=== PATIENT | male | born 1955 | race Caucasian/White ===

== ENCOUNTER 2024-08-12 09:55 | Emergency (ER) | payer MEDICARE, SELFPAY ==
--- OUTSIDE RECORDS SUMMARY | 2024-08-12 09:58 | XMS_ITS | Clinical Summary ---
Author Organization [place] Address [facility] [place] [address] Care Team Providers Care Crystal Attacher Name Role Phone [facility], [facility] Primary Care Provider Allergies No known active allergies Medications albuterol (PROAIR HFA/PROVENTIL HFA/VENTOLIN HFA) 108 (90 Base) MCG/ACT inhalerIndicatio ns:Moderate persistent asthma with acute exacerbation,Chr onic obstructive pulmonary disease, unspecified COPD type (H) Inhale 2 puffs into the lungs every 4 hours as needed for shortness of breath, wheezing or cough. 18 g 3 5 Active ipratropium - albuterol 0.5 mg/2.5 mg/3 mL (DUONEB) 0.5-2.5 (3) MG/3ML neb solutionIndicati ons:Moderate persistent asthma with acute exacerbation,Chr onic obstructive pulmonary disease, unspecified COPD type (H) Take 1 vial (3 mLs) by nebulization every 6 hours as needed for shortness of breath, wheezing or cough. 90 mL 3 5 Active guaiFENesin (MUCINEX) 600 MG 12 hr tabletIndication s:Chronic obstructive pulmonary disease, unspecified COPD type (H) Take 2 tablets (1,200 mg) by mouth 2 times daily. 60 tablet 5 Active predniSONE (DELTASONE) 20 MG tabletIndication s:Chronic obstructive pulmonary disease, unspecified COPD type (H) 60 mg po every day x 3 days then 40 mg every day x 7 days, then 30 mg po every day x 7 days, then 20 mg po every day x 7 days, then 10 mg po every day x 10 days then stop 50 tablet Active tiotropium (SPIRIVA RESPIMAT) 2.5 MCG/ACT inhalerIndicatio ns:Chronic obstructive pulmonary disease, unspecified COPD type (H) Inhale 2 puffs into the lungs daily. 4 g 3 5 Active Olodaterol HCl (STRIVERDI RESPIMAT) 2.5 MCG/ACT AERSIndications: COPD exacerbation (H) Inhale 2 puffs into the lungs daily. 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 Moderate persistent asthma with acute exacerbati on 07/17/2023 Encounters Date Type Department Care Team Description 06/21/2024 1:15 PM PATIENT SAFETY COORDINATOR - 06/22/2024 5:18 PM PATIENT SAFETY COORDINATOR [facility] Observation Dept [address] [place] [address] Kartik Valencia MD Young, Juan C Franks MD Hepatic cirrhosis, unspecified hepatic cirrhosis type, unspecified whether ascites present (H) (Primary Dx); Acute respiratory failure with hypoxia (H); COPD exacerbation (H); Moderate persistent asthma with acute exacerbation; Chronic obstructive pulmonary disease, unspecified COPD type (H) Discharge Disposition: Home or Self Care 06/21/2024 Travel from Last 3 Months Social History Tobacco Use Types Packs/Day Years Used Date Smoking Tobacco: Never Assessed Adolescent Education Answer Date Record ed Getting School Help Needed Not on file 07/17 Sex and Gender Information Value Date Recorded Sex Assigned at Not on file Legal Sex Male 3:43 AM PATIENT SAFETY COORDINATOR Gender Identity Not on file Sexual Orientation Not on file Last Filed Vital Signs Vital Sign Reading Time Taken Comments Blood Pressure 153/73 06/22/2024 3:32 PM PATIENT SAFETY COORDINATOR Pulse 102 06/22/2024 3:32 PM PATIENT SAFETY COORDINATOR Temperature 36.7 C (98 F) 06/22/2024 3:32 PM PATIENT SAFETY COORDINATOR Respiratory Rate 20 06/22/2024 3:32 PM PATIENT SAFETY COORDINATOR Oxygen Saturation 92% 06/22/2024 3:32 PM PATIENT SAFETY COORDINATOR Inhaled Oxygen Concentration - - Weight 65.4 kg (144 lb 2.9 oz) 06/22/2024 12:26 PM PATIENT SAFETY COORDINATOR Height 177.8 cm (5' 10) 06/22/2024 12:26 PM PATIENT SAFETY COORDINATOR Body Mass Index 20.69 06/22/2024 12:26 PM PATIENT SAFETY COORDINATOR Plan of Treatment Health Maintenance Due Date Last Done Comments ADVANCE CARE PLANNING 1955 ANNUAL REVIEW OF HM ORDERS [address] COPD ACTION PLAN [address] CT COLONOGRAPHY 1957 FIT 1957 FLEX SIG 1957 SPIROMETRY 1957 sDNA (Cologuard) 1957 COLONOSCOPY 11/04/1967 COLORECTAL CANCER SCREENING 11/04/1967 Pneumococcal Vaccine: 50+ Years (1 of 2 - PCV) 1976 ZOSTER IMMUNIZATION (1 of 2) 11/04/2007 DTAP/TDAP/TD IMMUNIZATION (1 - Tdap) 06/01/2009 05/31/2009 RSV VACCINE (1 - Risk 60-74 years 1-dose series) 2017 FALL RISK ASSESSMENT 2022 MEDICARE ANNUAL WELLNESS VISIT 2022 COVID-19 Vaccine ( - 2023- season) 2024 INFLUENZA VACCINE (#1) 2024 04/07/2010 PHQ-2 (once per calendar year) 2024 GLUCOSE 06/22/2027 06/22/2024, 05/31, 07/19/2023, Additional history exists LIPID 07/18/2028 07/18/2023 HEPATITIS A IMMUNIZATION Completed 008, 03/13/2007, 02/10/2007 HEPATITIS B IMMUNIZATION Completed 008, 03/13/2007, 02/10/2007 HEPATITIS C SCREENING Completed 2009 HPV IMMUNIZATION Aged Out No longer e ligible based on patient's age to complete this topic MENINGITIS IMMUNIZATION Aged Out No l onger eligible based on patient's age to complete this topic Procedures Procedure Name Priority Date/Time Associated Diagnosis Comments LACTIC ACID WHOLE BLOOD STAT 06/22/2024 8:27 AM PATIENT SAFETY COORDINATOR BASIC METABOLIC PANEL STAT 06/22/2024 8:27 AM PATIENT SAFETY COORDINATOR LACTIC ACID WHOLE BLOOD STAT 06/21/2024 6:01 PM PATIENT SAFETY COORDINATOR TROPONIN T, HIGH SENSITIVITY STAT 06/21/2024 3:58 PM PATIENT SAFETY COORDINATOR LACTIC ACID WHOLE BLOOD STAT 06/21/2024 3:58 PM PATIENT SAFETY COORDINATOR CT CHEST PULMONARY EMBOLISM W CONTRAST STAT 06/21/2024 3:17 PM PATIENT SAFETY COORDINATOR XR CHEST PORT 1 VIEW STAT 06/21/2024 2:18 PM PATIENT SAFETY COORDINATOR INFLUENZA A/B, RSV AND SARS-COV2 PCR STAT 06/21/2024 1:36 PM PATIENT SAFETY COORDINATOR CBC WITH PLATELETS & DIFFERENTIAL STAT 06/21/2024 1:31 PM PATIENT SAFETY COORDINATOR D DIMER QUANTITATIVE STAT 06/21/2024 1:31 PM PATIENT SAFETY COORDINATOR CBC WITH PLATELETS AND DIFFERENTIAL STAT 06/21/2024 1:31 PM PATIENT SAFETY COORDINATOR EXTRA RED TOP TUBE STAT 06/21/2024 1: 31 PM PATIENT SAFETY COORDINATOR EXTRA BLUE TOP TUBE STAT 06/21/2024 1 :31 PM PATIENT SAFETY COORDINATOR NT PROBNP INPATIENT STAT 06/21/2024 1 :31 PM PATIENT SAFETY COORDINATOR BLOOD GAS VENOUS STAT 06/21/2024 1:31 PM PATIENT SAFETY COORDINATOR TROPONIN T, HIGH SENSITIVITY STAT 06/21/2024 1:31 PM PATIENT SAFETY COORDINATOR LACTIC ACID WHOLE BLOOD WITH 1X REPEAT IN 2 HR WHEN >2 STAT 06/21/2024 1:31 PM PATIENT SAFETY COORDINATOR COMPREHENSIVE METABOLIC PANEL STAT 06/21/2024 1:31 PM PATIENT SAFETY COORDINATOR EXTRA TUBE STAT 06/21/2024 1:31 PM PATIENT SAFETY COORDINATOR EKG 12-LEAD, TRACING ONLY STAT 06/21/2024 1:24 PM PATIENT SAFETY COORDINATOR EKG CARDIAC - HIM SCAN 12:00 AM PATIENT SAFETY COORDINATOR LIPID REFLEX TO DIRECT LDL PANEL Routine 07/18/2023 7:26 AM PATIENT SAFETY COORDINATOR from Last 3 Months or Most Recently Relevant to Health Maintenance Results * Lactic acid whole blood (06/22/2024 8:27 AM PATIENT SAFETY COORDINATOR) Only the most recent of3 resultswithin the time period is included. Lactic Acid 1.9 0.7 - 2.0 mmol/L 06/22/2024 8:35 AM PATIENT SAFETY COORDINATOR LABORATORY Blood STRUCTURE OF LEFT HAND / Unknown Venipuncture / Unknown 06/22/2024 8:27 AM PATIENT SAFETY COORDINATOR 06/22/2024 8:33 AM PATIENT SAFETY COORDINATOR us Monica Guy MD LAB - BLOOD ORDERABLES Final Res ult LABORATORY [facility] [address] [facility] Lab (1st floor, no room number) [place] [address] * (ABNORMAL) Basic metabolic panel (06/22/2024 8:27 AM PATIENT SAFETY COORDINATOR) Sodium 133(L) 135 - 145 mmol/L 06/22/2024 9:14 AM PATIENT SAFETY COORDINATOR LABORATORY Potassium 4.1 3.4 - 5.3 mmol/L 06/22/2024 9:14 AM PATIENT SAFETY COORDINATOR LABORATORY Chloride 103 98 - 107 mmol/L 06/22/2024 9:14 AM PATIENT SAFETY COORDINATOR LABORATORY Carbon Dioxide (CO2) 19(L) 22 - 29 mmol/L 06/22/2024 9:14 AM PATIENT SAFETY COORDINATOR LABORATORY Anion Gap 11 7 - 15 mmol/L 06/22/2024 9:14 AM PATIENT SAFETY COORDINATOR LABORATORY Urea Nitrogen 11.0 8.0 - 23.0 mg/dL 06/22/2024 9:14 AM PATIENT SAFETY COORDINATOR LABORATORY Creatinine 0.68 0.67 - 1.17 mg/dL 06/22/2024 9:14 AM PATIENT SAFETY COORDINATOR LABORATORY GFR Estimate >90 >60 mL/min/1.7 3m2 06/22/2024 9:14 AM PATIENT SAFETY COORDINATOR LABORATORY Comment:eGFR calculated usin 2020 CKD-EPI equation. Calcium 8.6(L) 8.8 - 10.4 mg/dL 06/22/2024 9:14 AM PATIENT SAFETY COORDINATOR LABORATORY Comment:Reference intervals for this test were updated on 12/13/2023 to reflect our healthy population more accurately. There may be differences in the flagging of prior results with similar values performed with this method. Those prior results can be interpreted in the context of the updated reference intervals. Glucose 112(H) 70 - 99 mg/dL 06/22/2024 9:14 AM PATIENT SAFETY COORDINATOR LABORATORY Blood STRUCTURE OF LEFT HAND / Unknown Venipuncture / Unknown 06/22/2024 8:27 AM PATIENT SAFETY COORDINATOR 06/22/2024 8:33 AM PATIENT SAFETY COORDINATOR Мария Woods PA-C LAB - BLOOD ORDERABLES F inal Result LABORATORY [facility] [address] [facility] Lab (1st floor, no room number) [place] [address], [facility] * Troponin T, High Sensitivity (06/21/2024 3:58 PM PATIENT SAFETY COORDINATOR) Only the most recent of2 resultswithin the time period is included. Pathologist [facility] Troponin T, High Sensitivity 8 <=22 ng/L 06/21/2024 4:34 PM PATIENT SAFETY COORDINATOR LABORATORY Comment: Either a High Sensitivity Troponin T baseline (0 hours) value = 100 ng/L, or an increase in High Sensitivity Troponin T = 7 ng/L at 2 hours compared to 0 hours (2-0 hours), suggests myocardial injury, and urgent clinical attention is required. If the 2-0 hours increase is <7 ng/L, a High Sensitivity Troponin T result above gender-specific reference ranges warrants further evaluation. Recommendations for further evaluation include correlation with clinical decision-making tool (e.g., HEART), a 3rd High Sensitivity Troponin T test 2 hours after the 2nd (a 20% change from baseline would represent concern), admission for observation, close PCC/cardiology follow-up, or urgent outpatient provocative testing. Blood BLOOD SPECIMEN / Unknown Venipuncture / Unknown 06/21/2024 3:58 PM PATIENT SAFETY COORDINATOR 06/21/2024 4:10 PM PATIENT SAFETY COORDINATOR us Kartik Valencia MD LAB - BLOOD ORDERABLES Final Result [facility] [address] Lab (1st floor, no room number) [place] [address], [facility] * CT Chest Pulmonary Embolism w Contrast (06/21/2024 3:17 PM PATIENT SAFETY COORDINATOR) Anatomical Region Laterality Modality Chest, SUBRAD CT BODY, UMP CT CHEST Computed Tomography 06/21/2024 3:17 PM PATIENT SAFETY COORDINATOR Impressions 06/21/2024 3:41 PM PATIENT SAFETY COORDINATOR IMPRESSION: 1. No pulmonary artery embolism. 2. Mild emphysema and mild bronchiolitis. No pneumonic infiltrate or pleural effusion. 3. Cirrhosis and upper abdominal varices likely reflecting sequelae of portal venous hypertension. 4. Cholelithiasis. Narrative 06/21/2024 3:41 PM PATIENT SAFETY COORDINATOR EXAM: CT CHEST PULMONARY EMBOLISM W CONTRAST LOCATION: [facility] DATE: 06/21/2024 INDICATION: SOB, elevated dimer, eval PE COMPARISON: CT 07/17/2023 TECHNIQUE: CT chest pulmonary angiogram during arterial phase injection of IV contrast. Multiplanar reformats and MIP reconstructions were performed. Dose reduction techniques were used. CONTRAST: 54mL Isovue 370 FINDINGS: ANGIOGRAM CHEST: Pulmonary arteries are normal caliber and negative for pulmonary emboli. Thoracic aorta is negative for dissection. No CT evidence of right heart strain. LUNGS AND PLEURA: Minimal tracheal secretions. Mild bronchial wall thickening and endobronchial mucus impaction. Minimal tree-in-bud opacities. Mild upper lobar predominant emphysema. No pneumonic consolidation or pleural effusion. MEDIASTINUM/AXILLAE: Bilateral gynecomastia. Prominent likely reactive right hilar lymph nodes are decreased in size since the prior exam. Normal heart size and no pericardial effusion. CORONARY ARTERY CALCIFICATION: Mild. UPPER ABDOMEN: Cholelithiasis. Cirrhotic liver morphology with a nodular surface contour. Partially visualized upper abdominal varices. MUSCULOSKELETAL: Spinal degenerative changes. Stable L2 vertebral body compression deformity with endplate lucencies likely reflecting intraosseous disc herniations. Procedure Note Jonathon Page MD - 06/21/2024 EXAM: CT CHEST PULMONARY EMBOLISM W CONTRAST LOCATION: [facility] DATE: 06/21/2024 INDICATION: SOB, elevated dimer, eval PE COMPARISON: CT 07/17/2023 TECHNIQUE: CT chest pulmonary angiogram during arterial phase injection ofIV contrast. Multiplanar reformats and MIP reconstructions were performed.Dose reduction techniques were used. CONTRAST: 54mL Isovue 370 FINDINGS: ANGIOGRAM CHEST: Pulmonary arteries are normal caliber and negative forpulmonary emboli. Thoracic aorta is negative for dissection. No CTevidence of right heart strain. LUNGS AND PLEURA: Minimal tracheal secretions. Mild bronchial wallthickening and endobronchial mucus impaction. Minimal iapb-sh-jebeqojplret. Mild upper lobar predominant emphysema. No pneumonicconsolidation or pleural effusion. MEDIASTINUM/AXILLAE: Bilateral gynecomastia. Prominent likely reactiveright hilar lymph nodes are decreased in size since the prior exam. Normalheart size and no pericardial effusion. CORONARY ARTERY CALCIFICATION: Mild. UPPER ABDOMEN: Cholelithiasis. Cirrhotic liver morphology with a nodularsurface contour. Partially visualized upper abdominal varices. MUSCULOSKELETAL: Spinal degenerative changes. Stable L2 vertebral bodycompression deformity with endplate lucencies likely reflectingintraosseous disc herniations. IMPRESSION: 1. No pulmonary artery embolism. 2. Mild emphysema and mild bronchiolitis. No pneumonic infiltrate orpleural effusion. 3. Cirrhosis and upper abdominal varices likely reflecting sequelae ofportal venous hypertension. 4. Cholelithiasis. us Kartik Valencia MD IMG CT ORDERABLES Final Resu lt * XR Chest Port 1 View (06/21/2024 2:18 PM PATIENT SAFETY COORDINATOR) Anatomical Region Laterality Modality Chest Digital Radiogra phy 06/21/2024 2:18 PM PATIENT SAFETY COORDINATOR Impressions 06/21/2024 2:25 PM PATIENT SAFETY COORDINATOR IMPRESSION: No focal airspace opacities, pleural effusion or pneumothorax. Normal heart size. Hyperinflated lungs. Stable small metallic fragment in the right chest wall. Narrative 06/21/2024 2:25 PM PATIENT SAFETY COORDINATOR EXAM: XR CHEST PORT 1 VIEW LOCATION: [facility] DATE: 06/21/2024 INDICATION: SOB COMPARISON: 07/17/2023 Procedure Note Rekha Moseley MD - 06/21/2024 EXAM: XR CHEST PORT 1 VIEW LOCATION: [facility] DATE: 06/21/2024 INDICATION: SOB COMPARISON: 07/17/2023 IMPRESSION: No focal airspace opacities, pleural effusion or pneumothorax.Normal heart size. Hyperinflated lungs. Stable small metallic fragment inthe right chest wall. us Kartik Valencia MD IM DIAGNOSTIC IMAGING ORDER TELLY Final Result * Influenza A/B, RSV and SARS-CoV2 PCR (COVID-19) Nasopharyngeal (06/21/2024 1:36 PM PATIENT SAFETY COORDINATOR) Influenza A PCR Negative Negative 06/21/2024 2:29 PM PATIENT SAFETY COORDINATOR LABORATORY Influenza B PCR Negative Negative 06/21/2024 2:29 PM PATIENT SAFETY COORDINATOR LABORATORY RSV PCR Negative Negative 06/21/2024 2:29 PM PATIENT SAFETY COORDINATOR LABORATORY SARS CoV2 PCR Negative Negative 06/21/2024 2:29 PM PATIENT SAFETY COORDINATOR LABORATORY Comment:NEGATIVE: SARS-CoV-2 (COVID-19) RNA not detected, presumed negative. Swab NASOPHARYNGEAL STRUCTURE / Unknown Non-blood Collection / Unknown 06/21/2024 1:36 PM PATIENT SAFETY COORDINATOR 06/21/2024 1:41 PM PATIENT SAFETY COORDINATOR [facility] LABORATORY - 06/21/2024 2:29 PM PATIENT SAFETY COORDINATOR Testing was performed using the Xpert Xpress CoV2/Flu/RSV Assay on the [employer] GeneXpert Instrument. This test should be ordered for the detection of SARS- CoV2, influenza, and RSV viruses in individuals with signs and symptoms of respiratory tract infection. This test is for in vitro diagnostic use under the [place] FDA for laboratories certified under CLIA to perform high or moderate complexity testing. This test has been [place] FDA cleared. A negative result does not rule out the presence of PCR inhibitors in the specimen or target RNA in concentration below the limit of detection for the assay. If only one viral target is positive but coinfection with multiple targets is suspected, the sample should be re-tested with another FDA cleared, approved, or authorized test, if coninfection would change clinical management. This test was validated by the [facility]. These laboratories are certified under the Clinical Laboratory Improvement Amendments of 1988 (CLIA-88) as qualified to perfom high complexity laboratory testing. Kartik Valencia MD LAB - MICRO GENERAL ORDERABL ES Final Result [facility] [address] Lab (1st floor, no room number) [place] [address], [facility] * Extra Red Top Tube (06/21/2024 1:31 PM PATIENT SAFETY COORDINATOR) Hold Specimen [facility] 06/21/2024 2:46 PM PATIENT SAFETY COORDINATOR [facility] LABORATORY Blood BLOOD SPECIMEN / Unknown Venipuncture / Unknown 06/21/2024 1:31 PM PATIENT SAFETY COORDINATOR 06/21/2024 1:42 PM PATIENT SAFETY COORDINATOR Buck Gutiérrez MD LAB - BLOOD ORDERABLES Final Result Performing Organization Address City/[facility]/ZIP Co de Phone Number [facility] [address] Lab (1st floor, no room number) [place] [address], [facility] * Extra Blue Top Tube (06/21/2024 1:31 PM PATIENT SAFETY COORDINATOR) Hold Specimen [facility] 06/21/2024 2:46 PM PATIENT SAFETY COORDINATOR LABORATORY Blood BLOOD SPECIMEN / Unknown Venipuncture / Unknown 06/21/2024 1:31 PM PATIENT SAFETY COORDINATOR 06/21/2024 1:42 PM PATIENT SAFETY COORDINATOR Buck Gutiérrez MD LAB - BLOOD ORDERABLES Final Result [facility] [address] Lab (1st floor, no room number) [place] [address], [facility] * (ABNORMAL) Lactic acid whole blood with 1x repeat in 2 hr when >2 (06/21/2024 1:31 PM PATIENT SAFETY COORDINATOR) Pathologist [facility] Lactic Acid, Initial 3.6(H) 0.7 - 2.0 mmol/L 06/21/2024 1:49 PM PATIENT SAFETY COORDINATOR [facility] LABORATORY Blood BLOOD SPECIMEN / Unknown Venipuncture / Unknown 06/21/2024 1:31 PM PATIENT SAFETY COORDINATOR 06/21/2024 1:41 PM PATIENT SAFETY COORDINATOR us Kartik Valencia MD LAB - BLOOD ORDERABLES Final Result [facility] LABORATORY [facility] [address] [facility] Lab (1st floor, no room number) [place] [address] * (ABNORMAL) CBC with platelets and differential (06/21/2024 1:31 PM PATIENT SAFETY COORDINATOR) [facility] WBC Count 5.2 4.0 - 11.0 10e3/uL 06/21/2024 2:04 PM PATIENT SAFETY COORDINATOR [facility] LABORATORY RBC Count 4.91 4.40 - 5.90 10e6/uL 06/21/2024 2:04 PM PATIENT SAFETY COORDINATOR [facility] LABORATORY Hemoglobin 15.1 13.3 - 17.7 g/dL 06/21/2024 2:04 PM PATIENT SAFETY COORDINATOR [facility] LABORATORY Hematocrit 44.6 40.0 - 53.0 % 06/21/2024 2:04 PM PATIENT SAFETY COORDINATOR [facility] LABORATORY MCV 91 78 - 100 fL 06/21/2024 2:04 PM PATIENT SAFETY COORDINATOR [facility] LABORATORY MCH 30.8 26.5 - 33.0 pg 06/21/2024 2:04 PM PATIENT SAFETY COORDINATOR [facility] LABORATORY MCHC 33.9 31.5 - 36.5 g/dL 06/21/2024 2:04 PM PATIENT SAFETY COORDINATOR [facility] LABORATORY RDW 15.7(H) 10.0 - 15.0 % 06/21/2024 2:04 PM PATIENT SAFETY COORDINATOR [facility] LABORATORY Platelet Count 137(L) 150 - 450 10e3/uL 06/21/2024 2:04 PM PATIENT SAFETY COORDINATOR [facility] LABORATORY % Neutrophils 44 % 06/21/2024 2:04 PM PATIENT SAFETY COORDINATOR [facility] LABORATORY % Lymphocytes 24 % 06/21/2024 2:04 PM PATIENT SAFETY COORDINATOR [facility] LABORATORY % Monocytes 14 % 06/21/2024 2:04 PM PATIENT SAFETY COORDINATOR [facility] LABORATORY % Eosinophils 15 % 06/21/2024 2:04 PM PATIENT SAFETY COORDINATOR [facility] LABORATORY % Basophils 3 % 06/21/2024 2:04 PM PATIENT SAFETY COORDINATOR [facility] LABORATORY % Immature Granulocytes 0 % 06/21/2024 2:04 PM PATIENT SAFETY COORDINATOR [facility] LABORATORY NRBCs per 100 WBC 0 <1 /100 025 2:04 PM PATIENT SAFETY COORDINATOR [facility] LABORATORY Absolute Neutrophils 2.3 1.6 - 8.3 10e3/uL 06/21/2024 2:04 PM PATIENT SAFETY COORDINATOR [facility] LABORATORY Absolute Lymphocytes 1.2 0.8 - 5.3 10e3/uL 06/21/2024 2:04 PM PATIENT SAFETY COORDINATOR [facility] LABORATORY Absolute Monocytes 0.7 0.0 - 1.3 10e3/uL 06/21/2024 2:04 PM PATIENT SAFETY COORDINATOR [facility] LABORATORY Absolute Eosinophils 0.8(H) 0.0 - 0.7 10e3/uL 06/21/2024 2:04 PM PATIENT SAFETY COORDINATOR [facility] LABORATORY Absolute Basophils 0.1 0.0 - 0.2 10e3/uL 06/21/2024 2:04 PM PATIENT SAFETY COORDINATOR [facility] LABORATORY Absolute Immature Granulocytes 0.0 <=0.4 10e3/uL 06/21/2024 2:04 PM PATIENT SAFETY COORDINATOR [facility] LABORATORY Absolute NRBCs 0.0 10e3/uL 06/21/2024 2:04 PM PATIENT SAFETY COORDINATOR [facility] LABORATORY Blood BLOOD SPECIMEN / Unknown Venipuncture / Unknown 06/21/2024 1:31 PM PATIENT SAFETY COORDINATOR 06/21/2024 1:42 PM PATIENT SAFETY COORDINATOR us Kartik Valencia MD LAB - BLOOD ORDERABLES Final Result RH LABORATORY [facility] [address] Lab (1st floor, no room number) [place] [address], [facility] * Nt probnp inpatient (BNP) (06/21/2024 1:31 PM PATIENT SAFETY COORDINATOR) [facility] N terminal Pro BNP Inpatient 56 0 - 900 pg/mL 06/21/2024 2:45 PM PATIENT SAFETY COORDINATOR [facility] LABORATORY Comment: Reference range shown and results flagged as abnormal are suggested inpatient cut points for confirming diagnosis if CHF in an acute setting. Establishing a baseline value for each individual patient is useful for follow-up. An inpatient or emergency department NT-proPBNP <300 pg/mL effectively rules out acute CHF, with 99% negative predictive value. The outpatient non-acute reference range for ruling out CHF is: 0-125 pg/mL (age 18 to less than 75) 0-450 pg/mL (age 75 yrs and older) Blood BLOOD SPECIMEN / Unknown Venipuncture / Unknown 06/21/2024 1:31 PM PATIENT SAFETY COORDINATOR 06/21/2024 1:42 PM PATIENT SAFETY COORDINATOR us Kartik Valencia MD LAB - BLOOD ORDERABLES Final Result RH LABORATORY [facility] [address] [facility] Lab (1st floor, no room number) [place] [address] * (ABNORMAL) D dimer quantitative (06/21/2024 1:31 PM PATIENT SAFETY COORDINATOR) [facility] D-Dimer Quantitative 1.06(H) 0.00 - 0.50 ug/mL FEU 06/21/2024 2:26 PM PATIENT SAFETY COORDINATOR [facility] LABORATORY Blood BLOOD SPECIMEN / Unknown Venipuncture / Unknown 06/21/2024 1:31 PM PATIENT SAFETY COORDINATOR 06/21/2024 1:42 PM PATIENT SAFETY COORDINATOR Narrative LABORATORY - 06/21/2024 2:26 PM PATIENT SAFETY COORDINATOR This D-dimer assay is intended for use in conjunction with a clinical pretest probability assessment model to exclude pulmonary embolism (PE) and deep venous thrombosis (DVT) in outpatients suspected of PE or DVT. The cut-off value is 0.50 ug/mL FEU. For patients 50 years of age or older, the application of age-adjusted cut-off values for D-Dimer may increase the specificity without significant effect on sensitivity. The literature suggested calculation age adjusted cut-off in ug/L = age in years x 10 ug/L. The results in this laboratory are reported as ug/mL rather than ug/L. The calculation for age adjusted cut off in ug/mL= age in years x 0.01 ug/mL. For example, the cut off for a 76 year old male is 78 x 0.01 ug/mL = 0.76 ug/mL (760 ug/L). M Gi et al. Age adjusted D-dimer cut-off levels to rule out pulmonary embolism: The ADJUST-PE Study. DEANNA 2014;311:7846-3784.; HJ Kin et al. Diagnostic accuracy of conventional or age adjusted D-dimer cutoff values in older patients with suspected venous thromboembolism. Systemic review and meta-analysis. BMJ 2013:346:f2492. us Kartik Valencia MD LAB - BLOOD ORDERABLES Final Result RH LABORATORY [facility] [address] [facility] Lab (1st floor, no room number) [place] [address], [facility] * (ABNORMAL) Comprehensive metabolic panel (06/21/2024 1:31 PM PATIENT SAFETY COORDINATOR) Sodium 138 135 - 145 mmol/L 06/21/2024 2:08 PM [facility] Potassium 3.9 3.4 - 5.3 mmol/L 06/21/2024 2:08 PM [facility] Carbon Dioxide (CO2) 21(L) 22 - 29 mmol/L 06/21/2024 2:08 PM [facility] Anion Gap 14 7 - 15 mmol/L 06/21/2024 2:08 PM [facility] Urea Nitrogen 8.1 8.0 - 23.0 mg/dL 06/21/2024 2:08 PM [facility] Creatinine 0.79 0.67 - 1.17 mg/dL 06/21/2024 2:08 PM [facility] GFR Estimate >90 >60 mL/min/1.7 3m2 06/21/2024 2:08 PM [facility] Comment:eGFR calculated us2020 CKD-EPI equation. Calcium 8.7(L) 8.8 - 10.4 mg/dL 06/21/2024 2:08 PM [facility] Comment:Reference intervals for this test were updated on 12/13/2023 to reflect our healthy population more accurately. There may be differences in the flagging of prior results with similar values performed with this method. Those prior results can be interpreted in the context of the updated reference intervals. Chloride 103 98 - 107 mmol/L 06/21/2024 2:08 PM [facility] Glucose 106(H) 70 - 99 mg/dL 06/21/2024 2:08 PM PATIENT SAFETY COORDINATOR [facility] Alkaline Phosphatase 134 40 - 150 U/L 06/21/2024 2:08 PM PATIENT SAFETY COORDINATOR [facility] AST 71(H) 0 - 45 U/L 06/21/2024 2:08 PM PATIENT SAFETY COORDINATOR [facility] ALT 42 0 - 70 U/L 06/21/2024 2:08 PM PATIENT SAFETY COORDINATOR [facility] Protein Total 7.5 6.4 - 8.3 g/dL 06/21/2024 2:08 PM PATIENT SAFETY COORDINATOR [facility] Albumin 3.7 3.5 - 5.2 g/dL 06/21/2024 2:08 PM PATIENT SAFETY COORDINATOR [facility] Bilirubin Total 1.7(H) <=1.2 mg/dL 06/21/2024 2:08 PM PATIENT SAFETY COORDINATOR [facility] Blood BLOOD SPECIMEN / Unknown Venipuncture / Unknown 06/21/2024 1:31 PM PATIENT SAFETY COORDINATOR 06/21/2024 1:42 PM PATIENT SAFETY COORDINATOR us Kartik Valencia MD LAB - BLOOD ORDERABLES Final Result [facility] [address] Lab (1st floor, no room number) [place] [address], [facility] * (ABNORMAL) Blood gas venous (06/21/2024 1:31 PM PATIENT SAFETY COORDINATOR) pH Venous 7.46(H) 7.32 - 7.43 06/21/2024 1:48 PM PATIENT SAFETY COORDINATOR [facility] pCO2 Venous 34(L) 40 - 50 mm Hg 06/21/2024 1:48 PM PATIENT SAFETY COORDINATOR [facility] pO2 Venous 44 25 - 47 mm Hg 06/21/2024 1:48 PM PATIENT SAFETY COORDINATOR [facility] Bicarbonate Venous 24 21 - 28 mmol/L 06/21/2024 1:48 PM PATIENT SAFETY COORDINATOR [facility] Base Excess/Deficit Venous 0.7 -3.0 - 3.0 mmol/L 06/21/2024 1:48 PM PATIENT SAFETY COORDINATOR [facility] FIO2 21 VIRGEN 06/21/2024 1:48 PM PATIENT SAFETY COORDINATOR [facility] Oxyhemoglobin Venous 78(H) 70 - 75 % 06/21/2024 1:48 PM PATIENT SAFETY COORDINATOR [facility] O2 Sat, Venous 79.5(H) 70.0 - 75.0 % 06/21/2024 1:48 PM PATIENT SAFETY COORDINATOR [facility] Blood, venous BLOOD SPECIMEN / Unknown Venipuncture / Unknown 06/21/2024 1:31 PM PATIENT SAFETY COORDINATOR 06/21/2024 1:41 PM PATIENT SAFETY COORDINATOR Narrative [facility] - 06/21/2024 1:48 PM PATIENT SAFETY COORDINATOR In healthy individuals, oxyhemoglobin (O2Hb) and oxygen saturation (SO2) are approximately equal. In the presence of dyshemoglobins, oxyhemoglobin can be considerably lower than oxygen saturation. us Kartik Valencia MD LAB - BLOOD ORDERABLES Final Result LABORATORY [facility] [address] [facility] Lab (1st floor, no room number) [place] [address] * EKG 12-lead, tracing only (06/21/2024 1:24 PM PATIENT SAFETY COORDINATOR) Systolic Blood Pressure mmHg RADIOLOGY RESULTS Diastolic Blood Pressure mmHg RADIOLOGY RESULTS Ventricular Rate 95 BPM RAD IOLOGY RESULTS Atrial Rate 95 BPM RADIOLOG Y RESULTS MS Interval 160 ms RADIOLOG Y RESULTS QRS Duration 72 ms RADIOLO GY RESULTS QT 352 ms RADIOLOGY RESULTS QTc 442 ms RADIOLOGY RESULTS P [place] 64 degrees RADIOLOGY RESULTS R AXIS 44 degrees RADIOLOGY RESULTS T [place] 78 degrees RADIOLOGY RESULTS Interpretation ECG Sinus rhythm Septal infarct (cited on or before 17-Jul-2023) Abnormal ECG When compared with ECG of 17-Jul-2023 10:13, No significant change was found Unconfirmed report - interpretation of this ECG is computer generated - see medical record for final interpretation Confirmed by - EMERGENCY ROOM, PHYSICIAN ([id number]), desk editor Natanael Brandon ([id number]) on 06/21/2024 1:36:53 PM RADIOLOGY RESULTS 06/21/2024 1:24 PM PATIENT SAFETY COORDINATOR 06/21/2024 1:36 PM PATIENT SAFETY COORDINATOR us Buck Gutiérrez MD ECG ORDERABLES Edited Result - Final RADIOLOGY RESULTS * EKG Cardiac - HIM Scan (06/21/2024 12:00 AM PATIENT SAFETY COORDINATOR) 06/21/2024 us Provider Outside ECG ORDERABLES Final Result * Lipid panel reflex to direct LDL (07/18/2023 7:26 AM PATIENT SAFETY COORDINATOR) Cholesterol 108 <200 mg/dL 07/18/2023 11:34 AM PATIENT SAFETY COORDINATOR [facility] Triglycerides 31 <150 mg/dL 07/18/2023 11:34 AM PATIENT SAFETY COORDINATOR [facility] Direct Measure HDL 57 >=40 mg/dL 07/18/2023 11:34 AM PATIENT SAFETY COORDINATOR [facility] LDL Cholesterol Calculated 45 <=100 mg/dL 07/18/2023 11:34 AM PATIENT SAFETY COORDINATOR [facility] Non HDL Cholesterol 51 <130 mg/dL 07/18/2023 11:34 AM PATIENT SAFETY COORDINATOR [facility] Patient Fasting > 8hrs? Unknown 07/18/2023 11:34 AM PATIENT SAFETY COORDINATOR [facility] Blood STRUCTURE OF RIGHT UPPER LIMB / Unknown Venipuncture / Unknown 07/18/2023 7:26 AM PATIENT SAFETY COORDINATOR 07/18/2023 7:31 AM PATIENT SAFETY COORDINATOR Narrative [facility] - 07/18/2023 11:34 AM PATIENT SAFETY COORDINATOR Cholesterol Desirable: <200 mg/dL Triglycerides Normal: Less than 150 mg/dL Borderline High: 150-199 mg/dL High: 200-499 mg/dL Very High: Greater than or equal to 500 mg/dL Direct Measure HDL Female: Greater than or equal to 50 mg/dL Male: Greater than or equal to 40 mg/dL LDL Cholesterol Desirable: <100mg/dL Above Desirable: 100-129 mg/dL Borderline High: 130-159 mg/dL High: 160-189 mg/dL Very High: >= 190 mg/dL Non HDL Cholesterol Desirable: 130 mg/dL Above Desirable: 130-159 mg/dL Borderline High: 160-189 mg/dL High: 190-219 mg/dL Very High: Greater than or equal to 220 mg/dL Мария Woods PA-C LAB - BLOOD ORDERABLES F inal Result [facility] [address] [address], [address] [place] [address], [facility] [phone] [facility] [address] Lab (1st floor, no room number) [place] [address], [facility] [phone] from Last 3 Months or Most Recently Relevant to Health Maintenance Insurance MEDICARE MEDICARE MEDICARE MEDICARE * Guarantor: [id number] Account Type Relation to Patient Date of Phone Billing Address Worker's Compensation Employer [phone] (Home) [address] [place] [address] OTHER Member Subscriber Plan / Payer (Ef fective 2005-Present) Name:Myke Aggarwal J Relation to Subscriber:Employee Name:[id number] Subscriber ID:[id number] Date of :1955 x35 (Home) Address: [address] [place] [address] Payer ID:[id number] Type:Not on file Address: [address] [place] [address] Advance Directives For more information, please contact: [phone] * Full Code (Latest Code Status on File) Date Activated Date Inactivated Comments 06/21/2024 7:14 PM 06/22/2024 7:23 PM All basic an d advanced life-sustaining interventions are performed as appropriate Question Answer Comments Code status determined by: Discussion with patie nt/ legal decision maker * Full Code Date Activated Date Inactivated Comments 07/17/2023 7:34 PM 07/19/2023 2:27 PM All basic an d advanced life-sustaining interventions are performed as appropriate Question Answer Comments Code status determined by: Discussion with alhajie nt/ legal decision maker Care Teams Crystal Attacher Relationship Specialty Start Date End Date [facility], [address] [address] PCP - General 06/21/24
--- OUTSIDE RECORDS SUMMARY | 2024-08-12 09:58 | XMS_ITS | Clinical Summary ---
Author Organization [facility] Address [address] [place] [address] Care Team Providers Care Data Coder Operator Name Role Phone Pcp, No Primary Care Provider Unavailabl e Allergies Active Allergy Reactions Criticality Noted Date Comments Carbidopa-Levodopa Palpitations 10/13/2009 Medications albuterol HFA (PROAIR HFA) 90 mcg/actuation inhalerIndicatio ns:Asthma Inhale 1-2 Puffs by mouth every 4 hours while awake. 1 Inhaler 3 09/13/2011 Active Active Problems Patient Care Coordination No te Formatting of this note migh t be different from the original. My Care Team Patient Care Team: Raimundo House as PCP - General [phone] Phan Cox RN, Antique Clocks Repairer [phone] Vania Nicholas Enterprise Software Developer [phone]- address: [facility] [employer], [address] [place] [phone] Bharti life skills coordinator volunteer at compliance attorney office [phone] And [place] [phone] Singh [phone]-[phone] Neurology Dr. Curiel - [facility] neurology clinic [phone], fax [phone], billing [phone] Silva Starks, Adult Protection case hardener [phone](direct) Social Service main # [phone] address is [address] [place] [address]. My Care Plan Problem: Under excess stress due to unemployment and awaiting social security disability Goal: System or plan in place to reduce stress Plan: Contact Vania Mack social sciences professor Responsibility: Myke and nurse wound carePhan Target Date: 06/22/2010 Achieved Date: Date and Name of User Interface Engineer: PHAN COX RN .................... 06/08/2010 3:03 PM Problem: Unable to afford medical care or medications Goal: Able to afford medical care or medications Plan: Contact [facility] social sciences professor, Vania Mack, set up appointment with Dr. Singh for F/U on Jul 06, 2010 Go to [facility] billing dept, discuss financial situation and negotiate a plan. Responsibility: Patient Target Date: 06/29/2010 Achieved Date: 08/19/2010 Date and Name of User Interface Engineer: PHAN COX RN .................... 06/15/2010 3:03 PM Problem: In unhappy or unsafe residential situation Goal: System or plan in place to improve residential situation Plan: Contact social sciences professorVania at [employer] contact Silva Starks [facility] [phone] Responsibility: Myke and nurse wound carePhan; Myke to contact Silva 09/03/10 9:45 am Target Date: 09/03/10 Discussed case with adult protection worker, Silva Starks. She will try to contact patient by letter. She also asks that when patient comes into clinic on September 03 at 9:45 am for F/U that Myke call her at [phone] to speak with her.PHAN COX RN .................... 08/03/2010 4:34 PM Achieved Date: Date and Name of User Interface Engineer: PHAN COX RN .................... 06/08/2010 3:03 PM Problem: Does not have Advance Care Plan in place Goal: Advance Care Plan on file Plan: Complete Health Care Directive Responsibility: Myke and nurse wound carePhan Target Date: 08/26/2010 Achieved Date: 06/15/2010 Date and Name of User Interface Engineer: PHAN COX RN .................... 06/08/2010 3:03 PM My Emergency Plan Medical - [facility] [phone] My Care Team Patient Care Team: Raimundo House as PCP - General [phone] Phan Cox RN- nurse wound care [phone] My Care Plan Problem: Blood pressure too high Goal: Maintains blood pressure at 130/80 or less Plan: Increase Lopressor to 50 mg two tablets twice a day and have blood pressure checked next week. See Dr. House on June 22, 2010 Responsibility: Myke Target Date: Have blood pressure checked Jun [address] House Jun 22. Achieved Date: 06/15/2010 Date and Name of User Interface Engineer: PHAN COX RN .................... 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 06/08/2010 3:08 PM Date and Name of User Interface Engineer: PHAN COX RN .................... 06/08/2010 3:08 PM Call Raimundo House MD at [phone] If Blood Pressure is 180/100 or greater. Rest for 10 minutes and recheck. If Blood Pressure is still elevated call your doctor. If Blood Pressure is 90/50 or lower. For severe headache not relieved with tylenol or other pain medications. New onset of Shortness of Breath that is not severe. Ongoing side effects from medications. Some common side effects are lightheaded, dizziness, frequent urination, dry mouth, nausea, sleepiness. Call 911 if Your are experiencing Severe shortness of breath Chest pain that is not relieved by nitroglycerin Sudden severe headache, with no known cause. Sudden Numbness or weakness of the face, arm or leg. Sudden confusion, trouble speaking or understanding. Sudden trouble seeing in one or both eyes. Sudden trouble walking, dizziness, loss of balance or coordination. 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 Depression with anxiety 07/02/2010 ACP (advance care planning) 06/15/2010 Overview (06/15/2010): Patient has identified Health Care Agent(s): Yes Add Health Care Agents: Yes Health Care Agent(s): Primary Health Care Agent: Jake Aggarwal Relationship: son Phone: Secondary Health Care Agent: NA Relationship: NA Phone: NA Conservator: NA Relationship: NA Phone: NA Guardian: NA Relationship: NA Phone: NA Patient has Advanced Care Plan Documents (Health Care Directive, POLST): Yes Advance Care Plan Documents: Health Care Directive Patient has identified Specific Treatment Preferences: Yes Specific Treatment Preferences: a.) Code Status: CPR/Attempt Resuscitation b.) Goals of Treatment: ii. Limited Interventions and treat reversible conditions. Provide interventions aimed at treatment of new or reversible illness/injury or non-life threatening chronic conditions. Duration of invasive or uncomfortable interventions should generally be limited.- Trial of intubation days or other instructions continue appropriate treatments if I will recover and return to an independent lifestyle with all of my limbs. Assessment & Plan (06/15/2010 2:53 PM BRINE ROOM LABORER): Advance Care Planning: Disease-specific Session Myke Aggarwal is a Medical Home patient at [facility]. Advance care planning discussions were completed with Myke. Initially Mkye did not wish to designate a health care agent stating that he would wish his choices, indicated in his Health Care Directive, to be honored and that he did not want his choices altered or put the burden of decision-making on his health care agent. Upon completion of his Health Care Directive, Myke wishes to name his son, Jake Aggarwal, as his health care agent and will speak to him about this. Understanding of Illness and Disease [place]: Myke identifies his medical condition as depressing and describes it as life limiting. He identifies the following symptoms of his medical condition as being the most bothersome: nerve damage and balance problem. After I got electrocuted my life changed. I don't work, I have no money, I have balance and walking problems. I also have hepatitis. I don't know how I got it. I really messed myself up with drugs, not eating properly, drinking, partying. I used drugs earlier in my life but I never shared needles. Maybe I got it from a hospital for maybe from my girlfriend who hung around other drug users. I am not sure if I want treatment for my liver. I am not sure I want chemo - that seems to be a treatment for my liver problem and I read that it can cause nerve damage and balance problems - I already have these and I wouldn't want them to get worse. I don't think I am dying from my liver - if the treatment would make my balance worse and affect my immune system, I don't know if I want to do it. My main concern is balance and coordination. Goals of Care: Myke currently hopes to maintain independence and control pain and symptoms. I wish I was never electrocuted back in 2000 -it messed up my nerves. I can't walk right and have poor balance. I can't lift heavy stuff. I miss work and having money. I can't ride a motorcycle or play sports. I'm not real social. I'd like to back to [employer]. Quality of Life: The following present and future experiences are most important for Myke to live well: reading psychology books and current events; Television - watching news and channel 2, Family Activities- visiting my mom in hospice, talking to my sons, sister and brothers: computer and and perhaps returning to technical college - I was going to classes for computer programming a while back. Myke uvaldo with serious challenges in his life: Family: 2 sons, siblings. Myke identifies the following fears and worries about his medical care: having uncontrolled pain or worsening symptoms related to his balance , becoming a physical burden and becoming a financial burden. Treatment and Care Preferences: Past experiences in dealing with family and/or friends that have or been seriously ill include friends; mother is currently in hospice. As a result of these experiences, Myke expresses these health care preferences: Myke would like to be as independent as possible. If he was in the last days of a chronic condition and unable to care for himself he would be agreeable to hospice. Summary Myke's Treatment Preferences: LOW SURVIVAL; HIGH TREATMENT BURDEN: If Myke suffered a serious complication, such that he was facing a prolonged hospital stay, required ongoing medical interventions, and the chance of living through the complication was low (for example, only 5 out of 100 would live), Myke would choose: to focus treatment on comfort and quality of life (Quality of life is more important than length of life to Myke.) If I'm not going to get well, just stop all treatment. Well for me means that I can transfer myself, can walk on my own, no help for personal hygiene - I need to be able to brush my own teeth, dress myself, comb my hair, cook for myself. HIGH SURVIVAL; LOW FUNCTIONAL STATUS: If Myke had a serious complication and had a good chance of living through the complication but it was expected that he would never be able to walk or talk again and would require 24 hour nursing care, he would choose: to focus treatment on comfort and quality of life (Quality of life is more important than length of life to Myke.) HIGH SURVIVAL; LOW COGNITIVE STATUS: If Myke had a serious complication and had a good chance of living through the complication but it was expected that he would never know who he was or who he was with and would require 24 hour nursing care, he would choose: to focus treatment on comfort and quality of life (Quality of life is more important than length of life to Myke.) CARDIO-PULMONARY RESUSCITATION (CPR): The facts, risks and benefits of CPR were discussed with Myke. If he had a sudden event that caused his heart and breathing to stop, he: WOULD want CPR attempted unless his provider determines any one of the following: he has an incurable illness or injury and is dying, he has no reasonable chance of survival if his heart stops, he has little chance of long-term survival if his heart stops and the process of resuscutation would cause significant suffering. MECHANICAL VENTILATION: If Myke had an episode where he was unable to breathe on his own, he would choose the following: attempt to use any appropriate non-invasive method to assist breathing, and use mechanical ventilation if I would get better and return to an independent level of functioning. Myke has chosen his healthcare agent to: strictly follow his wishes Follow Up Plan: Myke was encouraged to continue advance care planning discussions with his Designated Health Care Agent: son, Jake Aggarwal and primary care provider. Advance Care Planning discussion guide was given to Myke and his health care agent for review. Myke identified the following concerns during his advance care planning session: outstanding medical bills; still waiting for ruling on social security disability Questions identified for his primary care provider: address depression, hesitant about receiving treatment for hepatitis - concerns about side effects of drugs used to treat - specifically concerned about further nerve damage and immunosuppression. Documents addressed during this advance care planning session: Health Care Agents identified. Primary health care agent is Jake Aggarwal; secondary health care agent is none identified.. Health Care Directive completed and scanned into medical record. Statement of Treatment Preferences for advanced illness completed and scanned into the medical record. Recommendations/Plan: Myke and his health care agent to review Advance Care Plan. Myke would benefit from: Financial Planning-has financial social sciences professor through [employer] - Van[employer]. Social Work - [place] [employer] Care Management - Phan Cox RN, [facility] Workforce- contact: Deysi Kim Is working with compliance attorney regarding social security disability. Care Navigation brochure(s) were given to Myke and/or his healthcare agent. Advance Care Planning recommendations and Myke's concerns and questions were cc e d to his primary provider. Interviewer: PHAN COX, VERONICA .................... 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 Overview (05/07/2010): Bilateral Electrocution, accidental 05/07/2010 Allergic rhinitis, cause unspecified 04/07/2010 Right wrist pain 12/22/2009 Anxiety state, unspecified 12/22/2009 Problem situation relating to social and persona l history 12/08/2009 Abnormal ECG 11/28/2009 Hepatitis C 10/17/2009 Hypertension 10/14/2009 Pain in joint, shoulder region 10/13/2009 Knee pain, right 10/13/2009 Asthma 10/13/2009 Tobacco abuse 10/13/2009 Resolved Problems Problem Noted Date Diagnosed Date Resolved Date Medical Home 06/08/2010 11/23/2010 Overview (06/08/2010): Phan Cox RN, Antique Clocks Repairer, 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 09/14/2010 Ataxia 11/28/2009 05/07/2010 HTN (hypertension) 10/14/2009 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 Immunizations Immunization Administration Dates Next Due Influenza, IIV3 (Age >=3 years) 04/07/2010 Td (Age >=7 Years) 05/31/2009 Social History Tobacco Use Types Packs/Day Years Used Date Smoking Tobacco: Every Day Cigarettes 0.3 40 Tobacco Cessation:Ready to Q uit: No; Counseling Given: Yes Comments:4 cigs daily Alcohol Use Standard Drinks/Week Comments Yes 20 (1 standard drink = 0.6 oz pu re alcohol) Sex and Gender Information Value Date Recorded Sex Assigned at Not on file Legal Sex Male 7:24 AM BRINE ROOM LABORER Gender Identity Not on file Sexual Orientation Not on file Occupation Industry Job Start Date Job End Date unemp Not on file Not on file Not on file Obstetrics History Last Filed Vital Signs Vital Sign Reading Time Taken Comments Blood Pressure 172/94 04/22/2014 1:34 PM BRINE ROOM LABORER not taking bp med Pulse 78 04/22/2014 1:34 PM BRINE ROOM LABORER Temperature 36.4 C (97.6 F) 07/02/2010 12:08 PM BRINE ROOM LABORER Respiratory Rate - - Oxygen Saturation 95% 11/28/2009 10: 57 AM CDT Inhaled Oxygen Concentration - - Weight 67 kg (147 lb 12.8 oz) 04/22/2014 1:34 PM BRINE ROOM LABORER Height 171.5 cm (5' 7.5) 05/07/2010 1: 04 PM BRINE ROOM LABORER Body Mass Index 22.81 05/07/2010 1:04 PM BRINE ROOM LABORER Plan of Treatment Health Maintenance Due Date Last Done Comments Tdap 1968 Depression screening for age 12+ 1969 BMI (ht and wt on same day) for age 18+ 11/04/1975 Colonoscopy through age 75 2002 Lipids for age 45-75 2002 Pneumococcal series for age 50+ (1 of 1 - PCV) 11/04/2007 Zoster (shingles) series for age 50+ (1 of 2) 11/04/2007 Tetanus booster 05/31/2019 05/31/2009 COVID-19 vaccine series ( - 2023- season) 2024 Influenza Vaccine (#1) 2024 04/07/2010 RSV vaccine for adults or pr egnancy (1 - 1-dose 75+ series) 2032 Hepatitis C screening for age 18-79 Completed 11/03, 2009 Procedures Procedure Name Priority Date/Time Associated Diagnosis Comments HCV RNA QUANT Routine 2009 3:45 PM CDT Hepatitis C from Last 3 Months or Most Recently Relevant to Health Maintenance Results * (ABNORMAL) HCV RNA RT-PCR,QNT [id number] (2009 3:45 PM CDT) HCV RNA RT-PCR Detected( A) [facility] NUMBER DETECTED 237,000 IU/mL [facility] SOURCE Blood [facility] Blood specimen (specimen) BLOOD SPECIMEN / Unknown 2009 3:45 PM CDT 2009 3:38 PM CDT Narrative [facility] - 11/06/2009 3:40 PM CDT Method: Stanislav Taqman HCV Test us Jose Miguel Singh MD SEND OUTS Final Res ult [facility] [place] [address] [id number] [address] [place] [address] from Last 3 Months or Most Recently Relevant to Health Maintenance Advance Directives Documents on File Type Date Recorded Patient Controls Project Engineer Expl anation Healthcare Directive 06/15/2010 HEALTH CARE DIRECTIVE, [facility], 06/15/10 Care Teams Data Coder Operator Relationship Specialty Start Date End Date Pcp, No . PCP - General 06/07/24
--- OUTSIDE RECORDS SUMMARY | 2024-08-12 09:58 | XMS_ITS ---
Author Organization [place] Address [facility] [place] [place] [address] Care Team Providers Care Diorama Model Maker Name Role Phone Brennan Johnson Primary Care Provider Transitional Care Management Status:Closed (Closed) Start date:06/23/2024 Enrollment date:06/25/2024 End date:07/07/2024 Close reason:Goals met Continued Care and Services Coordination
[2024-08-12 10:08] VITALS: BP 128/90; PULSE 95; RESP 24; TEMP 37.1; O2SAT 95; BMI 20.8
--- NOTE | 2024-08-12 10:20 | ED_ITS ---
HPI - General Adult General Chief complaint: Extremity Pain/Injury, Lower Stated complaint: L foot injury Time Seen by Provider: 08/12/24 10:04 History of Present Illness HPI narrative: Patient is a 68-year-old gentleman with COPD who presents after stumbling at home. He injured his left great toe but did not fall. Patient states that all started when he was choking on some water. Patient states that he is back to his baseline is actually saturating 95% on room air. He is unable to bear weight on his left foot which is painful and swollen as well as bruise at the base of the 1st digit. No other problems have been noted. No chest pain he has shortness of breath is chronic. He has had no nausea no vomiting no fevers no chills no skin breakdown. Related Data Home Medications ?Medication ?Instructions ?Recorded ?Confirmed albuterol sulfate 90 mcg/actuation 2 puff inhalation Q4H PRN dyspnea 08/12/24 08/12/24 aerosol inhaler ipratropium 0.5 mg-albuterol 3 mg 1 inhalation Q6H PRN dyspnea 08/12/24 (2.5 mg base)/3 mL nebulization soln tiotropium bromide 2.5 2 puff inhalation DAILY 08/12/24 08/12/24 mcg/actuation mist for inhalation (Spiriva Respimat) Allergies Allergy/AdvReac Type Severity Reaction Status Date / Time No Known Drug Allergies Allergy Verified 08/12/24 10:04 Review of Systems Status of ROS: Reports: 10 or more systems reviewed and unremarkable except as noted in History and below PFSH PFSH Social History Smoking Status: Current every day smoker What tobacco products do you use: cigarettes Smoking packs per day: 0.25 Smoking cigarettes per day: 5.0 Years smoked: 55 Smoking pack-years: 13.75 service: No Exam Narrative: Exam Narrative: EXAM GENERAL: Patient appears comfortable and well. EYES: No scleral icterus. LYMPH: No supraclavicular or cervical lymphadenopathy. SKIN: Visible skin seen during exam normal or with benign process only. EXT: Swelling and ecchymosis noted in left great toe. HEART: Regular rate and rhythm with no murmurs, rubs, or gallops. LUNGS: Decreased breath sounds bilaterally. ABD: Soft, non tender, non distended. PSYCH: Good eye contact, speech is not pressured. Const: Vital Signs, click to edit/add: Vital Signs - 24 hr 08/12/24 10:08 Temperature 98.8 F Pulse Rate [Pulse Oximeter] 95 Respiratory Rate 24 Blood Pressure [Le ft Upper Arm] 128/90 H Pulse Oximetry 95 Oxygen Delivery Me thod Room Air Course Course ED Course: Patient seen and examined. X-ray of the left great toe ordered. Vital Signs Vital signs: Initial Vital Signs Temperature 98.8 F 08/12/24 10:08 Temperature Source Temporal Artery Scan 08/12/24 10:08 Pulse Rate 95 08/12/24 10:08 Pulse Rhythm Regular 08/12/24 10:08 Respiratory Rate 24 08/12/24 10:08 Blood Pressure 128/90 H 08/12/24 10:08 Blood Pressure Mean 102 08/12/24 10:08 Blood Pressure Position Sitting 08/12/24 10:08 Pulse Oximetry 95 08/12/24 10:08 Oxygen Delivery Method Room Air 08/12/24 10:08 Vital Signs Temperature 98.8 F 08/12/24 10:08 Pulse Rate 95 08/12/24 10:08 Respiratory Rate 24 08/12/24 10:08 Blood Pressure 128/90 H 08/12/24 10:08 Pulse Oximetry 95 08/12/24 10:08 Oxygen Delivery Method Room Air 08/12/24 10:08 Temperature 98.8 F 08/12/24 10:08 Pulse Rate 95 08/12/24 10:08 Respiratory Rate 24 08/12/24 10:08 Blood Pressure 128/90 H 08/12/24 10:08 Pulse Oximetry 95 08/12/24 10:08 Oxygen Delivery Method Room Air 08/12/24 10:08 Medical Decision Making MDM Narrative Medical decision making narrative: Patient is a 68-year-old gentleman who stumbled earlier today and has a swollen bruised left great toe. X-ray shows a proximal nondisplaced fracture. We did placement stiff shoe provided crutches. Recommend Tylenol Motrin ice and follow-up as needed. Discharge Plan Discharge Clinical Impression: Fracture of toe Patient Disposition: Home, Self-Care Condition: Stable Instructions: Toe Fracture (ED) Additional Instructions: Stiff shoe Crutches as needed Tylenol Motrin Ice Follow-up as needed. Activity Level: No Restrictions Discharge Diet: Regular Prescriptions: No Action ipratropium-albuterol 0.5 mg-3 mg(2.5 mg base)/3 mL solution for nebulization 1 INHALATION Q6H PRN (Reason: dyspnea) albuterol sulfate 90 mcg/actuation HFA aerosol inhaler 2 puff inhalation Q4H PRN (Reason: dyspnea) Spiriva Respimat 2.5 mcg/actuation mist 2 puff inhalation DAILY Follow Up/Referrals: Provider,Not a Local [Primary Care Provider] - Stand Alone Forms: [employer] Info Instructions
--- NOTE | 2024-08-12 10:20 | CRLHL7_ITS ---
For Patients: As a result of the Cures Act, medical imaging exams and procedure reports are released immediately into your electronic medical record. You may view this report before your referring provider. If you have questions, please contact your health care provider. Indication: Injury Technique: Left toe radiographs, three views Comparison: None. Findings: Bones: Nondisplaced fracture at the base of the 1st digit proximal phalanx with extension into the MTP joint. Diffuse osseous demineralization. Joint spaces: Mild 1st MTP joint osteoarthritis. Soft tissues: Soft tissue swelling of the 1st digit. Impression: Nondisplaced fracture at the base of the 1st digit proximal phalanx with extension to the MTP joint. Dictated by Cande Allen MD @ 08/12/2024 10:49:43 AM (Electronically Signed)
--- OUTSIDE RECORDS SUMMARY | 2024-08-12 10:54 | XMS_ITS ---
Author Organization [place] Address [facility] [place] [address] Care Team Providers Care Implementation Lead Name Role Phone Brennan Johnson Primary Care Provider Transitional Care Management Status:Closed (Closed) Start date:06/23/2024 Enrollment date:06/25/2024 End date:07/07/2024 Close reason:Goals met Continued Care and Services Coordination
--- OUTSIDE RECORDS SUMMARY | 2024-08-12 10:54 | XMS_ITS | Clinical Summary ---
Author Organization [place] Address [facility] access hospital0 [facility] 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 Name Role Phone [facility], [facility] Primary Care Provider Allergies No known active [...] Department Care Team Description 06/21/2024 1:15 PM SECURITY TESTER - 06/22/2024 5:18 PM SECURITY TESTER [facility] [address] [place] [address] Kartik Valencia MD Young, Juan C Franks [...] on file Legal Sex Male 3:43 AM SECURITY TESTER Gender Identity Not on file Sexual Orientation Not on file Last Filed Vital Signs Vital Sign Reading Time Taken Comments Blood Pressure 153/73 06/22/2024 3:32 PM SECURITY TESTER Pulse 102 06/22/2024 3:32 PM SECURITY TESTER Temperature 36.7 C (98 F) 06/22/2024 3:32 PM SECURITY TESTER Respiratory Rate 20 06/22/2024 3:32 PM SECURITY TESTER Oxygen Saturation 92% 06/22/2024 3:32 PM SECURITY TESTER Inhaled Oxygen Concentration - - Weight 65.4 kg (144 lb 2.9 oz) 06/22/2024 12:26 PM SECURITY TESTER Height 177.8 cm (5' 10) 06/22/2024 12:26 PM SECURITY TESTER Body Mass Index 20.69 06/22/2024 12:26 PM SECURITY TESTER Plan of Treatment Health Maintenance Due Date [...] ACID WHOLE BLOOD STAT 06/22/2024 8:27 AM SECURITY TESTER BASIC METABOLIC PANEL STAT 06/22/2024 8:27 AM SECURITY TESTER LACTIC ACID WHOLE BLOOD STAT 06/21/2024 6:01 PM SECURITY TESTER TROPONIN T, HIGH SENSITIVITY STAT 06/21/2024 3:58 PM SECURITY TESTER LACTIC ACID WHOLE BLOOD STAT 06/21/2024 3:[address] CHEST PULMONARY EMBOLISM W CONTRAST STAT 06/21/2024 3:17 PM SECURITY TESTER XR CHEST PORT 1 VIEW STAT 06/21/2024 2:18 PM SECURITY TESTER INFLUENZA A/B, RSV AND SARS-COV2 PCR STAT 06/21/2024 1:36 PM SECURITY TESTER CBC WITH PLATELETS & DIFFERENTIAL STAT 06/21/2024 1:31 PM SECURITY TESTER D DIMER QUANTITATIVE STAT 06/21/2024 1:31 PM SECURITY TESTER CBC WITH PLATELETS AND DIFFERENTIAL STAT 06/21/2024 1:31 PM SECURITY TESTER EXTRA RED TOP TUBE STAT 06/21/2024 1: 31 PM SECURITY TESTER EXTRA BLUE TOP TUBE STAT 06/21/2024 1 :31 PM SECURITY TESTER NT PROBNP INPATIENT STAT 06/21/2024 1 :31 PM SECURITY TESTER BLOOD GAS VENOUS STAT 06/21/2024 1:31 PM SECURITY TESTER TROPONIN T, HIGH SENSITIVITY STAT 06/21/2024 1:31 PM SECURITY TESTER LACTIC ACID WHOLE BLOOD WITH 1X REPEAT IN 2 HR WHEN >2 STAT 06/21/2024 1:31 PM SECURITY TESTER COMPREHENSIVE METABOLIC PANEL STAT 06/21/2024 1:31 PM SECURITY TESTER EXTRA TUBE STAT 06/21/2024 1:31 PM SECURITY TESTER EKG 12-LEAD, TRACING ONLY STAT 06/21/2024 1:24 PM SECURITY TESTER EKG CARDIAC - HIM SCAN 12:00 AM SECURITY TESTER LIPID REFLEX TO DIRECT LDL PANEL Routine 07/18/2023 7:26 AM SECURITY TESTER from Last 3 Months or Most Recently Relevant to Health Maintenance Results * Lactic acid whole blood (06/22/2024 8:27 AM SECURITY TESTER) Only the most recent of3 resultswithin the time period is included. Lactic Acid 1.9 0.7 - 2.0 mmol/L 06/22/2024 8:35 AM SECURITY TESTER LABORATORY Blood STRUCTURE OF LEFT HAND / Unknown Venipuncture / Unknown 06/22/2024 8:27 AM SECURITY TESTER 06/22/2024 8:33 AM SECURITY TESTER us Monica Guy MD LAB - BLOOD ORDERABLES Final Res ult LABORATORY [facility] [address] Lab (1st floor, no room number) [place] [address] * (ABNORMAL) Basic metabolic panel (06/22/2024 8:27 AM SECURITY TESTER) Sodium 133(L) 135 - 145 mmol/L 06/22/2024 9:14 AM SECURITY TESTER LABORATORY Potassium 4.1 3.4 - 5.3 mmol/L 06/22/2024 9:14 AM SECURITY TESTER LABORATORY Chloride 103 98 - 107 mmol/L 06/22/2024 9:14 AM SECURITY TESTER LABORATORY Carbon Dioxide (CO2) 19(L) 22 - 29 mmol/L 06/22/2024 9:14 AM SECURITY TESTER LABORATORY Anion Gap 11 7 - 15 mmol/L 06/22/2024 9:14 AM SECURITY TESTER LABORATORY Urea Nitrogen 11.0 8.0 - 23.0 mg/dL 06/22/2024 9:14 AM SECURITY TESTER LABORATORY Creatinine 0.68 0.67 - 1.17 mg/dL 06/22/2024 9:14 AM SECURITY TESTER LABORATORY GFR Estimate >90 >60 mL/min/1.7 3m2 06/22/2024 9:14 AM SECURITY TESTER LABORATORY Comment:eGFR calculated usin 2020 CKD-EPI equation. Calcium 8.6(L) 8.8 - 10.4 mg/dL 06/22/2024 9:14 AM SECURITY TESTER LABORATORY Comment:Reference intervals for this test were updated on 12/13/2023 to reflect our healthy population more accurately. There may be differences in the flagging of prior results with similar values performed with this method. Those prior results can be interpreted in the context of the updated reference intervals. Glucose 112(H) 70 - 99 mg/dL 06/22/2024 9:14 AM SECURITY TESTER LABORATORY Blood STRUCTURE OF LEFT HAND / Unknown Venipuncture / Unknown 06/22/2024 8:27 AM SECURITY TESTER 06/22/2024 8:33 AM SECURITY TESTER Мария Woods PA-C LAB - BLOOD ORDERABLES F inal Result LABORATORY [facility] Lab [address] Lab (1st floor, no room number) [place] [address], [facility] * Troponin T, High Sensitivity (06/21/2024 3:58 PM SECURITY TESTER) Only the most recent of2 resultswithin the time period is included. Pathologist [facility] Troponin T, High Sensitivity 8 <=22 ng/L 06/21/2024 4:34 PM SECURITY TESTER LABORATORY Comment: Either a High Sensitivity Troponin [...] Unknown Venipuncture / Unknown 06/21/2024 3:58 PM SECURITY TESTER 06/21/2024 4:10 PM SECURITY TESTER us Kartik Valencia MD LAB - BLOOD ORDERABLES Final Result [facility] Acute Care Lab [address] Lab (1st floor, no room number) [place] [address], [facility] * CT Chest Pulmonary Embolism w Contrast (06/21/2024 3:17 PM SECURITY TESTER) Anatomical Region Laterality Modality Chest, SUBRAD CT BODY, UMP CT CHEST Computed Tomography 06/21/2024 3:17 PM SECURITY TESTER Impressions 06/21/2024 3:41 PM SECURITY TESTER IMPRESSION: 1. No pulmonary artery embolism. 2. Mild emphysema and mild bronchiolitis. No pneumonic infiltrate or pleural effusion. 3. Cirrhosis and upper abdominal varices likely reflecting sequelae of portal venous hypertension. 4. Cholelithiasis. Narrative 06/21/2024 3:41 PM SECURITY TESTER EXAM: CT CHEST PULMONARY EMBOLISM W CONTRAST LOCATION: [facility] DATE: 06/21/2024 INDICATION: SOB, elevated dimer, eval [...] CT CHEST PULMONARY EMBOLISM W CONTRAST LOCATION: [facility] DATE: 06/21/2024 INDICATION: SOB, elevated dimer, eval [...] bronchial wallthickening and endobronchial mucus impaction. Minimal [id number]. Mild upper lobar predominant emphysema. No pneumonicconsolidation [...] Chest Port 1 View (06/21/2024 2:18 PM SECURITY TESTER) Anatomical Region Laterality Modality Chest Digital Radiogra phy 06/21/2024 2:18 PM SECURITY TESTER Impressions 06/21/2024 2:25 PM SECURITY TESTER IMPRESSION: No focal airspace opacities, pleural effusion or pneumothorax. Normal heart size. Hyperinflated lungs. Stable small metallic fragment in the right chest wall. Narrative 06/21/2024 2:25 PM SECURITY TESTER EXAM: XR CHEST PORT 1 VIEW LOCATION: [facility] DATE: 06/21/2024 INDICATION: SOB COMPARISON: 07/17/2023 Procedure Note Rekha Moseley MD - 06/21/2024 EXAM: XR CHEST PORT 1 VIEW LOCATION: [facility] DATE: 06/21/2024 INDICATION: SOB COMPARISON: 07/17/2023 IMPRESSION: No focal airspace opacities, pleural effusion or pneumothorax.Normal heart size. Hyperinflated lungs. Stable small metallic fragment inthe right chest wall. us Kartik Valencia MD IM DIAGNOSTIC IMAGING ORDER TELLY Final Result * Influenza A/B, RSV and SARS-CoV2 PCR (COVID-19) Nasopharyngeal (06/21/2024 1:36 PM SECURITY TESTER) Influenza A PCR Negative Negative 06/21/2024 2:29 PM SECURITY TESTER LABORATORY Influenza B PCR Negative Negative 06/21/2024 2:29 PM SECURITY TESTER LABORATORY RSV PCR Negative Negative 06/21/2024 2:29 PM SECURITY TESTER LABORATORY SARS CoV2 PCR Negative Negative 06/21/2024 2:29 PM SECURITY TESTER LABORATORY Comment:NEGATIVE: SARS-CoV-2 (COVID-19) RNA not detected, presumed negative. Swab NASOPHARYNGEAL STRUCTURE / Unknown Non-blood Collection / Unknown 06/21/2024 1:36 PM SECURITY TESTER 06/21/2024 1:41 PM SECURITY TESTER [facility] LABORATORY - 06/21/2024 2:29 PM SECURITY TESTER Testing was performed using the Xpert Xpress CoV2/Flu/RSV Assay on the [employer] GeneXpert Instrument. This test should be ordered [...] management. This test was validated by the [facility]. These laboratories are certified under the Clinical Laboratory Improvement Amendments of 1988 (CLIA-88) as qualified to perfom high complexity laboratory testing. Kartik Valencia MD LAB - MICRO GENERAL ORDERABL ES Final Result [facility] Lab [address] Lab (1st floor, no room number) [place] [address], [facility] * Extra Red Top Tube (06/21/2024 1:31 PM SECURITY TESTER) Hold Specimen [facility] 06/21/2024 2:46 PM SECURITY TESTER RH LABORATORY Blood BLOOD SPECIMEN / Unknown Venipuncture / Unknown 06/21/2024 1:31 PM SECURITY TESTER 06/21/2024 1:42 PM SECURITY TESTER Buck Gutiérrez MD LAB - BLOOD ORDERABLES Final Result Performing Organization Address City/[facility]/ZIP Co de Phone Number [facility] Lab [address] Lab (1st floor, no room number) [place] [address], [facility] * Extra Blue Top Tube (06/21/2024 1:31 PM SECURITY TESTER) Hold Specimen [facility] 06/21/2024 2:46 PM SECURITY TESTER LABORATORY Blood BLOOD SPECIMEN / Unknown Venipuncture / Unknown 06/21/2024 1:31 PM SECURITY TESTER 06/21/2024 1:42 PM SECURITY TESTER Buck Gutiérrez MD LAB - BLOOD ORDERABLES Final Result [facility] Lab [address] Lab (1st floor, no room number) [place] [address], [facility] * (ABNORMAL) Lactic acid whole blood with 1x repeat in 2 hr when >2 (06/21/2024 1:31 PM SECURITY TESTER) Pathologist [facility] Lactic Acid, Initial 3.6(H) 0.7 - 2.0 mmol/L 06/21/2024 1:49 PM SECURITY TESTER RH LABORATORY Blood BLOOD SPECIMEN / Unknown Venipuncture / Unknown 06/21/2024 1:31 PM SECURITY TESTER 06/21/2024 1:41 PM SECURITY TESTER us Kartik Valencia MD LAB - BLOOD ORDERABLES Final Result RH LABORATORY [facility] [address] Lab (1st floor, no room number) [place] [address] * (ABNORMAL) CBC with platelets and differential (06/21/2024 1:31 PM SECURITY TESTER) [facility] WBC Count 5.2 4.0 - 11.0 10e3/uL 06/21/2024 2:04 PM SECURITY TESTER RH LABORATORY RBC Count 4.91 4.40 - 5.90 10e6/uL 06/21/2024 2:04 PM SECURITY TESTER RH LABORATORY Hemoglobin 15.1 13.3 - 17.7 g/dL 06/21/2024 2:04 PM SECURITY TESTER RH LABORATORY Hematocrit 44.6 40.0 - 53.0 % 06/21/2024 2:04 PM SECURITY TESTER RH LABORATORY MCV 91 78 - 100 fL 06/21/2024 2:04 PM SECURITY TESTER RH LABORATORY MCH 30.8 26.5 - 33.0 pg 06/21/2024 2:04 PM SECURITY TESTER RH LABORATORY MCHC 33.9 31.5 - 36.5 g/dL 06/21/2024 2:04 PM SECURITY TESTER RH LABORATORY RDW 15.7(H) 10.0 - 15.0 % 06/21/2024 2:04 PM SECURITY TESTER RH LABORATORY Platelet Count 137(L) 150 - 450 10e3/uL 06/21/2024 2:04 PM SECURITY TESTER RH LABORATORY % Neutrophils 44 % 06/21/2024 2:04 PM SECURITY TESTER RH LABORATORY % Lymphocytes 24 % 06/21/2024 2:04 PM SECURITY TESTER RH LABORATORY % Monocytes 14 % 06/21/2024 2:04 PM SECURITY TESTER [facility] LABORATORY % Eosinophils 15 % 06/21/2024 2:04 PM SECURITY TESTER RH LABORATORY % Basophils 3 % 06/21/2024 2:04 PM SECURITY TESTER RH LABORATORY % Immature Granulocytes 0 % 06/21/2024 2:04 PM SECURITY TESTER RH LABORATORY NRBCs per 100 WBC 0 <1 /100 025 2:04 PM SECURITY TESTER RH LABORATORY Absolute Neutrophils 2.3 1.6 - 8.3 10e3/uL 06/21/2024 2:04 PM SECURITY TESTER RH LABORATORY Absolute Lymphocytes 1.2 0.8 - 5.3 10e3/uL 06/21/2024 2:04 PM SECURITY TESTER RH LABORATORY Absolute Monocytes 0.7 0.0 - 1.3 10e3/uL 06/21/2024 2:04 PM SECURITY TESTER RH LABORATORY Absolute Eosinophils 0.8(H) 0.0 - 0.7 10e3/uL 06/21/2024 2:04 PM SECURITY TESTER RH LABORATORY Absolute Basophils 0.1 0.0 - 0.2 10e3/uL 06/21/2024 2:04 PM SECURITY TESTER [facility] LABORATORY Absolute Immature Granulocytes 0.0 <=0.4 10e3/uL 06/21/2024 2:04 PM SECURITY TESTER [facility] LABORATORY Absolute NRBCs 0.0 10e3/uL 06/21/2024 2:04 PM SECURITY TESTER [facility] LABORATORY Blood BLOOD SPECIMEN / Unknown Venipuncture / Unknown 06/21/2024 1:31 PM SECURITY TESTER 06/21/2024 1:42 PM SECURITY TESTER us Kartik Valencia MD LAB - BLOOD ORDERABLES Final Result RH LABORATORY [facility] [address] Lab (1st floor, no room number) [place] [address], [facility] * Nt probnp inpatient (BNP) (06/21/2024 1:31 PM SECURITY TESTER) [facility] N terminal Pro BNP Inpatient 56 0 - 900 pg/mL 06/21/2024 2:45 PM SECURITY TESTER [facility] LABORATORY Comment: Reference range shown and [...] Unknown Venipuncture / Unknown 06/21/2024 1:31 PM SECURITY TESTER 06/21/2024 1:42 PM SECURITY TESTER us Kartik Valencia MD LAB - BLOOD ORDERABLES Final Result RH LABORATORY [facility] Lab [address] [facility] Lab (1st floor, no room number) [place] [address] * (ABNORMAL) D dimer quantitative (06/21/2024 1:31 PM SECURITY TESTER) [facility] D-Dimer Quantitative 1.06(H) 0.00 - 0.50 ug/mL FEU 06/21/2024 2:26 PM SECURITY TESTER RH LABORATORY Blood BLOOD SPECIMEN / Unknown Venipuncture / Unknown 06/21/2024 1:31 PM SECURITY TESTER 06/21/2024 1:42 PM SECURITY TESTER Narrative LABORATORY - 06/21/2024 2:26 PM SECURITY TESTER This D-dimer assay is intended for use [...] out pulmonary embolism: The ADJUST-PE Study. DEANNA 2014;311:8043-0969.; HJ Kin et al. Diagnostic accuracy of conventional or age adjusted D-dimer cutoff values in older patients with suspected venous thromboembolism. Systemic review and meta-analysis. BMJ 2013:346:f2492. us Kartik Valencia MD LAB - BLOOD ORDERABLES Final Result RH LABORATORY [facility] Lab [address] Lab (1st floor, no room number) [place] [address], [facility] * (ABNORMAL) Comprehensive metabolic panel (06/21/2024 1:31 PM SECURITY TESTER) Sodium 138 135 - 145 mmol/L 06/21/2024 2:08 PM [facility] LABORATORY Potassium 3.9 3.4 - 5.3 mmol/L 06/21/2024 2:08 PM [facility] LABOR[facility] Carbon Dioxide (CO2) 21(L) 22 - 29 mmol/L 06/21/2024 2:08 PM [facility] LAB[facility] Anion Gap 14 7 - 15 mmol/L 06/21/2024 2:08 PM [facility] Urea Nitrogen 8.1 8.0 - 23.0 mg/dL 06/21/2024 2:08 PM [facility] Creatinine 0.79 0.67 - 1.17 mg/dL 06/21/2024 2:08 PM [facility] LAB[facility] GFR Estimate >90 >60 mL/min/1.7 3m2 06/21/2024 2:08 PM [facility] LAB[facility] Comment:eGFR calculated us2020 CKD-EPI equation. Calcium 8.7(L) 8.8 - 10.4 mg/dL 06/21/2024 2:08 PM [facility] LABOR[facility] Comment:Reference intervals for this test were updated on 12/13/2023 to reflect our healthy population more accurately. There may be differences in the flagging of prior results with similar values performed with this method. Those prior results can be interpreted in the context of the updated reference intervals. Chloride 103 98 - 107 mmol/L 06/21/2024 2:08 PM [facility] LAB[facility] Glucose 106(H) 70 - 99 mg/dL 06/21/2024 2:08 PM SECURITY TESTER RH LABORATORY Alkaline Phosphatase 134 40 - 150 U/L 06/21/2024 2:08 PM SECURITY TESTER RH LABORATORY AST 71(H) 0 - 45 U/L 06/21/2024 2:08 PM SECURITY TESTER RH LABORATORY ALT 42 0 - 70 U/L 06/21/2024 2:08 PM SECURITY TESTER RH LABORATORY Protein Total 7.5 6.4 - 8.3 g/dL 06/21/2024 2:08 PM SECURITY TESTER RH LABORATORY Albumin 3.7 3.5 - 5.2 g/dL 06/21/2024 2:08 PM SECURITY TESTER [facility] LABORATORY Bilirubin Total 1.7(H) <=1.2 mg/dL 06/21/2024 2:08 PM SECURITY TESTER RH LABORATORY Blood BLOOD SPECIMEN / Unknown Venipuncture / Unknown 06/21/2024 1:31 PM SECURITY TESTER 06/21/2024 1:42 PM SECURITY TESTER us Kartik Valencia MD LAB - BLOOD ORDERABLES Final Result RH LABORATORY [facility] Lab [address] Lab (1st floor, no room number) [place] [address], [facility] * (ABNORMAL) Blood gas venous (06/21/2024 1:31 PM SECURITY TESTER) pH Venous 7.46(H) 7.32 - 7.43 06/21/2024 1:48 PM SECURITY TESTER [facility] LABORATORY pCO2 Venous 34(L) 40 - 50 mm Hg 06/21/2024 1:48 PM SECURITY TESTER [facility] LABORATORY pO2 Venous 44 25 - 47 mm Hg 06/21/2024 1:48 PM SECURITY TESTER [facility] LABORATORY Bicarbonate Venous 24 21 - 28 mmol/L 06/21/2024 1:48 PM SECURITY TESTER [facility] LABORATORY Base Excess/Deficit Venous 0.7 -3.0 - 3.0 mmol/L 06/21/2024 1:48 PM SECURITY TESTER [facility] LABORATORY FIO2 21 VIRGEN 06/21/2024 1:48 PM SECURITY TESTER [facility] LABORATORY Oxyhemoglobin Venous 78(H) 70 - 75 % 06/21/2024 1:48 PM SECURITY TESTER [facility] LABORATORY O2 Sat, Venous 79.5(H) 70.0 - 75.0 % 06/21/2024 1:48 PM SECURITY TESTER [facility] LABORATORY Blood, venous BLOOD SPECIMEN / Unknown Venipuncture / Unknown 06/21/2024 1:31 PM SECURITY TESTER 06/21/2024 1:41 PM SECURITY TESTER Narrative [facility] LABORATORY - 06/21/2024 1:48 PM SECURITY TESTER In healthy individuals, oxyhemoglobin (O2Hb) and oxygen saturation (SO2) are approximately equal. In the presence of dyshemoglobins, oxyhemoglobin can be considerably lower than oxygen saturation. us Kartik Valencia MD LAB - BLOOD ORDERABLES Final Result LABORATORY [facility] Lab [address] [facility] Lab (1st floor, no room number) [place] [address] * EKG 12-lead, tracing only (06/21/2024 1:24 PM SECURITY TESTER) Systolic Blood Pressure mmHg RADIOLOGY RESULTS Diastolic Blood Pressure mmHg RADIOLOGY RESULTS Ventricular Rate 95 BPM RAD IOLOGY RESULTS Atrial Rate 95 BPM RADIOLOG Y RESULTS WY Interval 160 ms RADIOLOG Y RESULTS QRS Duration 72 ms RADIOLO GY RESULTS QT 352 ms RADIOLOGY RESULTS QTc 442 ms RADIOLOGY RESULTS P Arma 64 degrees RADIOLOGY RESULTS R AXIS 44 degrees RADIOLOGY RESULTS T Arma 78 degrees RADIOLOGY RESULTS Interpretation ECG Sinus rhythm Septal infarct (cited on or before 17-Jul-2023) Abnormal ECG When compared with ECG of 17-Jul-2023 10:13, No significant change was found Unconfirmed report - interpretation of this ECG is computer generated - see medical record for final interpretation Confirmed by - EMERGENCY ROOM, PHYSICIAN ([id number]), commercial production editor Natanael Brandon ([id number]) on 06/21/2024 1:36:53 PM RADIOLOGY RESULTS 06/21/2024 1:24 PM SECURITY TESTER 06/21/2024 1:36 PM SECURITY TESTER us Buck Gutiérrez MD ECG ORDERABLES Edited Result - Final RADIOLOGY RESULTS * EKG Cardiac - HIM Scan (06/21/2024 12:00 AM SECURITY TESTER) 06/21/2024 us Provider Outside ECG ORDERABLES Final Result * Lipid panel reflex to direct LDL (07/18/2023 7:26 AM SECURITY TESTER) Cholesterol 108 <200 mg/dL 07/18/2023 11:34 AM SECURITY TESTER [facility] Triglycerides 31 <150 mg/dL 07/18/2023 11:34 AM SECURITY TESTER [facility] Direct Measure HDL 57 >=40 mg/dL 07/18/2023 11:34 AM SECURITY TESTER [facility] LDL Cholesterol Calculated 45 <=100 mg/dL 07/18/2023 11:34 AM SECURITY TESTER [facility] Non HDL Cholesterol 51 <130 mg/dL 07/18/2023 11:34 AM SECURITY TESTER [facility] Patient Fasting > 8hrs? Unknown 07/18/2023 11:34 AM SECURITY TESTER [facility] LAB[facility]ATORY Blood STRUCTURE OF RIGHT UPPER LIMB / Unknown Venipuncture / Unknown 07/18/2023 7:26 AM SECURITY TESTER 07/18/2023 7:31 AM SECURITY TESTER Narrative [facility] - 07/18/2023 11:34 AM SECURITY TESTER Cholesterol Desirable: <200 mg/dL Triglycerides Normal: Less [...] BLOOD ORDERABLES F inal Result [facility] LAB[facility]AT[facility] [address] [facility] [address], [address] [place] [address], [facility] [phone] [facility] Lab [address] Lab (1st floor, no room number) [place] [address], [facility] [phone] from Last 3 Months or Most Recently Relevant to Health Maintenance Insurance MEDICARE MEDICARE MEDICARE MEDICARE * Guarantor: [id number] Account Type Relation to Patient Date of Phone Billing Address Worker's Compensation Employer [phone] (Home) [address] [place] [address] OTHER Member Subscriber Plan / Payer (Ef fective 2005-Present) Name:Myke Aggarwal J Relation to Subscriber:Employee Name:[id number] Subscriber ID:[id number] Date of :1955 x35 (Home) Address: [address] [address] Payer ID:[id number] Type:Not on file Address: [address] [place] [address] Advance Directives For more information, please contact: [phone] * Full Code (Latest Code Status on [...] alhajie nt/ legal decision maker Care Teams Wood Ski Maker Relationship Specialty Start Date End Date [facility], [address] [address] PCP - General 06/21/24
--- OUTSIDE RECORDS SUMMARY | 2024-08-12 10:54 | XMS_ITS | Clinical Summary ---
Author Organization [employer] [facility] Address [address] [place] [address] Care Team Providers Care Cement Loader Name Role Phone Pcp, No Primary Care [...] Team: Raimundo House as PCP - General [phone] Phan Cox RN, Senior Investigator [phone] Vania Nicholas Engineer Chief [phone]- address: [facility] Carpet Or Rug Layer Helper, [address] [place] [id number] Bharti strip feeder at commercial attorney office [phone] And Jc [phone] Singh [phone]-[facility] Neurology Dr. Curiel - [facility] neurology clinic [phone], fax [phone], billing [phone] Silva Starks, Adult Protection adult protective caseworker [phone](direct) Social Service main # [phone] address is [address] [place] [address]. My Care Plan Problem: Under excess stress due to unemployment and awaiting social security disability Goal: System or plan in place to reduce stress Plan: Contact Vania Mack social insurance specialist Responsibility: Myke and critical care physician assistantPhan Target Date: 06/22/2010 Achieved Date: Date and Name of Farmer [employer]: PHAN COX RN .................... 06/08/2010 3:03 PM Problem: Unable to afford medical care or medications Goal: Able to afford medical care or medications Plan: Contact [facility] social insurance specialist, Vania Mack, set up appointment with Dr. Singh for F/U on Jul 06, 2010 Go to [facility] billing dept, discuss financial situation and negotiate a plan. Responsibility: Patient Target Date: 06/29/2010 Achieved Date: 08/19/2010 Date and Name of Farmer [employer]: PHAN COX RN .................... 06/15/2010 3:03 PM Problem: In unhappy or unsafe residential situation Goal: System or plan in place to improve residential situation Plan: Contact social insurance specialistVania at [employer] contact Silva [facility]arks [facility] [phone] Responsibility: Myke and critical care physician assistantPhan; Myke to contact Silva 09/03/10 9:45 am Target Date: 09/03/10 Discussed case with adult protection worker, Silva Starks. She will try to contact patient by letter. She also asks that when patient comes into clinic on September 03 at 9:45 am for F/U that Myke call her at [phone] to speak with her.PHAN COX RN .................... 08/03/2010 4:34 PM Achieved Date: Date and Name of Farmer [employer]: PHAN COX RN .................... 06/08/2010 3:03 PM Problem: Does not have Advance Care Plan in place Goal: Advance Care Plan on file Plan: Complete Health Care Directive Responsibility: Myke and critical care physician assistantPhan Target Date: 08/26/2010 Achieved Date: 06/15/2010 Date and Name of Farmer [employer]: PHAN COX RN .................... 06/08/2010 3:03 PM My Emergency Plan Medical - [facility] [phone] My Care Team Patient Care Team: Raimundo House as PCP - General [phone] Phan Cox RN- critical care physician assistant [phone] My Care Plan Problem: Blood pressure too [...] Achieved Date: 06/15/2010 Date and Name of Farmer [employer]: PHAN COX RN .................... 06/08/2010 3:08 PM Problem: Meal Planning Goal: Understands low sodium diet Plan: Discuss knowledge of low Na+ diet Responsibility: Myke and critical care physician assistantmanager social Date: 06/08/2010 Achieved Date: 06/08/2010 Date and Name of Farmer [employer]: PHAN COX RN .................... 06/08/2010 3:08 PM Date and Name of Farmer [employer]: PHAN COX RN .................... 06/08/2010 3:08 PM Call Raimundo House MD at [phone] If Blood Pressure is 180/100 or greater. [...] limbs. Assessment & Plan (06/15/2010 2:53 PM ADJUNCT PHLEBOTOMY INSTRUCTOR): Advance Care Planning: Disease-specific Session Myke Aggarwal is a Medical Home patient at [facility]. Advance care planning discussions were completed with Myke. Initially Myke did not wish to designate a health [...] about this. Understanding of Illness and Disease [place]: Myke identifies his medical condition as depressing [...] real social. I'd like to back to [employer]. Quality of Life: The following [...] would benefit from: Financial Planning-has financial social insurance specialist through [employer] - Vania [employer]. Social Work - [employer] Care Management - Phan Cox RN, [facility] Workforce- contact: Deysi Kim Is working with commercial attorney regarding social security disability. 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 Ataxia 11/28/2009 05/07/2010 [...] on file Legal Sex Male 7:24 AM ADJUNCT PHLEBOTOMY INSTRUCTOR Gender Identity Not on file Sexual Orientation Not on file Occupation Industry Job Start Date Job End Date unemp Not on file Not on file Not on file Obstetrics History Last Filed Vital Signs Vital Sign Reading Time Taken Comments Blood Pressure 172/94 04/22/2014 1:34 PM ADJUNCT PHLEBOTOMY INSTRUCTOR not taking bp med Pulse 78 04/22/2014 1:34 PM ADJUNCT PHLEBOTOMY INSTRUCTOR Temperature 36.4 C (97.6 F) 07/02/2010 12:08 PM ADJUNCT PHLEBOTOMY INSTRUCTOR Respiratory Rate - - Oxygen Saturation 95% 11/28/2009 10: 57 AM CDT Inhaled Oxygen Concentration - - Weight 67 kg (147 lb 12.8 oz) 04/22/2014 1:34 PM ADJUNCT PHLEBOTOMY INSTRUCTOR Height 171.5 cm (5' 7.5) 05/07/2010 1: 04 PM ADJUNCT PHLEBOTOMY INSTRUCTOR Body Mass Index 22.81 05/07/2010 1:04 PM ADJUNCT PHLEBOTOMY INSTRUCTOR Plan of Treatment Health Maintenance Due Date [...] Maintenance Results * (ABNORMAL) HCV RNA RT-PCR,QNT [id number] (2009 3:45 PM CDT) HCV RNA RT-PCR Detected( A) [facility] NUMBER DETECTED 237,000 IU/mL [facility] SOURCE Blood [facility] Blood specimen (specimen) BLOOD SPECIMEN / Unknown 2009 3:45 PM CDT 2009 3:38 PM CDT Narrative [facility] - 11/06/2009 3:40 PM CDT Method: Stanislav Taqman HCV Test us Jose Miguel Singh MD SEND OUTS Final Res ult [facility] INTERNAL ZIP [id number] [address] [place] [address] from Last 3 Months or Most Recently Relevant to Health Maintenance Advance Directives Documents on File Type Date Recorded 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 PCP - General 06/07/24
== END 2024-08-12 11:08 | disposition home or self-care (01) ==
PROVIDERS: Emergency Provider Internal Medicine
DX: S92.415A Nondisplaced fracture of proximal phalanx of left great toe, initial encounter for closed fracture (principal); W01.0XXA Fall on same level from slipping, tripping and stumbling without subsequent striking against object, initial encounter
CPT/HCPCS: 73660; 99283

== ENCOUNTER 2024-09-19 08:34 | Emergency (ER) | payer MEDICARE, SELFPAY ==
--- OUTSIDE RECORDS SUMMARY | 2024-09-19 08:37 | XMS_ITS | Clinical Summary ---
Author Organization [employer] [facility] Address [address] [place] [address] Care Team Providers Care Plate Inspector Name Role Phone Pcp, No Primary Care Provider Unavailabl e Allergies Active Allergy Reactions Criticality Noted Date Comments Carbidopa-Levodopa Palpitations 10/13/2009 Medications albuterol HFA (PROAIR HFA) 90 mcg/actuation inhalerIndicatio ns:Asthma (HC) Inhale 1-2 Puffs by mouth every 4 hours while awake. 1 Inhaler 3 09/13/2011 Active Active Problems Patient Care Coordination No te Formatting of this note migh t be different from the original. My Care Team Patient Care Team: Raimundo House as PCP - General [phone] Phan Cox RN, Sports Analyst [phone] Vania Stanton MiLucas Child Life Specialist [phone]- address: [facility] [employer], [address] [address] Bharti miller helper distillery at business attorney office [phone] And Jc [phone] Singh [phone]-[facility] Neurology Dr. Curiel - [facility] neurology clinic [phone], fax [phone], billing [phone] Silva Starks, Adult Protection cyanide case hardener [phone](direct) [employer] Service main # [phone] address is [address] [place], [place]. My Care Plan Problem: Under excess stress due to unemployment and awaiting social security disability Goal: System or plan in place to reduce stress Plan: Contact Vania Mack social contact worker Responsibility: Myke and childcare aidePahn Target Date: 06/22/2010 Achieved Date: Date and Name of Adjunct Trainer: PHAN COX RN .................... 06/08/2010 3:03 PM Problem: Unable to afford medical care or medications Goal: Able to afford medical care or medications Plan: Contact [facility] social contact worker, Vania Mack, set up appointment with Dr. Singh for F/U on Jul 06, 2010 Go to [facility] billing dept, discuss financial situation and negotiate a plan. Responsibility: Patient Target Date: 06/29/2010 Achieved Date: 08/19/2010 Date and Name of Adjunct Trainer: PHAN COX RN .................... 06/15/2010 3:03 PM Problem: In unhappy or unsafe residential situation Goal: System or plan in place to improve residential situation Plan: Contact social contact workerVania at [employer] contact Silva Starks [facility] [phone] Responsibility: Myke and childcare aidePhan; Myke to contact Silva 09/03/10 9:45 am Target Date: 09/03/10 Discussed case with adult protection worker, Silva Starks. She will try to contact patient by letter. She also asks that when patient comes into clinic on September 03 at 9:45 am for F/U that Myke call her at [phone] to speak with her.PHAN COX RN .................... 08/03/2010 4:34 PM Achieved Date: Date and Name of Adjunct Trainer: PHAN COX RN .................... 06/08/2010 3:03 PM Problem: Does not have Advance Care Plan in place Goal: Advance Care Plan on file Plan: Complete Health Care Directive Responsibility: Myke and childcare aidePhan Target Date: 08/26/2010 Achieved Date: 06/15/2010 Date and Name of Adjunct Trainer: PHAN COX RN .................... 06/08/2010 3:03 PM My Emergency Plan Medical - [facility] [phone] My Care Team Patient Care Team: Raimundo House as PCP - General [phone] Phan Cox RN- childcare aide [phone] My Care Plan Problem: Blood pressure too [...] Achieved Date: 06/15/2010 Date and Name of Adjunct Trainer: PHAN COX RN .................... 06/08/2010 3:08 PM Problem: Meal Planning Goal: Understands low sodium diet Plan: Discuss knowledge of low Na+ diet Responsibility: Myke and childcare aidesolar manager Date: 06/08/2010 Achieved Date: 06/08/2010 Date and Name of Adjunct Trainer: PHAN COX RN .................... 06/08/2010 3:08 PM Date and Name of Adjunct Trainer: PHAN COX RN .................... 06/08/2010 3:08 PM Call Raimundo House MD at [phone] If Blood Pressure is 180/100 or greater. [...] limbs. Assessment & Plan (06/15/2010 2:53 PM PHYTOPATHOLOGIST): Advance Care Planning: Disease-specific Session Myke Aggarwal is a Medical Home patient at [facility]. Advance care planning discussions were completed [...] about this. Understanding of Illness and Disease [place]: Myke identifies his medical condition as depressing [...] real social. I'd like to back to [employer]. Quality of Life: The following [...] would benefit from: Financial Planning-has financial social contact worker through [employer] - Vania Soria. Social Work - [employer] Vania Soria Care Management - Phan Cox RN, [facility] Workforce- contact: Deysi Kim Is working with business attorney regarding social security disability. 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 09/14/2010 Ataxia 11/28/2009 05/07/2010 [...] on file Legal Sex Male 7:24 AM PHYTOPATHOLOGIST Gender Identity Not on file Sexual Orientation Not on file Occupation Industry Job Start Date Job End Date unemp Not on file Not on file Not on file Obstetrics History Last Filed Vital Signs Vital Sign Reading Time Taken Comments Blood Pressure 172/94 04/22/2014 1:34 PM PHYTOPATHOLOGIST not taking bp med Pulse 78 04/22/2014 1:34 PM PHYTOPATHOLOGIST Temperature 36.4 C (97.6 F) 07/02/2010 12:08 PM PHYTOPATHOLOGIST Respiratory Rate - - Oxygen Saturation 95% 11/28/2009 10: 57 AM CDT Inhaled Oxygen Concentration - - Weight 67 kg (147 lb 12.8 oz) 04/22/2014 1:34 PM PHYTOPATHOLOGIST Height 171.5 cm (5' 7.5) 05/07/2010 1: 04 PM PHYTOPATHOLOGIST Body Mass Index 22.81 05/07/2010 1:04 PM PHYTOPATHOLOGIST Plan of Treatment Health Maintenance Due Date [...] ( - 2023- season) 2024 Influenza Vaccine (Season Ended) 2025 04/07/20 10 RSV vaccine for adults or pr egnancy (1 - 1-dose 75+ series) 2032 Hepatitis C screening for age 18-79 Completed 11/03, 2009 Procedures Procedure Name Priority Date/Time Associated Diagnosis Comments HCV RNA QUANT Routine 2009 3:45 PM CDT Hepatitis C from Last 3 Months or Most Recently Relevant to Health Maintenance Results * (ABNORMAL) HCV RNA RT-PCR,QNT [id number] (2009 3:45 PM CDT) HCV RNA RT-PCR Detected( A) [facility] NUMBER DETECTED 237,000 IU/mL [facility] SOURCE Blood [facility] Blood specimen (specimen) BLOOD SPECIMEN / Unknown 2009 3:45 PM CDT 2009 3:38 PM CDT Narrative [facility] - 11/06/2009 3:40 PM CDT Method: Stanislav Taqman HCV Test us Jose Miguel Singh MD SEND OUTS Final Res ult [facility] INTERNAL ZIP [id number] [place] [address] from Last 3 Months or Most Recently Relevant to Health Maintenance Advance Directives Documents on File Type Date Recorded Patient Cheese Sprayer Expl anation Healthcare Directive 06/15/2010 HEALTH CARE DIRECTIVE, [facility], 06/15/10 Care Teams Plate Inspector Relationship Specialty Start Date End Date Pcp, No . PCP - General 06/07/24
--- OUTSIDE RECORDS SUMMARY | 2024-09-19 08:37 | XMS_ITS | Clinical Summary ---
Author Organization [place] Address [facility] [address] Care Team Providers Care Shop Laborer Name Role Phone [facility], [facility] Primary Care Provider Allergies No known active [...] Department Care Team Description 06/21/2024 1:15 PM BIOLOGICAL SCIENCE TECHNICIAN FISH - 06/22/2024 5:18 PM BIOLOGICAL SCIENCE TECHNICIAN FISH [facility] Observation Dept [address] [place] [address] Kartik Valencia MD Young, uJan C Franks MD Hepatic cirrhosis, unspecified hepatic [...] on file Legal Sex Male 3:43 AM BIOLOGICAL SCIENCE TECHNICIAN FISH Gender Identity Not on file Sexual Orientation Not on file Last Filed Vital Signs Vital Sign Reading Time Taken Comments Blood Pressure 153/73 06/22/2024 3:32 PM BIOLOGICAL SCIENCE TECHNICIAN FISH Pulse 102 06/22/2024 3:32 PM BIOLOGICAL SCIENCE TECHNICIAN FISH Temperature 36.7 C (98 F) 06/22/2024 3:32 PM BIOLOGICAL SCIENCE TECHNICIAN FISH Respiratory Rate 20 06/22/2024 3:32 PM BIOLOGICAL SCIENCE TECHNICIAN FISH Oxygen Saturation 92% 06/22/2024 3:32 PM BIOLOGICAL SCIENCE TECHNICIAN FISH Inhaled Oxygen Concentration - - Weight 65.4 kg (144 lb 2.9 oz) 06/22/2024 12:26 PM BIOLOGICAL SCIENCE TECHNICIAN FISH Height 177.8 cm (5' 10) 06/22/2024 12:26 PM BIOLOGICAL SCIENCE TECHNICIAN FISH Body Mass Index 20.69 06/22/2024 12:26 PM BIOLOGICAL SCIENCE TECHNICIAN FISH Plan of Treatment Health Maintenance Due Date [...] 04/07/2010 PHQ-2 (once per calendar year) 2024 DIABETES SCREENING 06/22/2027 06/22/2024, 0 06/21/2024, 07/19/2023, Additional history exists LIPID 07/18/2028 07/18/2023 [...] ACID WHOLE BLOOD STAT 06/22/2024 8:27 AM BIOLOGICAL SCIENCE TECHNICIAN FISH BASIC METABOLIC PANEL STAT 06/22/2024 8:27 AM BIOLOGICAL SCIENCE TECHNICIAN FISH LACTIC ACID WHOLE BLOOD STAT 06/21/2024 6:01 PM BIOLOGICAL SCIENCE TECHNICIAN FISH TROPONIN T, HIGH SENSITIVITY STAT 06/21/2024 3:58 PM BIOLOGICAL SCIENCE TECHNICIAN FISH LACTIC ACID WHOLE BLOOD STAT 06/21/2024 3:58 PM BIOLOGICAL SCIENCE TECHNICIAN FISH CT CHEST PULMONARY EMBOLISM W CONTRAST STAT 06/21/2024 3:17 PM BIOLOGICAL SCIENCE TECHNICIAN FISH XR CHEST PORT 1 VIEW STAT 06/21/2024 2:18 PM BIOLOGICAL SCIENCE TECHNICIAN FISH INFLUENZA A/B, RSV AND SARS-COV2 PCR STAT 06/21/2024 1:36 PM BIOLOGICAL SCIENCE TECHNICIAN FISH CBC WITH PLATELETS & DIFFERENTIAL STAT 06/21/2024 1:31 PM BIOLOGICAL SCIENCE TECHNICIAN FISH D DIMER QUANTITATIVE STAT 06/21/2024 1:31 PM BIOLOGICAL SCIENCE TECHNICIAN FISH CBC WITH PLATELETS AND DIFFERENTIAL STAT 06/21/2024 1:31 PM BIOLOGICAL SCIENCE TECHNICIAN FISH EXTRA RED TOP TUBE STAT 06/21/2024 1: 31 PM BIOLOGICAL SCIENCE TECHNICIAN FISH EXTRA BLUE TOP TUBE STAT 06/21/2024 1 :31 PM BIOLOGICAL SCIENCE TECHNICIAN FISH NT PROBNP INPATIENT STAT 06/21/2024 1 :31 PM BIOLOGICAL SCIENCE TECHNICIAN FISH BLOOD GAS VENOUS STAT 06/21/2024 1:31 PM BIOLOGICAL SCIENCE TECHNICIAN FISH TROPONIN T, HIGH SENSITIVITY STAT 06/21/2024 1:31 PM BIOLOGICAL SCIENCE TECHNICIAN FISH LACTIC ACID WHOLE BLOOD WITH 1X REPEAT IN 2 HR WHEN >2 STAT 06/21/2024 1:31 PM BIOLOGICAL SCIENCE TECHNICIAN FISH COMPREHENSIVE METABOLIC PANEL STAT 06/21/2024 1:31 PM BIOLOGICAL SCIENCE TECHNICIAN FISH EXTRA TUBE STAT 06/21/2024 1:31 PM BIOLOGICAL SCIENCE TECHNICIAN FISH EKG 12-LEAD, TRACING ONLY STAT 06/21/2024 1:24 PM BIOLOGICAL SCIENCE TECHNICIAN FISH EKG CARDIAC - HIM SCAN 12:00 AM BIOLOGICAL SCIENCE TECHNICIAN FISH LIPID REFLEX TO DIRECT LDL PANEL Routine 07/18/2023 7:26 AM BIOLOGICAL SCIENCE TECHNICIAN FISH from Last 3 Months or Most Recently Relevant to Health Maintenance Results * Lactic acid whole blood (06/22/2024 8:27 AM BIOLOGICAL SCIENCE TECHNICIAN FISH) Only the most recent of3 resultswithin the time period is included. Pathologist [facility] Lactic Acid 1.9 0.7 - 2.0 mmol/L 06/22/2024 8:35 AM BIOLOGICAL SCIENCE TECHNICIAN FISH LABORATORY Blood STRUCTURE OF LEFT HAND / Unknown Venipuncture / Unknown 06/22/2024 8:27 AM BIOLOGICAL SCIENCE TECHNICIAN FISH 06/22/2024 8:33 AM BIOLOGICAL SCIENCE TECHNICIAN FISH us Monica Guy MD LAB - BLOOD ORDERABLES Final Res ult LABORATORY [facility] Acute Care Lab [address] [facility] [facility] Lab (1st floor, no room number) [place] [address] * (ABNORMAL) Basic metabolic panel (06/22/2024 8:27 AM BIOLOGICAL SCIENCE TECHNICIAN FISH) Sodium 133(L) 135 - 145 mmol/L 06/22/2024 9:14 AM BIOLOGICAL SCIENCE TECHNICIAN FISH LABORATORY Potassium 4.1 3.4 - 5.3 mmol/L 06/22/2024 9:14 AM BIOLOGICAL SCIENCE TECHNICIAN FISH LABORATORY Chloride 103 98 - 107 mmol/L 06/22/2024 9:14 AM BIOLOGICAL SCIENCE TECHNICIAN FISH LABORATORY Carbon Dioxide (CO2) 19(L) 22 - 29 mmol/L 06/22/2024 9:14 AM BIOLOGICAL SCIENCE TECHNICIAN FISH LABORATORY Anion Gap 11 7 - 15 mmol/L 06/22/2024 9:14 AM BIOLOGICAL SCIENCE TECHNICIAN FISH LABORATORY Urea Nitrogen 11.0 8.0 - 23.0 mg/dL 06/22/2024 9:14 AM BIOLOGICAL SCIENCE TECHNICIAN FISH LABORATORY Creatinine 0.68 0.67 - 1.17 mg/dL 06/22/2024 9:14 AM BIOLOGICAL SCIENCE TECHNICIAN FISH LABORATORY GFR Estimate >90 >60 mL/min/1.7 3m2 06/22/2024 9:14 AM BIOLOGICAL SCIENCE TECHNICIAN FISH LABORATORY Comment:eGFR calculated usin 2020 CKD-EPI equation. Calcium 8.6(L) 8.8 - 10.4 mg/dL 06/22/2024 9:14 AM BIOLOGICAL SCIENCE TECHNICIAN FISH LABORATORY Comment:Reference intervals for this test were updated on 12/13/2023 to reflect our healthy population more accurately. There may be differences in the flagging of prior results with similar values performed with this method. Those prior results can be interpreted in the context of the updated reference intervals. Glucose 112(H) 70 - 99 mg/dL 06/22/2024 9:14 AM [facility] LABORATORY Blood STRUCTURE OF LEFT HAND / Unknown Venipuncture / Unknown 06/22/2024 8:27 AM BIOLOGICAL SCIENCE TECHNICIAN FISH 06/22/2024 8:33 AM BIOLOGICAL SCIENCE TECHNICIAN FISH Мария Woods PA-C LAB - BLOOD ORDERABLES F inal Result LABORATORY [facility] Acute Care Lab [address] [facility] Lab (1st floor, no room number) [place] [address], [facility] * Troponin T, High Sensitivity (06/21/2024 3:58 PM BIOLOGICAL SCIENCE TECHNICIAN FISH) Only the most recent of2 resultswithin the time period is included. Pathologist [facility] Troponin T, High Sensitivity 8 <=22 ng/L 06/21/2024 4:34 PM BIOLOGICAL SCIENCE TECHNICIAN FISH LABORATORY Comment: Either a High Sensitivity Troponin [...] Unknown Venipuncture / Unknown 06/21/2024 3:58 PM BIOLOGICAL SCIENCE TECHNICIAN FISH 06/21/2024 4:10 PM BIOLOGICAL SCIENCE TECHNICIAN FISH us Kartik Valencia MD LAB - BLOOD ORDERABLES Final Result [facility] Acute Care Lab [address] Lab (1st floor, no room number) [place] [address], [facility] * CT Chest Pulmonary Embolism w Contrast (06/21/2024 3:17 PM BIOLOGICAL SCIENCE TECHNICIAN FISH) Anatomical Region Laterality Modality Chest, SUBRAD CT BODY, UMP CT CHEST Computed Tomography 06/21/2024 3:17 PM BIOLOGICAL SCIENCE TECHNICIAN FISH Impressions 06/21/2024 3:41 PM BIOLOGICAL SCIENCE TECHNICIAN FISH IMPRESSION: 1. No pulmonary artery embolism. 2. Mild emphysema and mild bronchiolitis. No pneumonic infiltrate or pleural effusion. 3. Cirrhosis and upper abdominal varices likely reflecting sequelae of portal venous hypertension. 4. Cholelithiasis. Narrative 06/21/2024 3:41 PM BIOLOGICAL SCIENCE TECHNICIAN FISH EXAM: CT CHEST PULMONARY EMBOLISM W CONTRAST LOCATION: [facility] DATE: 06/21/2024 INDICATION: SOB, elevated dimer, [...] CT CHEST PULMONARY EMBOLISM W CONTRAST LOCATION: [facility] DATE: 06/21/2024 INDICATION: SOB, elevated dimer, [...] bronchial wallthickening and endobronchial mucus impaction. Minimal [id number]. Mild upper lobar predominant emphysema. No pneumonicconsolidation [...] Chest Port 1 View (06/21/2024 2:18 PM BIOLOGICAL SCIENCE TECHNICIAN FISH) Anatomical Region Laterality Modality Chest Digital Radiogra phy 06/21/2024 2:18 PM BIOLOGICAL SCIENCE TECHNICIAN FISH Impressions 06/21/2024 2:25 PM BIOLOGICAL SCIENCE TECHNICIAN FISH IMPRESSION: No focal airspace opacities, pleural effusion or pneumothorax. Normal heart size. Hyperinflated lungs. Stable small metallic fragment in the right chest wall. Narrative 06/21/2024 2:25 PM BIOLOGICAL SCIENCE TECHNICIAN FISH EXAM: XR CHEST PORT 1 VIEW LOCATION: [facility] DATE: 06/21/2024 INDICATION: SOB COMPARISON: 07/17/2023 Procedure Note Rekha Moseley MD - 06/21/2024 EXAM: XR CHEST PORT 1 VIEW LOCATION: [facility] DATE: 06/21/2024 INDICATION: SOB COMPARISON: 07/17/2023 IMPRESSION: No focal airspace opacities, pleural effusion or pneumothorax.Normal heart size. Hyperinflated lungs. Stable small metallic fragment inthe right chest wall. us Kartik Valencia MD [facility] DIAGNOSTIC IMAGING ORDER TELLY Final Result * Influenza A/B, RSV and SARS-CoV2 PCR (COVID-19) Nasopharyngeal (06/21/2024 1:36 PM BIOLOGICAL SCIENCE TECHNICIAN FISH) Pathologist [facility] Influenza A PCR Negative Negative 06/21/2024 2:29 PM BIOLOGICAL SCIENCE TECHNICIAN FISH LABORATORY Influenza B PCR Negative Negative 06/21/2024 2:29 PM BIOLOGICAL SCIENCE TECHNICIAN FISH LABORATORY RSV PCR Negative Negative 06/21/2024 2:29 PM BIOLOGICAL SCIENCE TECHNICIAN FISH LABORATORY SARS CoV2 PCR Negative Negative 06/21/2024 2:29 PM BIOLOGICAL SCIENCE TECHNICIAN FISH LABORATORY Comment:NEGATIVE: SARS-CoV-2 (COVID-19) RNA not detected, presumed negative. Swab NASOPHARYNGEAL STRUCTURE / Unknown Non-blood Collection / Unknown 06/21/2024 1:36 PM BIOLOGICAL SCIENCE TECHNICIAN FISH 06/21/2024 1:41 PM BIOLOGICAL SCIENCE TECHNICIAN FISH Located within [facility] LABORATORY - 06/21/2024 2:29 PM BIOLOGICAL SCIENCE TECHNICIAN FISH Testing was performed using the Xpert Xpress CoV2/Flu/RSV Assay on the [employer]pert Instrument. This test should be ordered [...] management. This test was validated by the [facility]. These laboratories are certified under the Clinical Laboratory Improvement Amendments of 1988 (CLIA-88) as qualified to perfom high complexity laboratory testing. Kartik Valencia MD LAB - MICRO GENERAL ORDERABL ES Final Result [facility] Lab [address] Lab (1st floor, no room number) [place] [address], [facility] * Extra Red Top Tube (06/21/2024 1:31 PM BIOLOGICAL SCIENCE TECHNICIAN FISH) Hold Specimen [facility] 06/21/2024 2:46 PM BIOLOGICAL SCIENCE TECHNICIAN FISH [facility] LABORATORY Blood BLOOD SPECIMEN / Unknown Venipuncture / Unknown 06/21/2024 1:31 PM BIOLOGICAL SCIENCE TECHNICIAN FISH 06/21/2024 1:42 PM BIOLOGICAL SCIENCE TECHNICIAN FISH Buck Gutiérrez MD LAB - BLOOD ORDERABLES Final Result Performing Organization Address City/[facility]/ZIP Co de Phone Number [facility] Lab [address] Lab (1st floor, no room number) [place] [address], [facility] * Extra Blue Top Tube (06/21/2024 1:31 PM BIOLOGICAL SCIENCE TECHNICIAN FISH) Hold Specimen [facility] 06/21/2024 2:46 PM BIOLOGICAL SCIENCE TECHNICIAN FISH LABORATORY Blood BLOOD SPECIMEN / Unknown Venipuncture / Unknown 06/21/2024 1:31 PM BIOLOGICAL SCIENCE TECHNICIAN FISH 06/21/2024 1:42 PM BIOLOGICAL SCIENCE TECHNICIAN FISH Buck Gutiérrez MD LAB - BLOOD ORDERABLES Final Result [facility] Lab [address] Lab (1st floor, no room number) [place] [address], [facility] * (ABNORMAL) Lactic acid whole blood with 1x repeat in 2 hr when >2 (06/21/2024 1:31 PM BIOLOGICAL SCIENCE TECHNICIAN FISH) [facility] Lactic Acid, Initial 3.6(H) 0.7 - 2.0 mmol/L 06/21/2024 1:49 PM BIOLOGICAL SCIENCE TECHNICIAN FISH RH LABORATORY Blood BLOOD SPECIMEN / Unknown Venipuncture / Unknown 06/21/2024 1:31 PM BIOLOGICAL SCIENCE TECHNICIAN FISH 06/21/2024 1:41 PM BIOLOGICAL SCIENCE TECHNICIAN FISH us Kartik Valencia MD LAB - BLOOD ORDERABLES Final Result RH LABORATORY [facility] Acute Care Lab [address] [facility] Lab (1st floor, no room number) [place] [address] * (ABNORMAL) CBC with platelets and differential (06/21/2024 1:31 PM BIOLOGICAL SCIENCE TECHNICIAN FISH) [facility] WBC Count 5.2 4.0 - 11.0 10e3/uL 06/21/2024 2:04 PM BIOLOGICAL SCIENCE TECHNICIAN FISH RH LABORATORY RBC Count 4.91 4.40 - 5.90 10e6/uL 06/21/2024 2:04 PM BIOLOGICAL SCIENCE TECHNICIAN FISH RH LABORATORY Hemoglobin 15.1 13.3 - 17.7 g/dL 06/21/2024 2:04 PM BIOLOGICAL SCIENCE TECHNICIAN FISH RH LABORATORY Hematocrit 44.6 40.0 - 53.0 % 06/21/2024 2:04 PM BIOLOGICAL SCIENCE TECHNICIAN FISH RH LABORATORY MCV 91 78 - 100 fL 06/21/2024 2:04 PM BIOLOGICAL SCIENCE TECHNICIAN FISH RH LABORATORY MCH 30.8 26.5 - 33.0 pg 06/21/2024 2:04 PM BIOLOGICAL SCIENCE TECHNICIAN FISH RH LABORATORY MCHC 33.9 31.5 - 36.5 g/dL 06/21/2024 2:04 PM BIOLOGICAL SCIENCE TECHNICIAN FISH RH LABORATORY RDW 15.7(H) 10.0 - 15.0 % 06/21/2024 2:04 PM BIOLOGICAL SCIENCE TECHNICIAN FISH [facility] LABORATORY Platelet Count 137(L) 150 - 450 10e3/uL 06/21/2024 2:04 PM BIOLOGICAL SCIENCE TECHNICIAN FISH [facility] LABORATORY % Neutrophils 44 % 06/21/2024 2:04 PM BIOLOGICAL SCIENCE TECHNICIAN FISH [facility] LABORATORY % Lymphocytes 24 % 06/21/2024 2:04 PM BIOLOGICAL SCIENCE TECHNICIAN FISH [facility] LABORATORY % Monocytes 14 % 06/21/2024 2:04 PM BIOLOGICAL SCIENCE TECHNICIAN FISH [facility] LABORATORY % Eosinophils 15 % 06/21/2024 2:04 PM BIOLOGICAL SCIENCE TECHNICIAN FISH [facility] LABORATORY % Basophils 3 % 06/21/2024 2:04 PM BIOLOGICAL SCIENCE TECHNICIAN FISH [facility] LABORATORY % Immature Granulocytes 0 % 06/21/2024 2:04 PM BIOLOGICAL SCIENCE TECHNICIAN FISH [facility] LABORATORY NRBCs per 100 WBC 0 <1 /100 025 2:04 PM BIOLOGICAL SCIENCE TECHNICIAN FISH [facility] LABORATORY Absolute Neutrophils 2.3 1.6 - 8.3 10e3/uL 06/21/2024 2:04 PM BIOLOGICAL SCIENCE TECHNICIAN FISH RH LABORATORY Absolute Lymphocytes 1.2 0.8 - 5.3 10e3/uL 06/21/2024 2:04 PM BIOLOGICAL SCIENCE TECHNICIAN FISH [facility] LABORATORY Absolute Monocytes 0.7 0.0 - 1.3 10e3/uL 06/21/2024 2:04 PM BIOLOGICAL SCIENCE TECHNICIAN FISH [facility] LABORATORY Absolute Eosinophils 0.8(H) 0.0 - 0.7 10e3/uL 06/21/2024 2:04 PM BIOLOGICAL SCIENCE TECHNICIAN FISH RH LABORATORY Absolute Basophils 0.1 0.0 - 0.2 10e3/uL 06/21/2024 2:04 PM BIOLOGICAL SCIENCE TECHNICIAN FISH RH LABORATORY Absolute Immature Granulocytes 0.0 <=0.4 10e3/uL 06/21/2024 2:04 PM BIOLOGICAL SCIENCE TECHNICIAN FISH RH LABORATORY Absolute NRBCs 0.0 10e3/uL 06/21/2024 2:04 PM BIOLOGICAL SCIENCE TECHNICIAN FISH RH LABORATORY Blood BLOOD SPECIMEN / Unknown Venipuncture / Unknown 06/21/2024 1:31 PM BIOLOGICAL SCIENCE TECHNICIAN FISH 06/21/2024 1:42 PM BIOLOGICAL SCIENCE TECHNICIAN FISH us Kartik Valencia MD LAB - BLOOD ORDERABLES Final Result RH LABORATORY [facility] Acute Care Lab [address] Lab (1st floor, no room number) [place] [address], [facility] * Nt probnp inpatient (BNP) (06/21/2024 1:31 PM BIOLOGICAL SCIENCE TECHNICIAN FISH) Pathologist [facility] N terminal Pro BNP Inpatient 56 0 - 900 pg/mL 06/21/2024 2:45 PM BIOLOGICAL SCIENCE TECHNICIAN FISH RH LABORATORY Comment: Reference range shown and [...] Unknown Venipuncture / Unknown 06/21/2024 1:31 PM BIOLOGICAL SCIENCE TECHNICIAN FISH 06/21/2024 1:42 PM BIOLOGICAL SCIENCE TECHNICIAN FISH us Kartik Valencia MD LAB - BLOOD ORDERABLES Final Result RH LABORATORY [facility] Acute Care Lab [address] [facility] Lab (1st floor, no room number) [place] [address] * (ABNORMAL) D dimer quantitative (06/21/2024 1:31 PM BIOLOGICAL SCIENCE TECHNICIAN FISH) [facility] D-Dimer Quantitative 1.06(H) 0.00 - 0.50 ug/mL FEU 06/21/2024 2:26 PM BIOLOGICAL SCIENCE TECHNICIAN FISH [facility] LABORATORY Blood BLOOD SPECIMEN / Unknown Venipuncture / Unknown 06/21/2024 1:31 PM BIOLOGICAL SCIENCE TECHNICIAN FISH 06/21/2024 1:42 PM BIOLOGICAL SCIENCE TECHNICIAN FISH Narrative RH LABORATORY - 06/21/2024 2:26 PM BIOLOGICAL SCIENCE TECHNICIAN FISH This D-dimer assay is intended for use [...] out pulmonary embolism: The ADJUST-PE Study. DEANNA 2014;311:1699-9479.; HJ Kin et al. Diagnostic accuracy of conventional or age adjusted D-dimer cutoff values in older patients with suspected venous thromboembolism. Systemic review and meta-analysis. BMJ 2013:346:f2492. us Kartik Valencia MD LAB - BLOOD ORDERABLES Final Result RH LABORATORY [facility] Acute Care Lab [address] [facility] Lab (1st floor, no room number) [place] [address], [facility] * (ABNORMAL) Comprehensive metabolic panel (06/21/2024 1:31 PM BIOLOGICAL SCIENCE TECHNICIAN FISH) Sodium 138 135 - 145 mmol/L 06/21/2024 2:08 PM [facility] LABORATORY Potassium 3.9 3.4 - 5.3 mmol/L 06/21/2024 2:08 PM [facility] LABORATORY Carbon Dioxide (CO2) 21(L) 22 - 29 mmol/L 06/21/2024 2:08 PM [facility] LABORATORY Anion Gap 14 7 - 15 mmol/L 06/21/2024 2:08 PM [facility] LABORATORY Urea Nitrogen 8.1 8.0 - 23.0 mg/dL 06/21/2024 2:08 PM [facility] LABORATORY Creatinine 0.79 0.67 - 1.17 mg/dL 06/21/2024 2:08 PM [facility] LABORATORY GFR Estimate >90 >60 mL/min/1.7 3m2 06/21/2024 2:08 PM [facility] LABORATORY Comment:eGFR calculated usin 2020 CKD-EPI equation. Calcium 8.7(L) 8.8 - 10.4 mg/dL 06/21/2024 2:08 PM [facility] LABORATORY Comment:Reference intervals for this test were updated on 12/13/2023 to reflect our healthy population more accurately. There may be differences in the flagging of prior results with similar values performed with this method. Those prior results can be interpreted in the context of the updated reference intervals. Chloride 103 98 - 107 mmol/L 06/21/2024 2:08 PM [facility] LABORATORY Glucose 106(H) 70 - 99 mg/dL 06/21/2024 2:08 PM BIOLOGICAL SCIENCE TECHNICIAN FISH [facility] LABORATORY Alkaline Phosphatase 134 40 - 150 U/L 06/21/2024 2:08 PM BIOLOGICAL SCIENCE TECHNICIAN FISH [facility] LABORATORY AST 71(H) 0 - 45 U/L 06/21/2024 2:08 PM BIOLOGICAL SCIENCE TECHNICIAN FISH [facility] LABORATORY ALT 42 0 - 70 U/L 06/21/2024 2:08 PM BIOLOGICAL SCIENCE TECHNICIAN FISH [facility] LABORATORY Protein Total 7.5 6.4 - 8.3 g/dL 06/21/2024 2:08 PM BIOLOGICAL SCIENCE TECHNICIAN FISH [facility] LABORATORY Albumin 3.7 3.5 - 5.2 g/dL 06/21/2024 2:08 PM BIOLOGICAL SCIENCE TECHNICIAN FISH LABORATORY Bilirubin Total 1.7(H) <=1.2 mg/dL 06/21/2024 2:08 PM BIOLOGICAL SCIENCE TECHNICIAN FISH LABORATORY Blood BLOOD SPECIMEN / Unknown Venipuncture / Unknown 06/21/2024 1:31 PM BIOLOGICAL SCIENCE TECHNICIAN FISH 06/21/2024 1:42 PM BIOLOGICAL SCIENCE TECHNICIAN FISH us Kartik Valencia MD LAB - BLOOD ORDERABLES Final Result RH LABORATORY [facility] Acute Care Lab [address] [facility] Lab (1st floor, no room number) [place] [address] * (ABNORMAL) Blood gas venous (06/21/2024 1:31 PM BIOLOGICAL SCIENCE TECHNICIAN FISH) pH Venous 7.46(H) 7.32 - 7.43 06/21/2024 1:48 PM BIOLOGICAL SCIENCE TECHNICIAN FISH [facility] LABORATORY pCO2 Venous 34(L) 40 - 50 mm Hg 06/21/2024 1:48 PM BIOLOGICAL SCIENCE TECHNICIAN FISH [facility] LABORATORY pO2 Venous 44 25 - 47 mm Hg 06/21/2024 1:48 PM BIOLOGICAL SCIENCE TECHNICIAN FISH [facility] LABORATORY Bicarbonate Venous 24 21 - 28 mmol/L 06/21/2024 1:48 PM BIOLOGICAL SCIENCE TECHNICIAN FISH [facility] LABORATORY Base Excess/Deficit Venous 0.7 -3.0 - 3.0 mmol/L 06/21/2024 1:48 PM BIOLOGICAL SCIENCE TECHNICIAN FISH [facility] LABORATORY FIO2 21 VIRGEN 06/21/2024 1:48 PM BIOLOGICAL SCIENCE TECHNICIAN FISH [facility] LABORATORY Oxyhemoglobin Venous 78(H) 70 - 75 % 06/21/2024 1:48 PM BIOLOGICAL SCIENCE TECHNICIAN FISH [facility] LABORATORY O2 Sat, Venous 79.5(H) 70.0 - 75.0 % 06/21/2024 1:48 PM BIOLOGICAL SCIENCE TECHNICIAN FISH [facility] LABORATORY Blood, venous BLOOD SPECIMEN / Unknown Venipuncture / Unknown 06/21/2024 1:31 PM BIOLOGICAL SCIENCE TECHNICIAN FISH 06/21/2024 1:41 PM BIOLOGICAL SCIENCE TECHNICIAN FISH Narrative [facility] LABORATORY - 06/21/2024 1:48 PM BIOLOGICAL SCIENCE TECHNICIAN FISH In healthy individuals, oxyhemoglobin (O2Hb) and oxygen saturation (SO2) are approximately equal. In the presence of dyshemoglobins, oxyhemoglobin can be considerably lower than oxygen saturation. us Kartik Valencia MD LAB - BLOOD ORDERABLES Final Result LABORATORY [facility] Acute Care Lab [address] [facility] Lab (1st floor, no room number) [place] [address] * EKG 12-lead, tracing only (06/21/2024 1:24 PM BIOLOGICAL SCIENCE TECHNICIAN FISH) Systolic Blood Pressure mmHg RADIOLOGY RESULTS Diastolic Blood Pressure mmHg RADIOLOGY RESULTS Ventricular Rate 95 BPM RAD IOLOGY RESULTS Atrial Rate 95 BPM RADIOLOG Y RESULTS AZ Interval 160 ms RADIOLOG Y RESULTS QRS Duration 72 ms RADIOLO GY RESULTS QT 352 ms RADIOLOGY RESULTS QTc 442 ms RADIOLOGY RESULTS P [place] 64 degrees RADIOLOGY RESULTS R AXIS 44 degrees RADIOLOGY RESULTS T [place] 78 degrees RADIOLOGY RESULTS Interpretation ECG Sinus rhythm Septal infarct (cited on or before 17-Jul-2023) Abnormal ECG When compared with ECG of 17-Jul-2023 10:13, No significant change was found Unconfirmed report - interpretation of this ECG is computer generated - see medical record for final interpretation Confirmed by - EMERGENCY ROOM, PHYSICIAN ([id number]), editor school photograph Natanael Brandon ([id number]) on 06/21/2024 1:36:53 PM RADIOLOGY RESULTS 06/21/2024 1:24 PM BIOLOGICAL SCIENCE TECHNICIAN FISH 06/21/2024 1:36 PM BIOLOGICAL SCIENCE TECHNICIAN FISH us Buck Gutiérrez MD ECG ORDERABLES Edited Result - Final RADIOLOGY RESULTS * EKG Cardiac - HIM Scan (06/21/2024 12:00 AM BIOLOGICAL SCIENCE TECHNICIAN FISH) 06/21/2024 us Provider Outside ECG ORDERABLES Final Result * Lipid panel reflex to direct LDL (07/18/2023 7:26 AM BIOLOGICAL SCIENCE TECHNICIAN FISH) Cholesterol 108 <200 mg/dL 07/18/2023 11:34 AM BIOLOGICAL SCIENCE TECHNICIAN FISH [facility] Triglycerides 31 <150 mg/dL 07/18/2023 11:34 AM BIOLOGICAL SCIENCE TECHNICIAN FISH [facility] Direct Measure HDL 57 >=40 mg/dL 07/18/2023 11:34 AM BIOLOGICAL SCIENCE TECHNICIAN FISH [facility] LDL Cholesterol Calculated 45 <=100 mg/dL 07/18/2023 11:34 AM BIOLOGICAL SCIENCE TECHNICIAN FISH [facility] Non HDL Cholesterol 51 <130 mg/dL 07/18/2023 11:34 AM BIOLOGICAL SCIENCE TECHNICIAN FISH [facility] Patient Fasting > 8hrs? Unknown 07/18/2023 11:34 AM BIOLOGICAL SCIENCE TECHNICIAN FISH [facility] LAB[facility] Blood STRUCTURE OF RIGHT UPPER LIMB / Unknown Venipuncture / Unknown 07/18/2023 7:26 AM BIOLOGICAL SCIENCE TECHNICIAN FISH 07/18/2023 7:31 AM BIOLOGICAL SCIENCE TECHNICIAN FISH Narrative [facility] - 07/18/2023 11:34 AM BIOLOGICAL SCIENCE TECHNICIAN FISH Cholesterol Desirable: <200 mg/dL Triglycerides Normal: Less [...] BLOOD ORDERABLES F inal Result [facility] [place] [facility] [address], [address] [place] [address], [facility] [phone] [facility] Acute [facility] Lab [address] Lab (1st floor, no room number) [place] [address], [facility] [phone] from Last 3 Months or Most Recently Relevant to Health Maintenance Insurance MEDICARE MEDICARE OTHER Member Subscriber Plan / Payer (Ef fective 2005-Present) Name:Myke Aggarwal Relation to Subscriber:Employee Name:[id number] Subscriber ID:[id number] Date of :1955 x35 (Home) Address: [address] [place] [address] Payer ID:[id number] Type:Not on file Address: [address] [place] [address] [place] [address] Advance Directives For more information, please contact: [phone] * Full Code (Latest Code Status on File) Date Activated Date Inactivated Comments 06/21/2024 7:14 PM 06/22/2024 7:23 PM All basic an d advanced life-sustaining interventions are performed as appropriate Question Answer Comments Code status determined by: Discussion with bernice nt/ legal decision maker * Full Code Date Activated Date Inactivated Comments 07/17/2023 7:34 PM 07/19/2023 2:27 PM All basic an d advanced life-sustaining interventions are performed as appropriate Question Answer Comments Code status determined by: Discussion with bernice nt/ legal decision maker Care Teams Shop Laborer Relationship Specialty Start Date End Date [facility], [address] [address] PCP - General 06/21/24
[2024-09-19 08:38] VITALS: BP 125/75; PULSE 102; RESP 20; TEMP 37.6; O2SAT 92; BMI 21.4
--- NOTE | 2024-09-19 09:06 | CRLHL7_ITS ---
For Patients: As a result of the Century Cures Act, medical imaging exams and procedure reports are released immediately into your electronic medical record. You may view this report before your referring provider. If you have questions, please contact your health care provider. INDICATION: COPD. Smoker. Dyspnea. COMPARISON: None TECHNIQUE: PA and lateral views of the chest were acquired FINDINGS: TUBES AND LINES: None. HEART AND MEDIASTINUM: The heart size is normal. The mediastinal contour appears normal for patient age. LUNGS AND PLEURAL SPACES: Hyperinflation consistent with COPD.No acute focal findings. OSSEOUS STRUCTURES: Age-appropriate appearance. No acute focal finding.Metallic foreign body identified in the subcutaneous tissues of the anterior chest wall inferiorly and medially measuring about 3 millimeters. This is metallic. Incidentally, the colon is interposed between the liver and the diaphragm. This is generally considered normal variation. IMPRESSION: COPD pattern without acute focal finding. Small metallic foreign body incidentally noted. Dictated by Justin He MD @ 09/19/2024 10:32:13 AM (Electronically Signed)
--- NOTE | 2024-09-19 09:07 | ED.SOB ---
HPI - SOB/Dyspnea General Chief Complaint: Shortness of Breath/Dyspnea Stated Complaint: hard time breathing Time Seen by Provider: 09/19/24 08:57 History of Present Illness HPI Narrative: This 68-year-old male comes in reporting shortness of breath. He has COPD and continues to smoke. He does not report any fevers but wonders if he may have an infection. He states that he has run out of his inhaler medications. He arrives here with borderline tachycardia but has sufficient oximetry at 92% on room air. He does report some orthopnea symptoms. Related Data Home Medications ?Medication ?Instructions ?Recorded ?Confirmed albuterol sulfate 90 mcg/actuation 2 puff inhalation Q4H PRN dyspnea 08/12/24 09/19/24 aerosol inhaler ipratropium 0.5 mg-albuterol 3 mg 3 ml inhalation Q6H PRN dyspnea 08/12/24 09/19/24 (2.5 mg base)/3 mL nebulization soln tiotropium bromide 2.5 2 puff inhalation DAILY 08/12/24 09/19/24 mcg/actuation mist for inhalation (Spiriva Respimat) Previous Rx's ?Medication ?Instructions ?Recorded albuterol sulfate 90 mcg/actuation 2 inh inhalation Q4-6H PRN #1 ea 09/19/24 breath activated powder inhaler furosemide 20 mg tablet (Lasix) 20 mg PO DAILY #10 tabs 09/19/24 ipratropium 0.5 mg-albuterol 3 mg 3 ml inhalation Q6H PRN #180 mL 09/19/24 (2.5 mg base)/3 mL nebulization soln methylprednisolone 4 mg tablets in See Rx Instructions PO .COMPLEX 09/19/24 a dose pack (Medrol (Evangelista)) #21 ea Allergies Allergy/AdvReac Type Severity Reaction Status Date / Time No Known Drug Allergies Allergy Verified 09/19/24 08:47 Review of Systems Status of ROS: Reports: 10 or more systems reviewed and unremarkable except as noted in History and below Narrative: Constitutional: No fevers, no weight gain or loss. Eyes: No discharge. No vision changes. HENT: No congestion, no sore throat, no ear pain. Cardiovascular: No chest pain, no palpitations. Respiratory: He reports shortness of breath. Gastrointestinal: No abdominal pain, no vomiting, no diarrhea. Genitourinary: No dysuria, no hematuria. Musculoskeletal: Normal range of motion. Skin: No rashes, no pruritis. Neurological: No dizziness, weakness, sensory change, speech change. Endo/Heme/Allergies: No bruising or bleeding. No polydipsia. Pysch: no suicidality, no anxiety, no insomnia. All other systems reviewed and are negative. [facility] Social History Smoking Status: Current every day smoker What tobacco products do you use: cigarettes Smoking packs per day: 0.25 Smoking cigarettes per day: 5.0 Years smoked: 55 Smoking pack-years: 13.75 service: No Exam Narrative: Exam Narrative: Constitutional: Well-developed, well-nourished, no acute distress. HEENT: Normocephalic, atraumatic. Neck: Normal range of motion. Nontender. Supple. Heart: Regular. No murmurs. Normal rate. Intact distal pulses. Lungs: Bilateral and expiratory wheezes. Abdomen: Normal bowel sounds. Nontender. No rebound tenderness. Genitalia: Deferred. Back: No midline tenderness. Normal range of motion. Extremities: Normal range of motion. No injury. Bilateral pedal edema. Skin: Intact. No rash. Warm. No erythema or pallor. Neurologic: No altered sensation. No weakness. Alert and oriented. Psychiatric: No suicidality. No anxiety or depression. No insomnia. Nursing notes and vitals signs are reviewed. Const: Vital Signs, click to edit/add: Vital Signs - 24 hr 09/19/24 08:38 Temperature 99.7 F H Pulse Rate [Pulse Oximeter] 102 H Respiratory Rate 20 Blood Pressure [Ri t Upper Arm] 125/75 Pulse Oximetry 92 Oxygen Delivery Me thod Room Air Course Vital Signs Vital signs: Initial Vital Signs Respiratory Effort Short of Breath 09/19/24 08:37 Respiratory Depth Shallow 09/19/24 08:37 Vital Signs Temperature 99.7 F H 09/19/24 08:38 Pulse Rate 102 H 09/19/24 08:38 Respiratory Rate 20 09/19/24 08:38 Blood Pressure 125/75 09/19/24 08:38 Pulse Oximetry 92 09/19/24 08:38 Oxygen Delivery Method Room Air 09/19/24 08:38 Temperature 99.7 F H 09/19/24 08:38 Pulse Rate 102 H 09/19/24 08:38 Respiratory Rate 20 09/19/24 08:38 Blood Pressure 125/75 09/19/24 08:38 Pulse Oximetry 92 09/19/24 08:38 Oxygen Delivery Method Room Air 09/19/24 08:38 Medications Administered Medications: Discontinued Medications Generic Name Dose Route Start Last Admin Trade Name Karen PRN Reason Stop Dose Admin Albuterol/Ipratropium 1 neb 09/19/24 09:06 09/19/24 09:18 Iprat-Albut 0.5-2.5 Mg/3 Ml Neb IH 09/19/24 09:07 1 neb ONCE ONE Administration Dexamethasone 10 mg 09/19/24 09:15 09/19/24 09:18 Dexamethasone 10 Mg/Ml Pf PO 09/19/24 09:16 10 mg ONCE ONE Administration MDM - SOB/Dyspnea MDM Narrative Medical decision making narrative: This patient comes in reporting increasing shortness of breath and states that he has run out of his inhaled medications. He is a smoker and continues to smoke a pack and a half daily. He arrives here with borderline tachycardia and O2 sats at 92% on room air. The patient did receive a DuoNeb an oral dose of dexamethasone here. He continues to have sufficient vital signs which for his chronic obstructive pulmonary disease and continued smoking is probably normal for him. A chest x-ray is obtained and shows no acute findings. The patient is okay to be discharged home. I advised him to stop smoking of course. He did receive prescription for Medrol Dosepak, DuoNeb medication, and albuterol inhaler. I also provided a prescription for some tablets of Lasix as he does have some mild bilateral pedal edema. Imaging Data Chest x-ray: Radiologist's impression: COPD pattern without acute focal finding. Small metallic foreign body incidentally noted. Discharge Plan Discharge Clinical Impression: Asthma with acute exacerbation, Continuous tobacco abuse Patient Disposition: Home, Self-Care Condition: Stable Additional Instructions: Take medications as prescribed. Smoking cessation is advised. Follow up with MD for ongoing management of medications. Return if worsening symptoms occur. Prescriptions: New furosemide [Lasix] 20 mg tablet 20 mg PO DAILY Qty: 10 0RF methylprednisolone [Medrol (Evangelista)] 4 mg tablets,dose pack See Rx Instructions .ROUTE .COMPLEX Qty: 21 0RF Rx Instructions: orally per package directions albuterol sulfate 90 mcg/actuation aerosol powdr breath activated 2 inh inhalation Q4-6H PRNQty: 1 2RF ipratropium-albuterol 0.5 mg-3 mg(2.5 mg base)/3 mL solution for nebulization 3 ml inhalation Q6H PRNQty: 180 2RF No Action ipratropium-albuterol 0.5 mg-3 mg(2.5 mg base)/3 mL solution for nebulization 3 ml INHALATION Q6H PRN (Reason: dyspnea) albuterol sulfate 90 mcg/actuation HFA aerosol inhaler 2 puff inhalation Q4H PRN (Reason: dyspnea) Spiriva Respimat 2.5 mcg/actuation mist 2 puff inhalation DAILY Follow Up/Referrals: Provider,Not a Local [Primary Care Provider] - Stand Alone Forms: [facility] Instructions
[2024-09-19] MEDS: IPRAT-ALBUT 0.5-2.5 MG/3 ML NEB 1 NEB IH (09:18)
[2024-09-19] MEDS: DEXAMETHASONE 10 MG/ML PF PO (09:18)
--- OUTSIDE RECORDS SUMMARY | 2024-09-19 09:29 | XMS_ITS | Clinical Summary ---
Author Organization [place] Address Formerly [facility] [place] [address] Care Team Providers Care Photogrammetric Surveyor Name Role Phone [facility], [facility] Primary Care Provider Allergies No known [...] Department Care Team Description 06/21/2024 1:15 PM SENIOR PAYROLL ADMINISTRATOR - 06/22/2024 5:18 PM SENIOR PAYROLL ADMINISTRATOR [facility] Dept [address] [place] [address] Kartik Valencia MD Young, Juan C Franks [...] on file Legal Sex Male 3:43 AM SENIOR PAYROLL ADMINISTRATOR Gender Identity Not on file Sexual Orientation Not on file Last Filed Vital Signs Vital Sign Reading Time Taken Comments Blood Pressure 153/73 06/22/2024 3:32 PM SENIOR PAYROLL ADMINISTRATOR Pulse 102 06/22/2024 3:32 PM SENIOR PAYROLL ADMINISTRATOR Temperature 36.7 C (98 F) 06/22/2024 3:32 PM SENIOR PAYROLL ADMINISTRATOR Respiratory Rate 20 06/22/2024 3:32 PM SENIOR PAYROLL ADMINISTRATOR Oxygen Saturation 92% 06/22/2024 3:32 PM SENIOR PAYROLL ADMINISTRATOR Inhaled Oxygen Concentration - - Weight 65.4 kg (144 lb 2.9 oz) 06/22/2024 12:26 PM SENIOR PAYROLL ADMINISTRATOR Height 177.8 cm (5' 10) 06/22/2024 12:26 PM SENIOR PAYROLL ADMINISTRATOR Body Mass Index 20.69 06/22/2024 12:26 PM SENIOR PAYROLL ADMINISTRATOR Plan of Treatment Health Maintenance Due Date [...] ACID WHOLE BLOOD STAT 06/22/2024 8:27 AM SENIOR PAYROLL ADMINISTRATOR BASIC METABOLIC PANEL STAT 06/22/2024 8:27 AM SENIOR PAYROLL ADMINISTRATOR LACTIC ACID WHOLE BLOOD STAT 06/21/2024 6:01 PM SENIOR PAYROLL ADMINISTRATOR TROPONIN T, HIGH SENSITIVITY STAT 06/21/2024 3:58 PM SENIOR PAYROLL ADMINISTRATOR LACTIC ACID WHOLE BLOOD STAT 06/21/2024 3:58 [address] PAYROLL ADMINISTR[address] CHEST PULMONARY EMBOLISM W CONTRAST STAT 06/21/2024 3:17 PM SENIOR PAYROLL ADMINISTRATOR XR CHEST PORT 1 VIEW STAT 06/21/2024 2:18 PM SENIOR PAYROLL ADMINISTRATOR INFLUENZA A/B, RSV AND SARS-COV2 PCR STAT 06/21/2024 1:36 PM SENIOR PAYROLL ADMINISTRATOR CBC WITH PLATELETS & DIFFERENTIAL STAT 06/21/2024 1:31 PM SENIOR PAYROLL ADMINISTRATOR D DIMER QUANTITATIVE STAT 06/21/2024 1:31 PM SENIOR PAYROLL ADMINISTRATOR CBC WITH PLATELETS AND DIFFERENTIAL STAT 06/21/2024 1:31 PM SENIOR PAYROLL ADMINISTRATOR EXTRA RED TOP TUBE STAT 06/21/2024 1: 31 PM SENIOR PAYROLL ADMINISTRATOR EXTRA BLUE TOP TUBE STAT 06/21/2024 1 :31 PM SENIOR PAYROLL ADMINISTRATOR NT PROBNP INPATIENT STAT 06/21/2024 1 :31 PM SENIOR PAYROLL ADMINISTRATOR BLOOD GAS VENOUS STAT 06/21/2024 1:31 PM SENIOR PAYROLL ADMINISTRATOR TROPONIN T, HIGH SENSITIVITY STAT 06/21/2024 1:31 PM SENIOR PAYROLL ADMINISTRATOR LACTIC ACID WHOLE BLOOD WITH 1X REPEAT IN 2 HR WHEN >2 STAT 06/21/2024 1:31 PM SENIOR PAYROLL ADMINISTRATOR COMPREHENSIVE METABOLIC PANEL STAT 06/21/2024 1:31 PM SENIOR PAYROLL ADMINISTRATOR EXTRA TUBE STAT 06/21/2024 1:31 PM SENIOR PAYROLL ADMINISTRATOR EKG 12-LEAD, TRACING ONLY STAT 06/21/2024 1:24 PM SENIOR PAYROLL ADMINISTRATOR EKG CARDIAC - HIM SCAN 12:00 AM SENIOR PAYROLL ADMINISTRATOR LIPID REFLEX TO DIRECT LDL PANEL Routine 07/18/2023 7:26 AM SENIOR PAYROLL ADMINISTRATOR from Last 3 Months or Most Recently Relevant to Health Maintenance Results * Lactic acid whole blood (06/22/2024 8:27 AM SENIOR PAYROLL ADMINISTRATOR) Only the most recent of3 resultswithin the time period is included. Pathologist [facility] Lactic Acid 1.9 0.7 - 2.0 mmol/L 06/22/2024 8:35 AM SENIOR PAYROLL ADMINISTRATOR LABORATORY Blood STRUCTURE OF LEFT HAND / Unknown Venipuncture / Unknown 06/22/2024 8:27 AM SENIOR PAYROLL ADMINISTRATOR 06/22/2024 8:33 AM SENIOR PAYROLL ADMINISTRATOR us Monica Guy MD LAB - BLOOD ORDERABLES Final Res ult LABORATORY [facility] Acute [facility] Lab [address] [facility] Lab (1st floor, no room number) [place] [address] * (ABNORMAL) Basic metabolic panel (06/22/2024 8:27 AM SENIOR PAYROLL ADMINISTRATOR) Sodium 133(L) 135 - 145 mmol/L 06/22/2024 9:14 AM SENIOR PAYROLL ADMINISTRATOR LABORATORY Potassium 4.1 3.4 - 5.3 mmol/L 06/22/2024 9:14 AM SENIOR PAYROLL ADMINISTRATOR LABORATORY Chloride 103 98 - 107 mmol/L 06/22/2024 9:14 AM SENIOR PAYROLL ADMINISTRATOR LABORATORY Carbon Dioxide (CO2) 19(L) 22 - 29 mmol/L 06/22/2024 9:14 AM SENIOR PAYROLL ADMINISTRATOR LABORATORY Anion Gap 11 7 - 15 mmol/L 06/22/2024 9:14 AM SENIOR PAYROLL ADMINISTRATOR LABORATORY Urea Nitrogen 11.0 8.0 - 23.0 mg/dL 06/22/2024 9:14 AM SENIOR PAYROLL ADMINISTRATOR LABORATORY Creatinine 0.68 0.67 - 1.17 mg/dL 06/22/2024 9:14 AM SENIOR PAYROLL ADMINISTRATOR LABORATORY GFR Estimate >90 >60 mL/min/1.7 3m2 06/22/2024 9:14 AM SENIOR PAYROLL ADMINISTRATOR LABORATORY Comment:eGFR calculated usin 2020 CKD-EPI equation. Calcium 8.6(L) 8.8 - 10.4 mg/dL 06/22/2024 9:14 AM SENIOR PAYROLL ADMINISTRATOR LABORATORY Comment:Reference intervals for this test were updated on 12/13/2023 to reflect our healthy population more accurately. There may be differences in the flagging of prior results with similar values performed with this method. Those prior results can be interpreted in the context of the updated reference intervals. Glucose 112(H) 70 - 99 mg/dL 06/22/2024 9:14 AM [facility] LABORATORY Blood STRUCTURE OF LEFT HAND / Unknown Venipuncture / Unknown 06/22/2024 8:27 AM SENIOR PAYROLL ADMINISTRATOR 06/22/2024 8:33 AM SENIOR PAYROLL ADMINISTRATOR Мария Woods PA-C LAB - BLOOD ORDERABLES F inal Result LABORATORY [facility] Acute [facility] Lab [address] [facility] Lab (1st floor, no room number) [place] [address], [facility] * Troponin T, High Sensitivity (06/21/2024 3:58 PM SENIOR PAYROLL ADMINISTRATOR) Only the most recent of2 resultswithin the time period is included. Pathologist [facility] Troponin T, High Sensitivity 8 <=22 ng/L 06/21/2024 4:34 PM SENIOR PAYROLL ADMINISTRATOR LABORATORY Comment: Either a High Sensitivity Troponin [...] Unknown Venipuncture / Unknown 06/21/2024 3:58 PM SENIOR PAYROLL ADMINISTRATOR 06/21/2024 4:10 PM SENIOR PAYROLL ADMINISTRATOR us Kartik Valencia MD LAB - BLOOD ORDERABLES Final Result [facility] Acute Care Lab [address] Lab (1st floor, no room number) [place] [address], [facility] * CT Chest Pulmonary Embolism w Contrast (06/21/2024 3:17 PM SENIOR PAYROLL ADMINISTRATOR) Anatomical Region Laterality Modality Chest, SUBRAD CT BODY, UMP CT CHEST Computed Tomography 06/21/2024 3:17 PM SENIOR PAYROLL ADMINISTRATOR Impressions 06/21/2024 3:41 PM SENIOR PAYROLL ADMINISTRATOR IMPRESSION: 1. No pulmonary artery embolism. 2. Mild emphysema and mild bronchiolitis. No pneumonic infiltrate or pleural effusion. 3. Cirrhosis and upper abdominal varices likely reflecting sequelae of portal venous hypertension. 4. Cholelithiasis. Narrative 06/21/2024 3:41 PM SENIOR PAYROLL ADMINISTRATOR EXAM: CT CHEST PULMONARY EMBOLISM W CONTRAST LOCATION: [facility] DATE: 06/21/2024 INDICATION: SOB, elevated dimer, eval [...] CT CHEST PULMONARY EMBOLISM W CONTRAST LOCATION: [facility] DATE: 06/21/2024 INDICATION: SOB, elevated dimer, eval [...] bronchial wallthickening and endobronchial mucus impaction. Minimal [id number]. Mild upper lobar predominant emphysema. No pneumonicconsolidation [...] Chest Port 1 View (06/21/2024 2:18 PM SENIOR PAYROLL ADMINISTRATOR) Anatomical Region Laterality Modality Chest Digital Radiogra phy 06/21/2024 2:18 PM SENIOR PAYROLL ADMINISTRATOR Impressions 06/21/2024 2:25 PM SENIOR PAYROLL ADMINISTRATOR IMPRESSION: No focal airspace opacities, pleural effusion or pneumothorax. Normal heart size. Hyperinflated lungs. Stable small metallic fragment in the right chest wall. Narrative 06/21/2024 2:25 PM SENIOR PAYROLL ADMINISTRATOR EXAM: XR CHEST PORT 1 VIEW LOCATION: [facility] DATE: 06/21/2024 INDICATION: SOB COMPARISON: 07/17/2023 Procedure Note Rekha Moseley MD - 06/21/2024 EXAM: XR CHEST PORT 1 VIEW LOCATION: [facility] DATE: 06/21/2024 INDICATION: SOB COMPARISON: 07/17/2023 IMPRESSION: No focal airspace opacities, pleural effusion or pneumothorax.Normal heart size. Hyperinflated lungs. Stable small metallic fragment inthe right chest wall. us Kartik Valencia MD [facility] ORDER TELLY Final Result * Influenza A/B, RSV and SARS-CoV2 PCR (COVID-19) Nasopharyngeal (06/21/2024 1:36 PM SENIOR PAYROLL ADMINISTRATOR) Pathologist [facility] Influenza A PCR Negative Negative 06/21/2024 2:29 PM SENIOR PAYROLL ADMINISTRATOR LABORATORY Influenza B PCR Negative Negative 06/21/2024 2:29 PM SENIOR PAYROLL ADMINISTRATOR LABORATORY RSV PCR Negative Negative 06/21/2024 2:29 PM SENIOR PAYROLL ADMINISTRATOR LABORATORY SARS CoV2 PCR Negative Negative 06/21/2024 2:29 PM SENIOR PAYROLL ADMINISTRATOR LABORATORY Comment:NEGATIVE: SARS-CoV-2 (COVID-19) RNA not detected, presumed negative. Swab NASOPHARYNGEAL STRUCTURE / Unknown Non-blood Collection / Unknown 06/21/2024 1:36 PM SENIOR PAYROLL ADMINISTRATOR 06/21/2024 1:41 PM SENIOR PAYROLL ADMINISTRATOR [facility] LABORATORY - 06/21/2024 2:29 PM SENIOR PAYROLL ADMINISTRATOR Testing was performed using the Xpert Xpress CoV2/Flu/RSV Assay on the [employer] GeneXpert Instrument. This test should be ordered [...] management. This test was validated by the [facility]erral[facility]. These laboratories are certified under the Clinical Laboratory Improvement Amendments of 1988 (CLIA-88) as qualified to perfom high complexity laboratory testing. Kartik Valencia MD LAB - MICRO GENERAL ORDERABL ES Final Result [facility] Lab [address] Lab (1st floor, no room number) [place] [address], [facility] * Extra Red Top Tube (06/21/2024 1:31 PM SENIOR PAYROLL ADMINISTRATOR) Hold Specimen [facility] 06/21/2024 2:46 PM SENIOR PAYROLL ADMINISTRATOR [facility] LABORATORY Blood BLOOD SPECIMEN / Unknown Venipuncture / Unknown 06/21/2024 1:31 PM SENIOR PAYROLL ADMINISTRATOR 06/21/2024 1:42 PM SENIOR PAYROLL ADMINISTRATOR Buck Gutiérrez MD LAB - BLOOD ORDERABLES Final Result Performing Organization Address City/[facility]/ZIP Co de Phone Number [facility] Lab [address] Lab (1st floor, no room number) [place] [address], [facility] * Extra Blue Top Tube (06/21/2024 1:31 PM SENIOR PAYROLL ADMINISTRATOR) Hold Specimen [facility] 06/21/2024 2:46 PM SENIOR PAYROLL ADMINISTRATOR LABORATORY Blood BLOOD SPECIMEN / Unknown Venipuncture / Unknown 06/21/2024 1:31 PM SENIOR PAYROLL ADMINISTRATOR 06/21/2024 1:42 PM SENIOR PAYROLL ADMINISTRATOR Buck Gutiérrez MD LAB - BLOOD ORDERABLES Final Result [facility] Lab [address] Lab (1st floor, no room number) [place] [address], [facility] * (ABNORMAL) Lactic acid whole blood with 1x repeat in 2 hr when >2 (06/21/2024 1:31 PM SENIOR PAYROLL ADMINISTRATOR) [facility] Lactic Acid, Initial 3.6(H) 0.7 - 2.0 mmol/L 06/21/2024 1:49 PM SENIOR PAYROLL ADMINISTRATOR [facility] LABORATORY Blood BLOOD SPECIMEN / Unknown Venipuncture / Unknown 06/21/2024 1:31 PM SENIOR PAYROLL ADMINISTRATOR 06/21/2024 1:41 PM SENIOR PAYROLL ADMINISTRATOR us Kartik Valencia MD LAB - BLOOD ORDERABLES Final Result [facility] LABORATORY [facility] Acute [facility] Lab [address] [facility] [address] [facility] Lab (1st floor, no room number) [place] [address] * (ABNORMAL) CBC with platelets and differential (06/21/2024 1:31 PM SENIOR PAYROLL ADMINISTRATOR) [facility] WBC Count 5.2 4.0 - 11.0 10e3/uL 06/21/2024 2:04 PM SENIOR PAYROLL ADMINISTRATOR [facility] LABORATORY RBC Count 4.91 4.40 - 5.90 10e6/uL 06/21/2024 2:04 PM SENIOR PAYROLL ADMINISTRATOR [facility] LABORATORY Hemoglobin 15.1 13.3 - 17.7 g/dL 06/21/2024 2:04 PM SENIOR PAYROLL ADMINISTRATOR [facility] LABORATORY Hematocrit 44.6 40.0 - 53.0 % 06/21/2024 2:04 PM SENIOR PAYROLL ADMINISTRATOR [facility] LABORATORY MCV 91 78 - 100 fL 06/21/2024 2:04 PM SENIOR PAYROLL ADMINISTRATOR [facility] LABORATORY MCH 30.8 26.5 - 33.0 pg 06/21/2024 2:04 PM SENIOR PAYROLL ADMINISTRATOR [facility] LABORATORY MCHC 33.9 31.5 - 36.5 g/dL 06/21/2024 2:04 PM SENIOR PAYROLL ADMINISTRATOR [facility] LABORATORY RDW 15.7(H) 10.0 - 15.0 % 06/21/2024 2:04 PM SENIOR PAYROLL ADMINISTRATOR [facility] LABORATORY Platelet Count 137(L) 150 - 450 10e3/uL 06/21/2024 2:04 PM SENIOR PAYROLL ADMINISTRATOR [facility] LAB[facility]AT[facility] % Neutrophils 44 % 06/21/2024 2:04 PM SENIOR PAYROLL ADMINISTRATOR [facility] LABORAT[facility] % Lymphocytes 24 % 06/21/2024 2:04 PM SENIOR PAYROLL ADMINISTRATOR [facility] LAB[facility]AT[facility] % Monocytes 14 % 06/21/2024 2:04 PM SENIOR PAYROLL ADMINISTRATOR [facility] LABORATORY % Eosinophils 15 % 06/21/2024 2:04 PM SENIOR PAYROLL ADMINISTRATOR [facility] LABORAT[facility] % Basophils 3 % 06/21/2024 2:04 PM SENIOR PAYROLL ADMINISTRATOR [facility] LABORATORY % Immature Granulocytes 0 % 06/21/2024 2:04 PM SENIOR PAYROLL ADMINISTRATOR [facility] LABORATORY NRBCs per 100 WBC 0 <1 /100 025 2:04 PM SENIOR PAYROLL ADMINISTRATOR [facility] LABORATORY Absolute Neutrophils 2.3 1.6 - 8.3 10e3/uL 06/21/2024 2:04 PM SENIOR PAYROLL ADMINISTRATOR [facility] LABORATORY Absolute Lymphocytes 1.2 0.8 - 5.3 10e3/uL 06/21/2024 2:04 PM SENIOR PAYROLL ADMINISTRATOR [facility] LABORATORY Absolute Monocytes 0.7 0.0 - 1.3 10e3/uL 06/21/2024 2:04 PM SENIOR PAYROLL ADMINISTRATOR [facility] LABORATORY Absolute Eosinophils 0.8(H) 0.0 - 0.7 10e3/uL 06/21/2024 2:04 PM SENIOR PAYROLL ADMINISTRATOR [facility] LABORATORY Absolute Basophils 0.1 0.0 - 0.2 10e3/uL 06/21/2024 2:04 PM SENIOR PAYROLL ADMINISTRATOR [facility] LABORATORY Absolute Immature Granulocytes 0.0 <=0.4 10e3/uL 06/21/2024 2:04 PM SENIOR PAYROLL ADMINISTRATOR [facility] LABORATORY Absolute NRBCs 0.0 10e3/uL 06/21/2024 2:04 PM SENIOR PAYROLL ADMINISTRATOR [facility] LABORATORY Blood BLOOD SPECIMEN / Unknown Venipuncture / Unknown 06/21/2024 1:31 PM SENIOR PAYROLL ADMINISTRATOR 06/21/2024 1:42 PM SENIOR PAYROLL ADMINISTRATOR us Kartik Valencia MD LAB - BLOOD ORDERABLES Final Result RH LABORATORY [facility] Acute Care Lab [address] Lab (1st floor, no room number) [place] [address], [facility] * Nt probnp inpatient (BNP) (06/21/2024 1:31 PM SENIOR PAYROLL ADMINISTRATOR) Pathologist [facility] N terminal Pro BNP Inpatient 56 0 - 900 pg/mL 06/21/2024 2:45 PM SENIOR PAYROLL ADMINISTRATOR [facility] LABORATORY Comment: Reference range shown and [...] Unknown Venipuncture / Unknown 06/21/2024 1:31 PM SENIOR PAYROLL ADMINISTRATOR 06/21/2024 1:42 PM SENIOR PAYROLL ADMINISTRATOR us Kartik Valencia MD LAB - BLOOD ORDERABLES Final Result RH LABORATORY [facility] Lab [address] [facility] Lab (1st floor, no room number) [place] [address] * (ABNORMAL) D dimer quantitative (06/21/2024 1:31 PM SENIOR PAYROLL ADMINISTRATOR) [facility] D-Dimer Quantitative 1.06(H) 0.00 - 0.50 ug/mL FEU 06/21/2024 2:26 PM SENIOR PAYROLL ADMINISTRATOR [facility] LABORATORY Blood BLOOD SPECIMEN / Unknown Venipuncture / Unknown 06/21/2024 1:31 PM SENIOR PAYROLL ADMINISTRATOR 06/21/2024 1:42 PM SENIOR PAYROLL ADMINISTRATOR Narrative [facility] LABORATORY - 06/21/2024 2:26 PM SENIOR PAYROLL ADMINISTRATOR This D-dimer assay is intended for use [...] out pulmonary embolism: The ADJUST-PE Study. DEANNA 2014;311:5472-5649.; HJ Kin et al. Diagnostic accuracy of conventional or age adjusted D-dimer cutoff values in older patients with suspected venous thromboembolism. Systemic review and meta-analysis. BMJ 2013:346:f2492. us Kartik Valencia MD LAB - BLOOD ORDERABLES Final Result RH LABORATORY [facility] Lab [address] [facility] Lab (1st floor, no room number) [place] [address], [facility] * (ABNORMAL) Comprehensive metabolic panel (06/21/2024 1:31 PM SENIOR PAYROLL ADMINISTRATOR) Sodium 138 135 - 145 mmol/L 06/21/2024 2:08 PM [facility] LABORATORY Potassium 3.9 3.4 - 5.3 mmol/L 06/21/2024 2:08 PM [facility] LABOR[facility] Carbon Dioxide (CO2) 21(L) 22 - 29 mmol/L 06/21/2024 2:08 PM [facility] Anion Gap 14 7 - 15 mmol/L 06/21/2024 2:08 PM [facility] Urea Nitrogen 8.1 8.0 - 23.0 mg/dL 06/21/2024 2:08 PM [facility] Creatinine 0.79 0.67 - 1.17 mg/dL 06/21/2024 2:08 PM [facility] GFR Estimate >90 >60 mL/min/1.7 3m2 06/21/2024 2:08 PM [facility] LAB[facility] Comment:eGFR calculated usin 2020 CKD-EPI equation. Calcium 8.7(L) 8.8 - 10.4 mg/dL 06/21/2024 2:08 PM [facility] LAB[facility] Comment:Reference intervals for this test were updated on 12/13/2023 to reflect our healthy population more accurately. There may be differences in the flagging of prior results with similar values performed with this method. Those prior results can be interpreted in the context of the updated reference intervals. Chloride 103 98 - 107 mmol/L 06/21/2024 2:08 PM [facility] Glucose 106(H) 70 - 99 mg/dL 06/21/2024 2:08 PM SENIOR PAYROLL ADMINISTRATOR [facility] LABORATORY Alkaline Phosphatase 134 40 - 150 U/L 06/21/2024 2:08 PM SENIOR PAYROLL ADMINISTRATOR [facility] LABORATORY AST 71(H) 0 - 45 U/L 06/21/2024 2:08 PM SENIOR PAYROLL ADMINISTRATOR [facility] LABORATORY ALT 42 0 - 70 U/L 06/21/2024 2:08 PM SENIOR PAYROLL ADMINISTRATOR [facility] LABORATORY Protein Total 7.5 6.4 - 8.3 g/dL 06/21/2024 2:08 PM SENIOR PAYROLL ADMINISTRATOR [facility] LABORATORY Albumin 3.7 3.5 - 5.2 g/dL 06/21/2024 2:08 PM SENIOR PAYROLL ADMINISTRATOR LABORATORY Bilirubin Total 1.7(H) <=1.2 mg/dL 06/21/2024 2:08 PM SENIOR PAYROLL ADMINISTRATOR LABORATORY Blood BLOOD SPECIMEN / Unknown Venipuncture / Unknown 06/21/2024 1:31 PM SENIOR PAYROLL ADMINISTRATOR 06/21/2024 1:42 PM SENIOR PAYROLL ADMINISTRATOR us Kartik Valencia MD LAB - BLOOD ORDERABLES Final Result [facility] LABORATORY [facility] Lab [address] [facility] Lab (1st floor, no room number) [place] [address] * (ABNORMAL) Blood gas venous (06/21/2024 1:31 PM SENIOR PAYROLL ADMINISTRATOR) pH Venous 7.46(H) 7.32 - 7.43 06/21/2024 1:48 PM SENIOR PAYROLL ADMINISTRATOR [facility] LABORATORY pCO2 Venous 34(L) 40 - 50 mm Hg 06/21/2024 1:48 PM SENIOR PAYROLL ADMINISTRATOR [facility] LABORATORY pO2 Venous 44 25 - 47 mm Hg 06/21/2024 1:48 PM SENIOR PAYROLL ADMINISTRATOR [facility] LAB[facility]ATORY Bicarbonate Venous 24 21 - 28 mmol/L 06/21/2024 1:48 PM SENIOR PAYROLL ADMINISTRATOR [facility] LABORATORY Base Excess/Deficit Venous 0.7 -3.0 - 3.0 mmol/L 06/21/2024 1:48 PM SENIOR PAYROLL ADMINISTRATOR [facility] LABORATORY FIO2 21 VIRGEN 06/21/2024 1:48 PM SENIOR PAYROLL ADMINISTRATOR [facility] LAB[facility]ATORY Oxyhemoglobin Venous 78(H) 70 - 75 % 06/21/2024 1:48 PM SENIOR PAYROLL ADMINISTRATOR [facility] LAB[facility]AT[facility] O2 Sat, Venous 79.5(H) 70.0 - 75.0 % 06/21/2024 1:48 PM SENIOR PAYROLL ADMINISTRATOR [facility] LAB[facility] Blood, venous BLOOD SPECIMEN / Unknown Venipuncture / Unknown 06/21/2024 1:31 PM SENIOR PAYROLL ADMINISTRATOR 06/21/2024 1:41 PM SENIOR PAYROLL ADMINISTRATOR Narrative [facility] LABORATORY - 06/21/2024 1:48 PM SENIOR PAYROLL ADMINISTRATOR In healthy individuals, oxyhemoglobin (O2Hb) and oxygen saturation (SO2) are approximately equal. In the presence of dyshemoglobins, oxyhemoglobin can be considerably lower than oxygen saturation. us Kartik Valencia MD LAB - BLOOD ORDERABLES Final Result LABORATORY [facility] Lab [address] [facility] Lab (1st floor, no room number) [place] [address] * EKG 12-lead, tracing only (06/21/2024 1:24 PM SENIOR PAYROLL ADMINISTRATOR) Systolic Blood Pressure mmHg RADIOLOGY RESULTS Diastolic Blood Pressure mmHg RADIOLOGY RESULTS Ventricular Rate 95 BPM RAD IOLOGY RESULTS Atrial Rate 95 BPM RADIOLOG Y RESULTS PA Interval 160 ms RADIOLOG Y RESULTS QRS Duration 72 ms RADIOLO GY RESULTS QT 352 ms RADIOLOGY RESULTS QTc 442 ms RADIOLOGY RESULTS P [place] 64 degrees RADIOLOGY RESULTS R AXIS 44 degrees RADIOLOGY RESULTS T [place] 78 degrees RADIOLOGY RESULTS Interpretation ECG Sinus rhythm Septal infarct (cited on or before 17-Jul-2023) Abnormal ECG When compared with ECG of 17-Jul-2023 10:13, No significant change was found Unconfirmed report - interpretation of this ECG is computer generated - see medical record for final interpretation Confirmed by - EMERGENCY ROOM, PHYSICIAN ([id number]), development editor Natanael Brandon ([id number]) on 06/21/2024 1:36:53 PM RADIOLOGY RESULTS 06/21/2024 1:24 PM SENIOR PAYROLL ADMINISTRATOR 06/21/2024 1:36 PM SENIOR PAYROLL ADMINISTRATOR us Buck Gutiérrez MD ECG ORDERABLES Edited Result - Final RADIOLOGY RESULTS * EKG Cardiac - HIM Scan (06/21/2024 12:00 AM SENIOR PAYROLL ADMINISTRATOR) 06/21/2024 us Provider Outside ECG ORDERABLES Final Result * Lipid panel reflex to direct LDL (07/18/2023 7:26 AM SENIOR PAYROLL ADMINISTRATOR) Cholesterol 108 <200 mg/dL 07/18/2023 11:34 AM SENIOR PAYROLL ADMINISTRATOR [facility] Triglycerides 31 <150 mg/dL 07/18/2023 11:34 AM SENIOR PAYROLL ADMINISTRATOR [facility] Direct Measure HDL 57 >=40 mg/dL 07/18/2023 11:34 AM SENIOR PAYROLL ADMINISTRATOR [facility] LDL Cholesterol Calculated 45 <=100 mg/dL 07/18/2023 11:34 AM SENIOR PAYROLL ADMINISTRATOR [facility] Non HDL Cholesterol 51 <130 mg/dL 07/18/2023 11:34 AM SENIOR PAYROLL ADMINISTRATOR [facility] Patient Fasting > 8hrs? Unknown 07/18/2023 11:34 AM SENIOR PAYROLL ADMINISTRATOR [facility] Blood STRUCTURE OF RIGHT UPPER LIMB / Unknown Venipuncture / Unknown 07/18/2023 7:26 AM SENIOR PAYROLL ADMINISTRATOR 07/18/2023 7:31 AM SENIOR PAYROLL ADMINISTRATOR Narrative [facility] - 07/18/2023 11:34 AM SENIOR PAYROLL ADMINISTRATOR Cholesterol Desirable: <200 mg/dL Triglycerides Normal: Less [...] BLOOD ORDERABLES F inal Result [facility] [place] [facility] [address] [facility] [address], [address] [place] [address], [facility] [phone] [facility] [address] [facility] Lab (1st floor, no room number) [place] [address], [facility] [phone] from Last 3 Months or Most Recently Relevant to Health Maintenance Insurance MEDICARE MEDICARE OTHER Member Subscriber Plan / Payer (Ef fective 2005-Present) Name:Myke Aggarwal Relation to Subscriber:Employee Name:[id number] Subscriber ID:[id number] Date of :1955 x35 (Home) Address: [address] [place] [address] Payer ID:[id number] Type:Not on file Address: [address] [place] [address] [place] [address] Advance Directives For more information, please contact: [phone] * Full Code (Latest Code Status on [...] bernice nt/ legal decision maker Care Teams Photogrammetric Surveyor Relationship Specialty Start Date End Date [facility], [address] [address] PCP - General 06/21/24
--- NOTE | 2024-09-19 11:41 | ED.NURSE ---
Upon explaining medications to patient he reports he will not have money to purchase them. Patient was then prescribed three formulary medications available at [facility].
== END 2024-09-19 11:43 | disposition home or self-care (01) ==
PROVIDERS: Emergency Provider Emergency Medicine Emergency Medical Services
DX: J45.901 Unspecified asthma with (acute) exacerbation (principal); Z72.0 Tobacco use
CPT/HCPCS: 71046; 99284; J1100

== ENCOUNTER 2025-03-26 05:12 | Emergency (ER) | payer SELFPAY ==
[2025-03-26] VITALS (13 sets, daily range): BP systolic 153–160; BP diastolic 85–88; PULSE 89–104; RESP 8–27; TEMP 37.2; O2SAT 89–95; BMI 22.2
--- OUTSIDE RECORDS SUMMARY | 2025-03-26 05:14 | XMS_ITS | Clinical Summary ---
Author Organization [employer] [facility] Address [address] [place] [address] Care Team Providers Care Bunk Assembler Name Role Phone Pcp, No Primary Care [...] Team: Raimundo House as PCP - General [phone] Phan Cox RN, Population Health Manager [phone] Vania Stanton WiLucas Project Management Engineer [phone]- address: [facility] [employer], [address] [address] Bharti pharmaceutical salesperson at ethnographic materials conservator office [phone] And Jc [phone] Singh [phone]-[facility] Neurology Dr. Curiel - [facility] neurology clinic [phone], fax [phone], billing [phone] Silva Starks, Adult Protection family preservation caseworker [phone](direct) [employer] Service main # [phone] address is [address] [place], [place]. My Care Plan Problem: Under excess stress due to unemployment and awaiting social security disability Goal: System or plan in place to reduce stress Plan: Contact Vania Mack social media marketing manager Responsibility: Myke and care advocatePhan Target Date: 06/22/2010 Achieved Date: Date and Name of Copy Holder: PHAN COX RN .................... 06/08/2010 3:03 PM Problem: Unable to afford medical care or medications Goal: Able to afford medical care or medications Plan: Contact [facility] social media marketing manager, Vania Mack, set up appointment with Dr. Singh for F/U on Jul 06, 2010 Go to [facility] billing dept, discuss financial situation and negotiate a plan. Responsibility: Patient Target Date: 06/29/2010 Achieved Date: 08/19/2010 Date and Name of Copy Holder: PHAN COX RN .................... 06/15/2010 3:03 PM Problem: In unhappy or unsafe residential situation Goal: System or plan in place to improve residential situation Plan: Contact social media marketing managerVania at [employer]., contact Silva Starks [facility] [phone] Responsibility: Myke and care advocatePhan; Myke to contact Silva 09/03/10 9:45 am Target Date: 09/03/10 Discussed case with adult protection worker, Silva Starks. She will try to contact patient by letter. She also asks that when patient comes into clinic on September 03 at 9:45 am for F/U that Myke call her at [phone] to speak with her.PHAN COX RN .................... 08/03/2010 4:34 PM Achieved Date: Date and Name of Copy Holder: PHAN COX RN .................... 06/08/2010 3:03 PM Problem: Does not have Advance Care Plan in place Goal: Advance Care Plan on file Plan: Complete Health Care Directive Responsibility: Myke and care advocatePhan Target Date: 08/26/2010 Achieved Date: 06/15/2010 Date and Name of Copy Holder: PHAN COX RN .................... 06/08/2010 3:03 PM My Emergency Plan Medical - [facility] [phone] My Care Team Patient Care Team: Raimnudo House as PCP - General [phone] Phan Cox RN- care advocate [phone] My Care Plan Problem: Blood pressure too [...] Achieved Date: 06/15/2010 Date and Name of Copy Holder: PHAN COX RN .................... 06/08/2010 3:08 PM Problem: Meal Planning Goal: Understands low sodium diet Plan: Discuss knowledge of low Na+ diet Responsibility: Myke and care advocatehair or beauty salon manager Date: 06/08/2010 Achieved Date: 06/08/2010 Date and Name of Copy Holder: PHAN COX RN .................... 06/08/2010 3:08 PM Date and Name of Copy Holder: PHAN COX RN .................... 06/08/2010 3:08 PM Call Raimundo House MD at [phone] If Blood Pressure is 180/100 or greater. [...] limbs. Assessment & Plan (06/15/2010 2:53 PM REPAIR SERVICER): Advance Care Planning: Disease-specific Session Myke Aggarwal is a Medical Home patient at [facility]. Advance care planning discussions were completed with [...] about this. Understanding of Illness and Disease [place]: Myke identifies his medical condition as depressing [...] real social. I'd like to back to [employer]. Quality of Life: The following [...] myself. HIGH SURVIVAL; LOW FUNCTIONAL STATUS: If Mkye had a serious complication and had a [...] Myke.) HIGH SURVIVAL; LOW COGNITIVE STATUS: If yMke had a serious complication and had a [...] would benefit from: Financial Planning-has financial social media marketing manager through [employer] - Vania Soria. Social Work - [employer] Vania Soria Care Management - Phan Cox RN, [facility] Workforce- contact: Deysi Kim Is working with ethnographic materials conservator regarding social security disability. 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 11/28/2009 05/07/2010 [...] on file Legal Sex Male 7:24 AM REPAIR SERVICER Gender Identity Not on file Sexual Orientation Not on file Occupation Industry Job Start Date Job End Date unemp Not on file Not on file Not on file Obstetrics History Last Filed Vital Signs Vital Sign Reading Time Taken Comments Blood Pressure 172/94 04/22/2014 1:34 PM REPAIR SERVICER not taking bp med Pulse 78 04/22/2014 1:34 PM REPAIR SERVICER Temperature 36.4 C (97.6 F) 07/02/2010 12:08 PM REPAIR SERVICER Respiratory Rate - - Oxygen Saturation 95% 11/28/2009 10: 57 AM CDT Inhaled Oxygen Concentration - - Weight 67 kg (147 lb 12.8 oz) 04/22/2014 1:34 PM REPAIR SERVICER Height 171.5 cm (5' 7.5) 05/07/2010 1: 04 PM REPAIR SERVICER Body Mass Index 22.81 05/07/2010 1:04 PM REPAIR SERVICER Plan of Treatment Health Maintenance Due Date Last Done Comments Depression screening for age 12+ 1969 BMI (ht and wt on same day) for age 18+ 11/04/1975 Colonoscopy through age 75 2002 Lipids for age 45-75 2002 Pneumococcal series for age 50+ (1 of 1 - PCV) 11/04/2007 Zoster (shingles) series for age 50+ (1 of 2) 11/04/2007 Tetanus booster 05/31/2019 05/31/2009 COVID-19 vaccine series ( - season) 2025 Influenza Vaccine (#1) 2025 04/07/2010 RSV vaccine for adults or (1 - 1-dose 75+ series) 2032 Hepatitis C screening for ag e 18-79 Completed 2009, 2009 Hepatitis B series for 19+ Aged Out N o longer eligible based on patient's age to complete this topic Procedures Procedure Name Priority Date/Time Associated Diagnosis Comments HCV RNA QUANT Routine 2009 3:45 PM CDT Hepatitis C from Last 3 Months or Most Recently Relevant to Health Maintenance Results * (ABNORMAL) HCV RNA RT-PCR,QNT 47380 (2009 3:45 PM CDT) HCV RNA RT-PCR Detected( A) [facility] NUMBER DETECTED 237,000 IU/mL [facility] SOURCE Blood [facility] Blood specimen (specimen) BLOOD SPECIMEN / Unknown 2009 3:45 PM CDT 2009 3:38 PM CDT Narrative [facility] - 11/06/2009 3:40 PM CDT Method: Stanislav Taqman HCV Test us Jose Miguel Singh MD SEND OUTS Final Res ult [facility] [place]NAL ZIP [address] [place] [address] from Last 3 Months or Most Recently Relevant to Health Maintenance Advance Directives Documents on File Type Date Recorded Patient Rubber Goods Tester Water Expl anation Healthcare Directive 06/15/2010 HEALTH CARE DIRECTIVE, [facility], 06/15/10 Care Teams Bunk Assembler Relationship Specialty Start Date End Date Pcp, No . PCP - General 06/07/24
--- OUTSIDE RECORDS SUMMARY | 2025-03-26 05:14 | XMS_ITS | Clinical Summary ---
Author Organization [place] Address [facility] [place] [address] Care Team Providers Care Broommaking Supervisor Name Role Phone [facility], [facility] Primary Care Provider Allergies No known active [...] x 10 days then stop 50 tablet 5 Active tiotropium (SPIRIVA RESPIMAT) 2.5 MCG/ACT inhalerIndicatio [...] persistent asthma with acute exacerbati on 07/17/2023 Social History Tobacco Use Types Packs/Day Years Used Date Smoking Tobacco: Never Assessed Adolescent Education Answer Date Record ed Getting School Help Needed Not on file 07/17 Sex and Gender Information Value Date Recorded Sex Assigned at Not on file Legal Sex Male 3:43 AM OPTICAL FABRICATION TECHNICIAN Gender Identity Not on file Sexual Orientation Not on file Last Filed Vital Signs Vital Sign Reading Time Taken Comments Blood Pressure 153/73 06/22/2024 3:32 PM OPTICAL FABRICATION TECHNICIAN Pulse 102 06/22/2024 3:32 PM OPTICAL FABRICATION TECHNICIAN Temperature 36.7 C (98 F) 06/22/2024 3:32 PM OPTICAL FABRICATION TECHNICIAN Respiratory Rate 20 06/22/2024 3:32 PM OPTICAL FABRICATION TECHNICIAN Oxygen Saturation 92% 06/22/2024 3:32 PM OPTICAL FABRICATION TECHNICIAN Inhaled Oxygen Concentration - - Weight 65.4 kg (144 lb 2.9 oz) 06/22/2024 12:26 PM OPTICAL FABRICATION TECHNICIAN Height 177.8 cm (5' 10) 06/22/2024 12:26 PM OPTICAL FABRICATION TECHNICIAN Body Mass Index 20.69 06/22/2024 12:26 PM OPTICAL FABRICATION TECHNICIAN Plan of Treatment Health Maintenance Due Date Last Done Comments ADVANCE CARE PLANNING 1955 ANNUAL REVIEW OF HM ORDERS [address] COPD ACTION PLAN [address] COLONOGRAPHY 1957 FIT 1957 FLEX SIG 1955 SPIROMETRY 1957 sDNA (Cologuard) 1955 COLONOSCOPY 11/04/1967 COLORECTAL CANCER SCREENING 11/04/1967 PNEUMOCOCCAL VACCINE 50+ YEARS (1 of 2 - PCV) 1976 RSV VACCINE (1 - Risk 50-74 years 1-dose series) 11/04/2007 ZOSTER VACCINE (1 of 2) 11/04/2007 DTAP/TDAP/TD VACCINE (1 - Tdap) 06/01/2009 05/31/2009 FALL RISK ASSESSMENT 2022 MEDICARE ANNUAL WELLNESS VISIT 2022 PHQ-2 (once per calendar year) 2024 COVID-19 VACCINE (1 - 2024- season) 2025 INFLUENZA VACCINE (#1) 2025 04/07/2010 DIABETES SCREENING 06/22/2027 06/22/2024, 0 06/21/2024, 07/19/2023, Additional history exists LIPID 07/18/2028 07/18/2023 HEPATITIS A VACCINE Completed 10/16/2007, 03/13/2007, 02/10/2007 HEPATITIS B VACCINE Completed 10/16/2007, 03/13/2007, 02/10/2007 HEPATITIS C SCREENING Completed 2009 HPV VACCINE (No Doses Required) Completed MENINGITIS VACCINE Aged Out No longer eligible based on patient's age to complete this topic Procedures Procedure Name Priority Date/Time Associated Diagnosis Comments BASIC METABOLIC PANEL STAT 06/22/2024 8:27 AM OPTICAL FABRICATION TECHNICIAN LIPID REFLEX TO DIRECT LDL PANEL Routine 07/18/2023 7:26 AM OPTICAL FABRICATION TECHNICIAN from Last 3 Months or Most Recently Relevant to Health Maintenance Results * (ABNORMAL) Basic metabolic panel (06/22/2024 8:27 AM OPTICAL FABRICATION TECHNICIAN) Sodium 133(L) 135 - 145 mmol/L 06/22/2024 9:14 AM OPTICAL FABRICATION TECHNICIAN [facility] Potassium 4.1 3.4 - 5.3 mmol/L 06/22/2024 9:14 AM OPTICAL FABRICATION TECHNICIAN [facility] Chloride 103 98 - 107 mmol/L 06/22/2024 9:14 AM OPTICAL FABRICATION TECHNICIAN [facility] Carbon Dioxide (CO2) 19(L) 22 - 29 mmol/L 06/22/2024 9:14 AM OPTICAL FABRICATION TECHNICIAN LABORATORY Anion Gap 11 7 - 15 mmol/L 06/22/2024 9:14 AM OPTICAL FABRICATION TECHNICIAN LABORATORY Urea Nitrogen 11.0 8.0 - 23.0 mg/dL 06/22/2024 9:14 AM OPTICAL FABRICATION TECHNICIAN LABORATORY Creatinine 0.68 0.67 - 1.17 mg/dL 06/22/2024 9:14 AM OPTICAL FABRICATION TECHNICIAN LABORATORY GFR Estimate >90 >60 mL/min/1.7 3m2 06/22/2024 9:14 AM OPTICAL FABRICATION TECHNICIAN LABORATORY Comment:eGFR calculated usin 2020 CKD-EPI equation. Calcium 8.6(L) 8.8 - 10.4 mg/dL 06/22/2024 9:14 AM OPTICAL FABRICATION TECHNICIAN LABORATORY Comment:Reference intervals for this test were updated on 12/13/2023 to reflect our healthy population more accurately. There may be differences in the flagging of prior results with similar values performed with this method. Those prior results can be interpreted in the context of the updated reference intervals. Glucose 112(H) 70 - 99 mg/dL 06/22/2024 9:14 AM OPTICAL FABRICATION TECHNICIAN LABORATORY Blood STRUCTURE OF LEFT HAND / Unknown Venipuncture / Unknown 06/22/2024 8:27 AM OPTICAL FABRICATION TECHNICIAN 06/22/2024 8:33 AM OPTICAL FABRICATION TECHNICIAN Мария Woods PA-C LAB - BLOOD ORDERABLES F inal Result LABORATORY [facility] [address] Lab (1st floor, no room number) [place] [address], [facility] * Lipid panel reflex to direct LDL (07/18/2023 7:26 AM OPTICAL FABRICATION TECHNICIAN) Cholesterol 108 <200 mg/dL 07/18/2023 11:34 AM OPTICAL FABRICATION TECHNICIAN [facility] Triglycerides 31 <150 mg/dL 07/18/2023 11:34 AM OPTICAL FABRICATION TECHNICIAN [facility] Direct Measure HDL 57 >=40 mg/dL 07/18/2023 11:34 AM OPTICAL FABRICATION TECHNICIAN [facility] LDL Cholesterol Calculated 45 <=100 mg/dL 07/18/2023 11:34 AM OPTICAL FABRICATION TECHNICIAN [facility] Non HDL Cholesterol 51 <130 mg/dL 07/18/2023 11:34 AM OPTICAL FABRICATION TECHNICIAN [facility] Patient Fasting > 8hrs? Unknown 07/18/2023 11:34 AM OPTICAL FABRICATION TECHNICIAN [facility] Blood STRUCTURE OF RIGHT UPPER LIMB / Unknown Venipuncture / Unknown 07/18/2023 7:26 AM OPTICAL FABRICATION TECHNICIAN 07/18/2023 7:31 AM OPTICAL FABRICATION TECHNICIAN Narrative [facility] - 07/18/2023 11:34 AM OPTICAL FABRICATION TECHNICIAN Cholesterol Desirable: <200 mg/dL Triglycerides Normal: Less [...] Greater than or equal to 220 mg/dL us Мария Woods PA-C LAB - BLOOD ORDERABLES F inal Result [facility] [address] [facility] [address], [address] [place] [address], [facility] [phone] [facility] [address] Lab (1st floor, no room number) [place] [address], [facility] [phone] from Last 3 Months or Most Recently Relevant to Health Maintenance Insurance MEDICARE MEDICARE * Guarantor: [id number] Account Type Relation to Patient Date of Phone Billing Address Worker's Compensation Employer [phone] (Home) [address] [place], [place] [address] OTHER Member Subscriber Plan / Payer (Ef fective 2005-Present) Name:Myke Aggarwal Relation to Subscriber:Employee Name:[id number] TA Subscriber ID:[id number] Date of :1955 x35 (Home) Address: [address] [place] [address] Payer ID:[id number] Type:Not on file Address: [address] [place], [place] [address] HANNA [address] [place] [address] Advance Directives For more information, please contact: [phone] * Full Code (Latest Code Status on [...] bernice nt/ legal decision maker Care Teams Broommaking Supervisor Relationship Specialty Start Date End Date [facility], [address] [address] PCP - General 06/21/24
--- NOTE | 2025-03-26 05:33 | CRLHL7_ITS ---
For Patients: As a result of the Century Cures Act, medical imaging exams and procedure reports are released immediately into your electronic medical record. You may view this report before your referring provider. If you have questions, please contact your health care provider. INDICATION: Dyspnea. COPD. TECHNIQUE: Chest 2 views. COMPARISON: September 19, 2024. FINDINGS: Cardiovascular and mediastinum: Heart size is normal. Unremarkable mediastinum. Lungs and pleural spaces: Lungs are clear. Lung hyperinflation consistent with COPD. No sign of infiltrate or mass. No sign of pleural effusion. No pneumothorax. Bones and soft tissues: No significant findings. IMPRESSION: No acute findings and no change compared to the prior exam. There are COPD changes. No other specific findings to explain dyspnea. Dictated by Lake Peña MD @ 03/26/2025 5:51:41 AM (Electronically Signed)
--- NOTE | 2025-03-26 05:38 | ED_ITS ---
HPI - General Adult General Chief complaint: Shortness of Breath/Dyspnea Stated complaint: shortness of breath Time Seen by Provider: 03/26/25 05:16 Source: patient Mode of arrival: ambulatory Limitations: no limitations History of Present Illness HPI narrative: 69-year-old male with history of asthma and COPD presents to the emergency department for evaluation of shortness of breath and leg swelling. Patient co ntradicts himself multiple times in discussion of time line. Seems like the breathing has been getting more short of breath over the last month but possibly accelerated over the last 24 hours. Reports that he ran out of his maintenance inhaler but then was able to get a rescue inhaler from a friend and has tried using that with a little improvement in tried a friend's nebulizer treatment tonight with incomplete results. He has also been noticing swelling in his legs for the past month. He does not elaborate on time line. Swelling is equal and symmetric, came on gradually. No history DVT or PE. No fever, cough is nonproductive. Denies a prior history of heart failure or coronary artery disease. It looks like he was given a few days of Lasix for a similar visit in August. At that visit he was also treated with steroids and bronchodilators. Patient denies any recent falls or trauma. No chest pain, palpitations or arrhythmia. Reports his own long-term health problems are the COPD. He has multiple prescriptions for Spiriva, bronchodilators, ipratropium. It does not sound as though he is regularly using those right now. No cardiac medications or other systemic medications long-term. No known drug allergies. Does continue to use tobacco. ROS is notable for the respiratory and cardiac symptoms as above, otherwise denies times 12 systems. Related Data Home Medications ?Medication ?Instructions ?Recorded ?Confirmed albuterol sulfate 90 mcg/actuation 2 puff inhalation Q 4H PRN dyspnea 08/12/24 09/19/24 aerosol inhaler ipratropium 0.5 mg-albuterol 3 mg 3 ml inhalation Q6H PRN dyspnea 08/12/24 09/19/24 (2.5 mg base)/3 mL nebulization soln tiotropium bromide 2.5 2 puff inhalation DAILY 07/2809/19/24 mcg/actuation mist for inhalation (Spiriva Respimat) Previous Rx's ?Medication ?Instructions ?Recorded albuterol sulfate 90 mcg/actuation 2 inh inhalation Q4 -6H PRN #1 ea 09/19/24 breath activated powder inhaler furosemide 20 mg tablet (Lasix) 20 mg PO DAILY #10 tab s 09/19/24 ipratropium 0.5 mg-albuterol 3 mg 3 ml inhalation Q6H PRN #180 mL 09/19/24 (2.5 mg base)/3 mL nebulization soln methylprednisolone 4 mg tablets in See Rx Instructions PO .COMPLEX 09/19/24 a dose pack (Medrol (Evangelista)) #21 ea albuterol sulfate 90 mcg/actuation 1 inh inhalation Q6 H PRN shortness 03/26/25 aerosol inhaler of breath or wheezing #8.5 g regulo azithromycin 250 mg tablet See Rx Instructions PO .COM PLEX #6 03/26/25 tabs furosemide 20 mg tablet 20 mg PO DAILY #10 tabs 02/28 01/21 ipratropium 0.5 mg-albuterol 3 mg 3 ml inhalation Q6H PRN #90 mL 03/26/25 (2.5 mg base)/3 mL nebulization soln prednisone 20 mg tablet 20 mg PO BID 5 days #10 tabs 03/26/25 Allergies Allergy/AdvReac Type Severity Reaction Status Date / Time No Known Drug Allergies Allergy Verified 03/26/25 05:25 [facility] Social History Smoking Status: Current every day smoker What tobacco products do you use: cigarettes Smoking packs per day: 0.25 Smoking cigarettes per day: 5.0 Years smoked: 55 Smoking pack-years: 13.75 Second hand tobacco smoke exposure: Yes Non-prescribed substance use: denies use service: No Exam Const: Vital Signs, click to edit/add: Vital Signs - 24 hr 03/26/25 05:20 03/26/25 05:31 03/26/25 05:55 Temperature 98.9 F Pulse Rate 98 89 Pulse Rate [Pulse Oximeter] 104 H Respiratory Rate 26 H Blood Pressure Blood Pressure [Ri ght Upper Arm] 160/88 H Pulse Oximetry 91 94 95 Oxygen Delivery Me thod Room Air 03/26/25 06:00 03/26/25 06:07 03/26/25 06:15 Temperature Pulse Rate 98 92 96 Pulse Rate [Pulse Oximeter] Respiratory Rate 27 H 21 Blood Pressure 153/85 H Blood Pressure [Ri ght Upper Arm] Pulse Oximetry 93 93 93 Oxygen Delivery Me thod 03/26/25 06:30 03/26/25 06:45 03/26/25 07:00 Temperature Pulse Rate 90 93 92 Pulse Rate [Pulse Oximeter] Respiratory Rate 8 L 24 18 Blood Pressure Blood Pressure [Ri ght Upper Arm] Pulse Oximetry 93 91 90 Oxygen Delivery Me thod 03/26/25 07:23 Temperature Pulse Rate 102 H Pulse Rate [Pulse Oximeter] Respiratory Rate 21 Blood Pressure Blood Pressure [Ri ght Upper Arm] Pulse Oximetry 90 Oxygen Delivery Me thod Documenting provider has reviewed patient's vital signs: yes Other: Suboptimal historian but does not seem toxic. Cooperative and friendly. Lips are slightly cyanotic appearing. HENMT: Common normals: normocephalic, moist oral mucous membranes and oropharynx normal Head and scalp: normocephalic Eye: Common normals: conjunctivae normal General eye: normal appearance of both eyes Conjunctiva: conjunctiva(e) normal Neck & C-Spine: Common normals: full ROM and no lymphadenopathy Other: 6 cm JVD Resp: Other: Very poor air movement throughout. Expiration is somewhat prolonged. I do not hear any obvious wheeze or crackle but very poor air movement does impair this. Tachypneic with mildly increased work of breathing. Cardio: Common normals: regular rate, regular rhythm, S1 normal heart sound, S2 normal heart sound and no murmurs Rate: regular rate Rhythm: regular rhythm Heart sounds: S1 normal and S2 normal GI: Common normals: Normal to inspection, nondistended, normoactive bowel sounds present, soft to palpation, non-tender, no hepatosplenomegaly and no masses Palpation: soft and no hepatosplenomegaly Extremity: Other: 2+ pitting edema to upper tibia. No pal pable cords. Neuro: Speech: speech normal Motor exam: strength 5/5 throughout Psych: Appearance: grossly normal Attitude: calm Activity/motor behavior: appropriate eye contact Insight: insight good Judgement: judgment good Skin: Common normals: no rashes or lesions noted General skin exam: no rashes or lesions noted Course Course ED Course: 69-year-old male with history of COPD presenting with increased dyspnea and leg swelling after discontinuation of maintenance inhalers. I suspect that he is developing cor pulmonale and that this is the etiology of his leg swelling. Will obtain typical chest x-ray, cardiac labs. He does seem to be in a COPD exacerbation is witnessed by tachypnea and hypoxia. He is placed on s upplemental oxygen here in the ED. Will give DuoNeb, 60 of IV Solu-Medrol, 500 of azithromycin, viral swabs and typical baseline labs. Will reassess after these interventions and discuss further management after cardiac workup. May require hospitalization for initial stabilization of heart failure. Reevaluation(s) Time of Reevaluation #1: 06:59 Reevaluation #1: Patient feeling much better after nebulizer and steroid. The cardiac workup so far is seeming pretty benign. More surprising knows that his liver enzymes are quite elevated including his bilirubin. My suspicion is that this is from cirrhosis but I am concerned that there could be obstructive liver pathology. Based on the fact that he is not someone who would reliably follow up for further outpatient workup, I do recommend that we proceed with CT of the abdomen and pelvis and I have also added a lipase level here in the ED. Am concerned about underlying malignant potential. May need a liver ultrasound instead. He was agreeable to moving forward with this test here in the emergency room. Time of Reevaluation #2: 07:58 Reevaluation #2: Patient continues to feel better than arrival. Elected to give 40 of p.o. Lasix and another albuterol treatment prior to leaving because he does not have insurance right now and I do think that him picking up his medications and being able to follow through on things is tenuous. We spent a lot of time talking about his liver dysfunction. He needs to stop drinking alcohol immediately. He needs to make a follow-up appointment with a primary care provider and bring the copy of the CT report that was given to him and also his discharge paperwork to help facilitate follow-up and follow-up MRI. Patient may elect to defer this MRI until he has insurance. I suspect that he would qualify for Medicare based on his age. For the acute flare up of his COPD, will treat with 5 days of prednisone and albuterol and azithromycin. Nebs, inhaler refilled. I would also like him to restart his Spiriva but will be cost prohibitive at this time. We will hold off on that for now. I would also like him on furosemide for 10 days and then following up with his primary care towards the end of that so that we can see how effective it was. I am hoping that discontinuing alcohol will improve his hepatic flow and reduce his swelling somewhat as well. Unfortunately, it felt like patient only absorbed about 5% of what I was discussing. I think his overall ability to navigate the healthcare system is pretty low. I do have concerns regarding his follow-up and access to life saving medications. I have offered lots of refills on his inhalers at least so that he can have access to those. Alarm symptoms reviewed that would warrant ED follow-up. He verbalizes understanding and agreement of plan. Extensive written instructions provided. Vital Signs Vital signs: Initial Vital Signs Respiratory Effort Normal, Tachypnea 03/26/25 05:13 Respiratory Depth Shallow 03/26/25 05:13 Vital Signs Temperature 98.9 F 03/26/25 05:20 Pulse Rate 104 H 03/26/25 05:20 Respiratory Rate 26 H 03/26/25 05:20 Blood Pressure 160/88 H 03/26/25 05:20 Pulse Oximetry 91 03/26/25 05:20 Oxygen Delivery Method Room Air 03/26/25 05:20 Temperature 98.9 F 03/26/25 05:20 Pulse Rate 102 H 03/26/25 07:23 Respiratory Rate 21 03/26/25 07:23 Blood Pressure 153/85 H 03/26/25 06:07 Pulse Oximetry 90 03/26/25 07:23 Oxygen Delivery Method Room Air 03/26/25 05:20 Medications Administered Medications: Discontinued Medications Generic Name Dose Route Start Last Admin Trade Name Karen PRN Reason Stop Dose Admin Albuterol/Ipratropium 1 neb 03/26/25 05:33 03/26/25 05:46 Iprat-Albut 0.5-2.5 Mg/3 Ml Neb IH 03/26/25 05:34 1 neb ONCE ONE Administration Azithromycin 500 mg 03/26/25 05:40 03/26/25 06:13 Azithromycin 250 Mg Tablet PO 03/26/25 05:41 500 mg ONCE ONE Administration Methylprednisolone Sodium Succinate 60 mg 03/26/25 05:33 03/26/25 05:55 Methylprednisolone Sod Succ 40 Mg/Ml IVP 03/26/25 05:34 60 mg ONCE ONE Administration Medical Decision Making Lab Data Lab results reviewed: Yes I reviewed the patient's lab results Lab results narrative: No significant leukocytosis or anemia. Significant liver dysfunction, worse than previous visits. Inflammatory and cardiac markers are thankfully negative. Viral swabs are negative. Labs: Lab Results 03/26/25 03/26/25 Range/Units 06:00 06:37 WBC 6.12 (4.50-11.00) K/uL RBC 4.51 (4.30-5.90) m/uL Hgb 15.2 (13.5-17.5) gm/dL Hct 44.7 (37.0-53.0) % MCV 99 (80-100) fL MCH 34 (26-34) pg MCHC 34 (32-36) gm/dL RDW Coeff of Elizabeth 13.3 (11.5-15.5) % Plt Count 148 (140-440) K/uL Neut % (Auto) 40.8 L (42.0-72.0) % Lymph % (Auto) 29.7 (20-44) % Spalding % (Auto) 12.9 H (0.0-11.0) % Eos % (Auto) 14.4 H (0.0-7.0) % Baso % (Auto) 1.5 (0.0-3.0) % Neut # (Auto) 2.50 (1.7-7.0) K/uL Lymph # (Auto) 1.82 (0.90-2.90) K/uL Spalding # (Auto) 0.80 (0.00-0.90) K/UL Eos # (Auto) 0.90 H (0.00-0.50) K/uL Baso # (Auto) 0.09 (0.00-0.30) K/uL Abs Immat Gran (auto) 0.04 (0.00-0.30) K/uL Imm/Tot Granulo (auto) 0.7 % Sodium 137 (135-149) mmol/L Potassium 3.7 (3.6-5.1) mmol/L Chloride 106 (96-114) mmol/L Carbon Dioxide 23 (20-32) mmol/L Anion Gap 8 (7-15) mEq/L BUN 11 (7-30) mg/dL Creatinine 0.7 (0.5-1.5) mg/dL Estimated Creat Clear 71.28 Estimated GFR 101 ml/min Glucose 100 (60-115) mg/dL Calcium 8.9 (8.4-10.6) mg/dL Total Bilirubin 2.9 H (0.1-1.5) mg/dL AST 109 H (12-35) U/L ALT 59 H (4-50) U/L Alkaline Phosphatase 259 H (40-150) U/L Troponin I < 0.01 (0.01-0.04) ng/mL C-Reactive Protein < 0.5 L (0.5-1.0) mg/dL NT-Pro-B Natriuret Pep 37 (See Note) pg/mL Total Protein 7.6 (6.0-8.3) g/dL Albumin 3.5 (3.3-5.0) g/dL Lipase 168 (23-300) U/L SARS-CoV-2 (PCR) Negative SARS-CoV-2 (Negative) Influenza Type A (PCR) Negative PCR FLU A (Negative) Influenza Type B (PCR) Negative PCR FLU B (Negative) RSV (PCR) Negative PCR RSV (Negative) Lab Acknowledgement Test Added Imaging Data Chest x-ray: Attestation: I have reviewed the pertinent imaging results. My impression: COPD changes but no focal infiltrate. No obvious cardiomegaly or signs of pleural effusions Radiologist's impression: IMPRESSION: No acute findings and no change compared to the prior exam. There are COPD changes. No other specific findings to explain dyspnea. Dictated by Lake Peña MD @ 03/26/2025 5:51:[address] scan - abdomen: Attestation: I have reviewed the pertinent imaging results. My impression: Marked cirrhosis but I do not see any mass. He also has a lot of atherosclerotic disease. Radiologist's impression: IMPRESSION: 1. Cirrhosis. Significant atrophy of the left portal vein and left hepatic lobe. Heterogeneity in segment could be a mass. Recommend MR abdomen without with IV contrast liver mass protocol. 2. No splenomegaly or ascites. 3. There is a very large splenorenal shunt and esophageal varices. 4. Severe atherosclerosis with suspected multifocal high-grade stenosis in the iliac and proximal lower extremity arteries. 5. Cholelithiasis. Please note that all CT scans at this facility use dose modulation, iterative reconstruction, and/or weight-based dosing when appropriate to reduce radiation dose to as low as reasonably achievable. Dictated by Shivani Gill MD @ 03/26/2025 7:38:32 AM ECG Data Attestation: I personally reviewed and interpreted this ECG as follows: Prior ECG tracings: not available for review Interpretation: Sinus rhythm with a rate of 93. Mild Anterior septal changes, mild thought to be chronic. Intervals and axis are normal. No acute ST or T-wave abnormalities that would suggest acute ischemia. Discharge Plan Discharge Clinical Impression: Acute exacerbation of chronic obstructive pulmonary disease, Cirrhosis of liver Patient Disposition: Home, Self-Care Instructions: COPD (Chronic Obstructive Pulmonary Disease) (DC) Additional Instructions: I am glad that your breathing is doing better after the treatments given here in the emergency room. You have been given refills of albuterol for your kalyani athing. Please continue to use your inhalers as prescribed. I have given you a 5 day course of antibiotics and steroids to help with this current flare up. You have already had your dose of antibiotics for today, you will take this once daily in the mornings. The steroid is taken twice daily, your next dose will be this evening, at least 3 hours before bed. If taken to close to bedtime, it can cause insomnia. It is critically important that you quit drinking any alcohol. Your liver as showing severe signs of impairment and this is causing the swelling in your legs. I have also given you a printout of your CT scan that does show an area that is concerning for a mass. Most likely this is still just chronic disease in the liver but an MRI should be ordered by your primary care doctor to investigate this further. Please make an appointment for follow-up in the next couple of weeks and bring both the report and this hand out to the appointment to help them understand what needs to be done. I have placed you on a 10 day course of water pills called furosemide to help decrease the swelling. No primary care doctor will follow up and decide if this should be continued. For many people, quitting drinking alcohol improves things significantly, enough for they may not need to stay on the water pills long-term but it is too soon to tell for you. Please call and schedule a primary care appointment at your earliest convenience. Return to the emergency department if you have severe worsening of shortness of breath or if symptoms fail to improve with the measures given. Prescriptions: New prednisone 20 mg tablet 20 mg PO BID 5 Days Qty: 10 0RF azithromycin 250 mg tablet See Rx Instructions PO .COMPLEX Qty: 6 0RF Rx Instructions: For 250 mg dose pack: take 500 mg today (day 1), then 250 mg for 4 days (days 2-5) albuterol sulfate 90 mcg/actuation HFA aerosol inhaler 1 inh inhalation Q6H PRN (Reason: shortness of breath or wheezing) Qty: 8.5 8RF furosemide 20 mg tablet 20 mg PO DAILY Qty: 10 0RF ipratropium-albuterol 0.5 mg-3 mg(2.5 mg base)/3 mL solution for nebulization 3 ml inhalation Q6H PRNQty: 90 8RF No Action furosemide [Lasix] 20 mg tablet 20 mg PO DAILY Qty: 10 0RF methylprednisolone [Medrol (Evangelista)] 4 mg tablets,dose pack See Rx Instructions .ROUTE .COMPLEX Qty: 21 0RF Rx Instructions: orally per package directions albuterol sulfate 90 mcg/actuation aerosol powdr breath activated 2 inh inhalation Q4-6H PRNQty: 1 2RF ipratropium-albuterol 0.5 mg-3 mg(2.5 mg base)/3 mL solution for nebulization 3 ml inhalation Q6H PRNQty: 180 2RF ipratropium-albuterol 0.5 mg-3 mg(2.5 mg base)/3 mL solution for nebulization 3 ml INHALATION Q6H PRN (Reason: dyspnea) albuterol sulfate 90 mcg/actuation HFA aerosol inhaler 2 puff inhalation Q4H PRN (Reason: dyspnea) Spiriva Respimat 2.5 mcg/actuation mist 2 puff inhalation DAILY Follow Up/Referrals: Provider,Not a Local [Primary Care Provider, Family Practice] Stand Alone Forms: [employer] Info Instructions
--- NOTE | 2025-03-26 05:40 | PC.NURSE ---
Pt to radiology via w/c
[2025-03-26] MEDS: IPRAT-ALBUT 0.5-2.5 MG/3 ML NEB 1 NEB IH (05:46)
[2025-03-26 06:07] LABS: Hematocrit* 44.7 % (37.0-53.0); Hemoglobin* 15.2 gm/dL (13.5-17.5); Immature Granulocytes Abs Auto 0.04 K/uL (0.00-0.30); Immature Granulocytes Pct Auto 0.7 %; Lymphocytes Absolute Auto 1.82 K/uL (0.90-2.90); Mean Corpuscular HGB Conc 34 gm/dL (32-36); Mean Corpuscular Hemoglobin 34 pg (26-34); Mean Corpuscular Volume 99 fL (80-100); RDW Coefficient of Variation % 13.3 % (11.5-15.5); Red Blood Count* 4.51 m/uL (4.30-5.90); White Blood Count* 6.12 K/uL (4.50-11.00)
[2025-03-26] MEDS: AZITHROMYCIN 250 MG TABLET 500 MG PO (06:13)
[2025-03-26 06:14] LABS: Slide Review Reflex No
[2025-03-26 06:23] LABS: Albumin* 3.5 g/dL (3.3-5.0); Chloride* 106 mmol/L (96-114); Potassium* 3.7 mmol/L (3.6-5.1)
[2025-03-26 06:26] LABS: Alanine Aminotransferase* 59 U/L (4-50); Alkaline Phosphatase* 259 U/L (40-150); Aspartate Amino Transferase* 109 U/L (12-35); Bilirubin Total* 2.9 mg/dL (0.1-1.5); Blood Urea Nitrogen* 11 mg/dL (7-30); Carbon Dioxide* 23 mmol/L (20-32); Creatinine* 0.7 mg/dL (0.5-1.5); Est. Creatinine Clearance* 71.28; Estimated Glomerular Filt Rate 101 ml/min; Total Protein* 7.6 g/dL (6.0-8.3)
[2025-03-26 06:27] LABS: Calcium* 8.9 mg/dL (8.4-10.6); Glucose* 100 mg/dL (60-115)
[2025-03-26 06:42] LABS: Anion Gap 8 mEq/L (7-15); Sodium* 137 mmol/L (135-149)
[2025-03-26 06:45] LABS: PCR FLU A Negative PCR FLU A (Negative); PCR FLU B Negative PCR FLU B (Negative); PCR RSV Negative PCR RSV (Negative); SARS PCR* Negative SARS-CoV-2 (Negative)
[2025-03-26 06:52] LABS: NT Pro B Type NatriureticPept* 37 pg/mL (See Note)
--- NOTE | 2025-03-26 06:57 | CRLHL7_ITS ---
For Patients: As a result of the Century Cures Act, medical imaging exams and procedure reports are released immediately into your electronic medical record. You may view this report before your referring provider. If you have questions, please contact your health care provider. INDICATION: Ascites and liver impairment. COMPARISON: None. TECHNIQUE: CT of the abdomen and pelvis with intravenous contrast. Multiplanar axial, coronal, and sagittal reformats were reconstructed. Contrast: 76 mL Isovue 370. FINDINGS: Lung bases: Normal. Liver: Cirrhosis. Severe atrophy of the left lobe of the liver. There is probably also a degree of hepatic steatosis. There is some heterogeneity in segment that could be a mass. Gallbladder and bile ducts: Cholelithiasis. No bile duct dilation. Pancreas: Normal. Spleen: The spleen is nonenlarged and measures 9.6 centimeters in length. Adrenal glands: Normal. Kidneys: Normal parenchyma. No cyst or solid mass. No calculi. No urinary tract dilation. Urinary bladder: Normal. Pelvis: No cyst or mass. Aorta and branches: Very heavy atherosclerosis. Hepatic arterial supply arises from the celiac artery. There appears to be moderate stenosis at the origin of both the celiac artery and superior mesenteric artery. Heavy atherosclerosis extends out into the mesenteric branches of the SMA. Atherosclerosis at the origin of both renal arteries. ANATOLY is patent. There is likely high-grade stenosis of both common iliac arteries due to atherosclerosis. Very heavy atherosclerosis of the internal and external iliac arteries and common femoral and proximal superficial femoral arteries. Portal venous system: The mesenteric veins are patent and mildly dilated. There is a very large spontaneous splenorenal shunt with dilatation of the left renal vein. The splenic vein is patent. The main portal vein is patent. The left portal vein is extremely atrophic consistent with significant left liver atrophy. The right portal vein is small but patent. Hyperenhancing esophageal varices. Systemic veins: Splenorenal shunt with a dilated left renal vein. Bowel: No dilated or inflamed bowel. The appendix is not discretely seen. [id number] stool burden. Lymph nodes: No adenopathy. Peritoneum: No ascites. Abdominal wall: Small fat containing umbilical hernia. Bones: No fractures. No focal worrisome bone lesions. Large Schmorl`s nodes in the superior endplates of L2 and L3. Multilevel disc and facet degeneration. IMPRESSION: 1. Cirrhosis. Significant atrophy of the left portal vein and left hepatic lobe. Heterogeneity in segment could be a mass. Recommend MR abdomen without with IV contrast liver mass protocol. 2. No splenomegaly or ascites. 3. There is a very large splenorenal shunt and esophageal varices. 4. Severe atherosclerosis with suspected multifocal high-grade stenosis in the iliac and proximal lower extremity arteries. 5. Cholelithiasis. Please note that all CT scans at this facility use dose modulation, iterative reconstruction, and/or weight-based dosing when appropriate to reduce radiation dose to as low as reasonably achievable. Dictated by Shivani Gill MD @ 03/26/2025 7:38:32 AM (Electronically Signed)
[2025-03-26] MEDS: FUROSEMIDE 40 MG TABLET PO (08:07)
[2025-03-26] MEDS: POTASSIUM CHLORIDE 10 MEQ CAPSULE ER 20 MEQ PO (08:08)
[2025-03-26] MEDS: ALBUTEROL SULFATE 2.5 MG/3 ML VIAL.NEB NEB (08:08)
--- NOTE | 2025-03-26 08:42 | ED.NURSE ---
Patient was helped to set up appointment to establish with a primary care.
--- NOTE | 2025-04-03 11:13 | PC.SOCIAL ---
Social work: Per MD order to contact pt for information on health insurance options, called pt at phone number on chart [phone] and left general msg requesting call back. 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
== END 2025-03-26 08:45 | disposition home or self-care (01) ==
PROVIDERS: Emergency Provider Family Medicine
DX: J44.1 Chronic obstructive pulmonary disease with (acute) exacerbation (principal); K74.60 Unspecified cirrhosis of liver
CPT/HCPCS: 36415; 71046; 74177; 80053; 83690; 83880; 84484; 85025; 86140; 87631; 93005; 94640; 99284; 99285; A9270; J2919; Q9967

== ENCOUNTER 2025-04-18 06:58 | Outpatient (CLI) | payer OTHER, SELFPAY ==
--- NOTE | 2025-04-18 07:15 | CRLHL7_ITS ---
For Patients: As a result of the Century Cures Act, medical imaging exams and procedure reports are released immediately into your electronic medical record. You may view this report before your referring provider. If you have questions, please contact your health care provider. INDICATION: Liver cirrhosis. COMPARISON: CT abdomen pelvis with contrast March 26, 2025. TECHNIQUE: MRI of the abdomen without and with intravenous contrast; precontrast T1 and T2 weighted imaging; T2 haste imaging; diffusion-weighted imaging; in and out of phase imaging; postcontrast imaging including subtraction; 20 cc of clariscan contrast was injected IV. Findings: Cirrhotic liver morphology with evidence of portal hypertension, splenomegaly and extensive portosystemic communications and splenorenal shunt. Esophageal varices. Markedly attenuated portal venous flow into the liver. Several nonspecific arterially enhancing lesions in the right hepatic lobe without any washout on the venous phase imaging. No washout on the delayed imaging. Gallstones. No adrenal pathology. Kidneys are unremarkable. No evidence of abdominal ascites. Impression : 1. Cirrhotic liver morphology with evidence of portal hypertension and extensive portosystemic communications. 2. Several small arterially enhancing lesions identified in the liver without washout on the venous phase imaging; LR 3 lesions; follow-up suggested. 3. Cholelithiasis. Dictated by Eric Woods MD @ 04/18/2025 3:34:33 PM (Electronically Signed)
== END 2025-04-18 06:59 | disposition home or self-care (01) ==
PROVIDERS: PCP Family Medicine; Visit Provider Family Medicine
DX: K74.60 Unspecified cirrhosis of liver (principal); K76.9 Liver disease, unspecified; K80.20 Calculus of gallbladder without cholecystitis without obstruction; R16.0 Hepatomegaly, not elsewhere classified
CPT/HCPCS: 74183; A9575

== ENCOUNTER 2025-05-13 09:55 | Inpatient (IN) | payer MEDICARE, SELFPAY ==
[2025-05-13] VITALS (28 sets, daily range): BP systolic 106–187; BP diastolic 62–95; PULSE 74–98; RESP 12–21; TEMP 36.6–37.1; O2SAT 88–95; BMI 22.0
--- NOTE | 2025-05-13 10:15 | ED.CHESTPAIN ---
HPI - Chest Pain General Date Seen: 05/13/25 Chief Complaint: Chest Pain Stated Complaint: Chest pain Time Seen by Provider: 05/13/25 10:15 Source: patient, RN notes reviewed and old records reviewed Mode of arrival: ambulatory Limitations: no limitations History of Present Illness HPI narrative: Myke is a 69-year-old male with history of hepatitis C, alcohol abuse, hypertension, spinal cerebellar ataxia, cigarette use and asthma who comes to the [facility] with chest pain. Patient notes the onset of chest pain approximately 3 days ago. He shows this to be in his anterior chest. He states that his back and hips and neck are also uncomfortable and in pain. He states he tried to take some and acids thinking it was heartburn but it did not make the pain go away. He denies a cough fever sore throat or runny nose. He denies any calf pain or lower extremity edema. Additional diagnoses include newly diagnosed cirrhosis of the liver and lesions in the liver based on MRI from 04/18/2025. Related Data Previous Rx's ?Medication ?Instructions ?Recorded albuterol sulfate 90 mcg/actuation 1 inh inhalation Q6H PRN shortness 03/26/25 aerosol inhaler of breath or wheezing #8.5 grams ipratropium 0.5 mg-albuterol 3 mg 3 ml inhalation Q6H PRN #90 mL 03/26/25 (2.5 mg base)/3 mL nebulization soln furosemide 20 mg tablet 20 mg PO DAILY #30 tabs 04/02/25 Allergies Allergy/AdvReac Type Severity Reaction Status Date / Time carbidopa (From Sinemet) Allergy Unknown Palpitation Verified 05/13/25 10:13 s levodopa (From Sinemet) Allergy Unknown Palpitation Verified 05/13/25 10:13 s Review of Systems Status of ROS Reports: 10 or more systems reviewed and unremarkable except as noted in History and below Const Reports: fatigue; Denies: fever or chills Eyes Denies: change in vision ENMT Reports: neck pain; Denies: throat pain or nasal congestion Cardio Reports: chest pain; Denies: palpitations, swelling of feet/ankles or shortness of breath with exertion Resp Denies: shortness of breath or cough GI Reports: abdominal pain, nausea, vomiting and constipation; Denies: diarrhea Denies: painful urination Musculo Reports: back pain and neck pain; Denies: extremity pain or extremity swelling Neuro Reports: headache and weakness in extremities Endo Reports: fatigue PFSH PFSH Medical History Peripheral vascular disease ?I73.9 - Peripheral vascular disease, unspecified (ICD-10) Portal hypertension ?K76.6 - Portal hypertension (ICD-10) History of alcohol abuse ?F10.11 - Alcohol abuse, in remission (ICD-10) Hepatitis C ?B19.20 - Unspecified viral hepatitis C without hepatic coma (ICD-10) Cholelithiasis ?K80.20 - Calculus of gallbladder without cholecystitis without obstruction (ICD-10) Peripheral neuropathy ?G62.9 - Polyneuropathy, unspecified (ICD-10) COPD (chronic obstructive pulmonary disease) ?J44.9 - Chronic obstructive pulmonary disease, unspecified (ICD-10) Cirrhosis of liver ?K74.60 - Unspecified cirrhosis of liver (ICD-10) History of intravenous drug use ?Z87.898 - Personal history of other specified conditions (ICD-10) Surgical History History of tonsillectomy ?Z90.89 - Acquired absence of other organs (ICD-10) History of appendectomy ?Z90.49 - Acquired absence of other specified parts of digestive tract (ICD-10) History of open reduction and internal fixation (ORIF) procedure ?Z98.890 - Other specified postprocedural states (ICD-10) Social History (Updated 05/13/25 @ 13:25 by Matthieu Raymond MD) Narrative: He lives alone in [place]. Closest family is his son Jake who lives in [place]. Jake would be healthcare power of personal injury attorney. Code status is full. Previous history of chronic alcohol abuse but reports sobriety for the last month. Longstanding history of smoking but now cut down to 1/2-1 cigarette per day. What is your current living situation?: I presently have a place to live Problems where you live: pests, such as bugs, ants, or mice Problems where you live details: NA In the past 12 months, utilities in danger of being shut off: declined to answer In past 12 months, lack of transportation kept you from medical appts, meetings, work, or getting things needed for daily living: declined to answer In the past 12 mos, have been you worried that your food would run out before you had money to buy more?: declined to answer In the past 12 mos, the food you bought just didn't last and you didn't have money to buy more?: declined to answer Highest level of school completed/degree received: 9th grade Smoking Status: Current every day smoker What tobacco products do you use: cigarettes Smoking packs per day: 0.25 Smoking cigarettes per day: 5.0 Years smoked: 55 Smoking pack-years: 13.75 Second hand tobacco smoke exposure: Yes How often do you have a drink containing alcohol: never AUDIT-C Alcohol total score: 0 Non-prescribed substance use: denies use Caffeine: Yes How often does anyone, including family, friends and others, physically hurt you: never How often does anyone, including family, friends and others, insult or talk down to you: never How often does anyone, including family, friends and others, threaten you with harm: never How often does anyone, including family, friends and others, scream or curse at you: never service: No Health Related Social Needs: Inadequate housing (Z59.1) Exam Narrative Exam Narrative: Await and oriented. Anxious. Slightly delayed response to answering questions. Sometimes contradicting answers noted. Eyes are clear. Disheveled in appearance. External ears eyes nose clear. Heart with regular rate and rhythm. I do not hear additional heart sounds. Lungs with decreased breath sounds in the bases. Abdomen is soft and nontender. Lower extremities without edema. DTRs 1+ at the knees. Const Vital Signs, click to edit/add: Vital Signs - 24 hr 05/13/25 10:05 05/13/25 10:38 05/13/25 10:47 Temperature 98.8 F Pulse Rate 87 Pulse Rate [Pulse Oximeter] 74 Respiratory Rate 18 17 Blood Pressure 169/94 H Blood Pressure [Left Upper Arm] 187/79 H Pulse Oximetry 95 94 Oxygen Delivery Method Room Air 05/13/25 10:48 05/13/25 11:00 05/13/25 11:03 Temperature Pulse Rate 89 86 92 Pulse Rate [Pulse Oximeter] Respiratory Rate 15 21 Blood Pressure 143/86 H Blood Pressure [Left Upper Arm] Pulse Oximetry 94 94 94 Oxygen Delivery Method 05/13/25 11:04 05/13/25 11:15 05/13/25 11:23 Temperature Pulse Rate 74 81 89 Pulse Rate [Pulse Oximeter] Respiratory Rate 14 18 Blood Pressure 145/82 H Blood Pressure [Left Upper Arm] Pulse Oximetry 95 91 92 Oxygen Delivery Method 05/13/25 11:24 05/13/25 11:30 05/13/25 11:42 Temperature Pulse Rate 80 80 76 Pulse Rate [Pulse Oximeter] Respiratory Rate 18 17 Blood Pressure 147/85 H Blood Pressure [Left Upper Arm] Pulse Oximetry 93 92 93 Oxygen Delivery Method 05/13/25 11:45 05/13/25 12:00 05/13/25 12:02 Temperature Pulse Rate 74 84 84 Pulse Rate [Pulse Oximeter] Respiratory Rate 18 18 18 Blood Pressure 156/87 H Blood Pressure [Left Upper Arm] Pulse Oximetry 92 92 93 Oxygen Delivery Method 05/13/25 12:15 05/13/25 12:22 05/13/25 12:30 Temperature Pulse Rate 86 88 92 Pulse Rate [Pulse Oximeter] Respiratory Rate 17 17 12 Blood Pressure 149/95 H Blood Pressure [Left Upper Arm] Pulse Oximetry 95 92 95 Oxygen Delivery Method Course Course ED Course: Differential diagnosis includes but is not limited to acute coronary disease, pericarditis, COPD exacerbation, COVID, influenza. Cannot rule out small bowel obstruction or sepsis. Will place IV and draw labs include CBC, comprehensive, lipase, lactate, CRP, troponin. Will also obtain chest x-ray EKG continue patient on cardiac monitoring and oximetry. If the point of care troponin is negative will do a trial of Toradol. Reevaluation(s) Reevaluation #1: Patient does not think the nitroglycerin helped. He is somewhat nauseated. He denied nausea vomiting earlier now tells me he has had vomiting. Notes that this all started after he felt constipated from his diuretic. States that he took some Maalox which happened to be old and that is when all of his discomfort occurred. This was 3 days ago. Will give him Zofran at this time. EKG without any significant changes. Currently awaiting point of care troponin. Reevaluation #2: Patient notes that he is very nauseated. Will give him Zofran IV. Will also do a trial of Toradol as his initial troponin is negative. Patient noted to have calcium elevation of 13.3. Will obtain vitamin-D, ionized calcium, PTH, TSH at this time. Will start 1 L of normal saline. Reevaluation #3: Magnesium noted to be 1.4. Patient appears to be much improved in terms of discomfort after Toradol dosing. Ionized calcium is elevated at 1.65 PTH low at 10.2 and magnesium is 1.4. Also noted is elevation of total bilirubin at 3.4 AST of 78 ALT of 54. Alk-phos is within normal limits. Vitamin-D is 33 and TSH is 1.86. Patient has tested negative for COVID influenza and RSV. Vital Signs Vital signs: Initial Vital Signs Temperature 98.8 F 05/13/25 10:05 Temperature Source Temporal Artery Scan 05/13/25 10:05 Pulse Rate 74 05/13/25 10:05 Respiratory Rate 18 05/13/25 10:05 Blood Pressure 187/79 H 05/13/25 10:05 Blood Pressure Mean 115 H 05/13/25 10:05 Blood Pressure Position Sitting 05/13/25 10:05 Pulse Oximetry 95 05/13/25 10:05 Oxygen Delivery Method Room Air 05/13/25 10:05 Vital Signs Temperature 98.8 F 05/13/25 10:05 Pulse Rate 74 05/13/25 10:05 Respiratory Rate 18 05/13/25 10:05 Blood Pressure 187/79 H 05/13/25 10:05 Pulse Oximetry 95 05/13/25 10:05 Oxygen Delivery Method Room Air 05/13/25 10:05 Temperature 97.8 F 05/13/25 15:40 Pulse Rate 89 05/13/25 16:01 Respiratory Rate 18 05/13/25 15:40 Blood Pressure 114/62 05/13/25 15:40 Pulse Oximetry 94 05/13/25 15:40 Oxygen Delivery Method Room Air 05/13/25 15:40 Medications Administered Medications: Generic Name Dose Route Start Last Admin Trade Name Freq PRN Reason Stop Dose Admin Sodium Chloride 1,000 mls @ 100 mls/hr 05/13/25 13:30 05/13/25 15:32 0.9 % Sodium Chloride 1000 Ml IV 100 mls/hr .Q10H CLARISA Administration Morphine Sulfate 4 mg 05/13/25 14:02 05/13/25 14:25 Morphine 4 Mg/Ml Inj IVP 4 mg Q1H PRN Administration Ondansetron HCl 4 mg 05/13/25 13:30 05/13/25 13:40 Ondansetron 2 Mg/Ml Inj IVP 4 mg Q4H PRN Administration Nausea Discontinued Medications Generic Name Dose Route Start Last Admin Trade Name Freq PRN Reason Stop Dose Admin Aspirin 324 mg 05/13/25 10:20 05/13/25 10:37 Aspirin 81 Mg Tab.Chew PO 05/13/25 10:21 324 mg ONCE ONE Administration Sodium Chloride 1,000 mls @ 1,000 mls/hr 05/13/25 11:33 05/13/25 13:21 0.9 % Sodium Chloride 1000 Ml IV 05/13/25 12:32 Infused .Q1H CLARISA Infusion Magnesium Sulfate 2 gm in 50 mls @ 25 mls/hr 05/13/25 12:18 05/13/25 15:55 Magnesium Iv IVPB 05/13/25 14:17 Infused ONCE ONE Infusion Sodium Chloride 1,000 mls @ 500 mls/hr 05/13/25 13:30 05/13/25 15:32 0.9 % Sodium Chloride 1000 Ml IV 05/13/25 15:29 500 mls/hr .Q2H CLARISA Administration Lidocaine/Aluminum/Magnesium/Simeth 30 ml 05/13/25 13:30 05/13/25 14:25 Gi Cocktail (Visc Lido/Antacid) 30 Ml PO 05/13/25 13:31 30 ml ONCE ONE Administration Morphine Sulfate 4 mg 05/13/25 12:59 05/13/25 12:58 Morphine 4 Mg/Ml Inj IVP 05/13/25 13:00 4 mg ONCE ONE Administration Morphine Sulfate 2 mg 05/13/25 13:30 05/13/25 13:40 Morphine 4 Mg/Ml Inj IVP 2 mg Q1H PRN Administration Nitroglycerin 0.4 mg 05/13/25 10:20 05/13/25 10:37 Nitroglycerin 0.4 Mg Tab.Subl SUBLINGUAL 05/13/25 10:21 0.4 mg ONCE ONE Administration Ondansetron HCl 4 mg 05/13/25 10:57 05/13/25 11:03 Ondansetron 2 Mg/Ml Inj IVP 05/13/25 10:58 4 mg ONCE ONE Administration Pantoprazole Sodium 40 mg 05/13/25 13:30 05/13/25 13:40 Pantoprazole Sodium 40 Mg Inj IVP 05/13/25 13:31 40 mg ONCE ONE Administration MDM - Chest Pain MDM Narrative Medical decision making narrative: 1. Hypercalcemia-patient had normal calcium at the end of February of this year. Today calcium is 13.3. Likely this is the cause of his as chest pain as well as constipation. Patient is started on 1 L of normal saline. Additional studies including TSH, PTH, vitamin-D, magnesium added to labs. Will need IV fluids and likely greater than 2 nights of admission and order to decrease the calcium as well as ascertain etiology. 2. Hypomagnesemia-likely dietary. Patient does have a past history of alcohol abuse but he is currently sober. 2 g IV magnesium ordered. DTRs are within normal limits but likely from the hypercalcemia. He is nauseated and seems to be very weak and somewhat confused which is likely from the low magnesium. Will need IV replacement and continued monitoring. 3. Chest pain-reassuring EKG without evidence of acute ST or T-wave changes. Troponin negative. Point of care troponin is high sensitivity and given the patient's ongoing chest pain for 3 days do not feel the need to do 2nd troponin. Chest pain most likely from hypocalcemia. Pain initially helped with Toradol but then did seem to worsen and thus he was given morphine 4 mg IV. 4. Cirrhosis and Liver lesions-MRI noted from 1 month ago. Patient also noted to have a history of hepatitis-C. 6. Disposition -admit under the care of Dr. Raymond, hospitalist. Segundo requesting that we do a chest PE study, abdomen and pelvis. Medical Records Data Attestation: I reviewed the patient's medical records. Lab Data Attestation: I reviewed the patient's lab results. Labs: Lab Results 05/13/25 05/13/25 05/13/25 Range/Units 10:23 10:40 10:50 WBC 7.31 (4.50-11.00) K/uL RBC 4.60 (4.30-5.90) m/uL Hgb 15.4 (13.5-17.5) gm/dL Hct 44.8 (37.0-53.0) % MCV 97 (80-100) fL MCH 34 (26-34) pg MCHC 34 (32-36) gm/dL RDW Coeff of Elizabeth 13.4 (11.5-15.5) % Plt Count 141 (140-440) K/uL Neut % (Auto) 79.8 H (42.0-72.0) % Lymph % (Auto) 13.0 L (20-44) % Hardeman % (Auto) 6.7 (0.0-11.0) % Eos % (Auto) 0.0 (0.0-7.0) % Baso % (Auto) 0.4 (0.0-3.0) % Neut # (Auto) 5.80 (1.7-7.0) K/uL Lymph # (Auto) 1.00 (0.90-2.90) K/uL Hardeman # (Auto) 0.50 (0.00-0.90) K/UL Eos # (Auto) 0.00 (0.00-0.50) K/uL Baso # (Auto) 0.03 (0.00-0.30) K/uL Abs Immat Gran (auto) 0.01 (0.00-0.30) K/uL Imm/Tot Granulo (auto) 0.1 % INR 1.38 H (0.91-1.10) Sodium 136 (135-149) mmol/L Potassium 3.6 (3.6-5.1) mmol/L Chloride 102 (96-114) mmol/L Carbon Dioxide 28 (20-32) mmol/L Anion Gap 6 L (7-15) mEq/L BUN 18 (7-30) mg/dL Creatinine 0.9 (0.5-1.5) mg/dL Estimated Creat Clear 70.36 Estimated GFR 94 ml/min Glucose 145 H (60-115) mg/dL Calcium 13.3 H* (8.4-10.6) mg/dL Ionized Calcium Abdoul (1.11-1.30) mmol/L Magnesium 1.4 L (1.5-2.6) mg/dL Total Bilirubin 3.4 H (0.1-1.5) mg/dL AST 78 H (12-35) U/L ALT 54 H (4-50) U/L Alkaline Phosphatase 145 (40-150) U/L POC Troponin I High Sensi 9.3 (2.9-28.0) pg/mL Total Protein 7.4 (6.0-8.3) g/dL Albumin 3.6 (3.3-5.0) g/dL 25-OH Vitamin D Total 33 (30-80) ng/mL Procalcitonin 0.10 (<0.50) ng/mL TSH 1.860 (0.270-4.20) uIU/mL PTH Intact 10.2 L (14.2-75.2) pg/mL SARS-CoV-2 (PCR) Negative SARS-CoV-2 (Negative) Influenza Type A (PCR) Negative PCR FLU A (Negative) Influenza Type B (PCR) Negative PCR FLU B (Negative) RSV (PCR) Negative PCR RSV (Negative) Lab Acknowledgement 05/13/25 05/13/25 05/13/25 Range/Units 11:28 11:32 11:38 WBC (4.50-11.00) K/uL RBC (4.30-5.90) m/uL Hgb (13.5-17.5) gm/dL Hct (37.0-53.0) % MCV (80-100) fL MCH (26-34) pg MCHC (32-36) gm/dL RDW Coeff of Elizabeth (11.5-15.5) % Plt Count (140-440) K/uL Neut % (Auto) (42.0-72.0) % Lymph % (Auto) (20-44) % Hardeman % (Auto) (0.0-11.0) % Eos % (Auto) (0.0-7.0) % Baso % (Auto) (0.0-3.0) % Neut # (Auto) (1.7-7.0) K/uL Lymph # (Auto) (0.90-2.90) K/uL Hardeman # (Auto) (0.00-0.90) K/UL Eos # (Auto) (0.00-0.50) K/uL Baso # (Auto) (0.00-0.30) K/uL Abs Immat Gran (auto) (0.00-0.30) K/uL Imm/Tot Granulo (auto) % INR (0.91-1.10) Sodium (135-149) mmol/L Potassium (3.6-5.1) mmol/L Chloride (96-114) mmol/L Carbon Dioxide (20-32) mmol/L Anion Gap (7-15) mEq/L BUN (7-30) mg/dL Creatinine (0.5-1.5) mg/dL Estimated Creat Clear Estimated GFR ml/min Glucose (60-115) mg/dL Calcium (8.4-10.6) mg/dL Ionized Calcium Abdoul (1.11-1.30) mmol/L Magnesium (1.5-2.6) mg/dL Total Bilirubin (0.1-1.5) mg/dL AST (12-35) U/L ALT (4-50) U/L Alkaline Phosphatase (40-150) U/L POC Troponin I High Sensi (2.9-28.0) pg/mL Total Protein (6.0-8.3) g/dL Albumin (3.3-5.0) g/dL 25-OH Vitamin D Total (30-80) ng/mL Procalcitonin (<0.50) ng/mL TSH (0.270-4.20) uIU/mL PTH Intact (14.2-75.2) pg/mL SARS-CoV-2 (PCR) (Negative) Influenza Type A (PCR) (Negative) Influenza Type B (PCR) (Negative) RSV (PCR) (Negative) Lab Acknowledgement Test Added New Spec Needed A Test Added 05/13/25 Range/Units 11:57 WBC (4.50-11.00) K/uL RBC (4.30-5.90) m/uL Hgb (13.5-17.5) gm/dL Hct (37.0-53.0) % MCV (80-100) fL MCH (26-34) pg MCHC (32-36) gm/dL RDW Coeff of Elizabeth (11.5-15.5) % Plt Count (140-440) K/uL Neut % (Auto) (42.0-72.0) % Lymph % (Auto) (20-44) % Hardeman % (Auto) (0.0-11.0) % Eos % (Auto) (0.0-7.0) % Baso % (Auto) (0.0-3.0) % Neut # (Auto) (1.7-7.0) K/uL Lymph # (Auto) (0.90-2.90) K/uL Hardeman # (Auto) (0.00-0.90) K/UL Eos # (Auto) (0.00-0.50) K/uL Baso # (Auto) (0.00-0.30) K/uL Abs Immat Gran (auto) (0.00-0.30) K/uL Imm/Tot Granulo (auto) % INR (0.91-1.10) Sodium (135-149) mmol/L Potassium (3.6-5.1) mmol/L Chloride (96-114) mmol/L Carbon Dioxide (20-32) mmol/L Anion Gap (7-15) mEq/L BUN (7-30) mg/dL Creatinine (0.5-1.5) mg/dL Estimated Creat Clear Estimated GFR ml/min Glucose (60-115) mg/dL Calcium (8.4-10.6) mg/dL Ionized Calcium Abdoul 1.65 H (1.11-1.30) mmol/L Magnesium (1.5-2.6) mg/dL Total Bilirubin (0.1-1.5) mg/dL AST (12-35) U/L ALT (4-50) U/L Alkaline Phosphatase (40-150) U/L POC Troponin I High Sensi (2.9-28.0) pg/mL Total Protein (6.0-8.3) g/dL Albumin (3.3-5.0) g/dL 25-OH Vitamin D Total (30-80) ng/mL Procalcitonin (<0.50) ng/mL TSH (0.270-4.20) uIU/mL PTH Intact (14.2-75.2) pg/mL SARS-CoV-2 (PCR) (Negative) Influenza Type A (PCR) (Negative) Influenza Type B (PCR) (Negative) RSV (PCR) (Negative) Lab Acknowledgement Imaging Data Chest x-ray: Attestation: I have reviewed the pertinent imaging results. My impression: I do not note any acute infiltrates or widened mediastinum Radiologist's impression: Cardiovascular and mediastinum: Heart size and vasculature are normal in caliber and appearance. Lungs and pleural spaces: Lungs are clear. No sign of infiltrate or mass. No sign of pleural effusion. No pneumothorax. Bones and soft tissues: No significant findings. IMPRESSION: No acute findings. ECG Data Attestation: I personally reviewed and interpreted this ECG as follows: ECG interpretation date: 05/13/25 Interpretation: EKG by my read shows sinus rhythm. Machine notes AFib but I see a P wave associated with every QRS. I think there may be some sinus arrhythmia noted. I do not note a prolonged QT. I do not see any acute ST or T-wave changes. waiver analyst shows no evidence of arrhythmia. Critical Care Time Critical Care Time Critical Care Time: Yes Attestation: The patient required my highest level preparedness to intervene emergently and I personally spent this critical care time directly and personally managing the patient. This critical care time included: Obtaining a history; Examining the patient; Pulse oximetry; Ordering and reviewing of studies; Arranging urgent treatment with development of a management plan; Evaluation of patients response to treatment; Frequent reassessment discussions with other providers. This critical care time was performed to assess and manage the high probability of imminent life-threatening deterioration that could result in multiorgan failure. It was exclusive of separate billable procedures and treating other patients and teaching time. Total Critical Care Time in Minutes: 60 Discharge Plan Discharge Patient Disposition: Admitted As Inpatient
--- NOTE | 2025-05-13 10:22 | CRLHL7_ITS ---
For Patients: As a result of the Century Cures Act, medical imaging exams and procedure reports are released immediately into your electronic medical record. You may view this report before your referring provider. If you have questions, please contact your health care provider. INDICATION: Chest pain TECHNIQUE: Chest 1 view COMPARISON: 03/26/2025 FINDINGS: Cardiovascular and mediastinum: Heart size and vasculature are normal in caliber and appearance. Lungs and pleural spaces: Lungs are clear. No sign of infiltrate or mass. No sign of pleural effusion. No pneumothorax. Bones and soft tissues: No significant findings. IMPRESSION: No acute findings. Dictated by Myke Baldwin MD @ 05/13/2025 11:31:17 AM (Electronically Signed)
[2025-05-13] MEDS: ASPIRIN 81 MG TAB.CHEW 324 MG PO (10:37)
[2025-05-13] MEDS: NITROGLYCERIN 0.4 MG TAB.SUBL SUBLINGUAL (10:37)
[2025-05-13 10:56] LABS: Hematocrit* 44.8 % (37.0-53.0); Hemoglobin* 15.4 gm/dL (13.5-17.5); Immature Granulocytes Abs Auto 0.01 K/uL (0.00-0.30); Immature Granulocytes Pct Auto 0.1 %; Mean Corpuscular HGB Conc 34 gm/dL (32-36); Mean Corpuscular Hemoglobin 34 pg (26-34); Mean Corpuscular Volume 97 fL (80-100); RDW Coefficient of Variation % 13.4 % (11.5-15.5); Red Blood Count* 4.60 m/uL (4.30-5.90); White Blood Count* 7.31 K/uL (4.50-11.00)
[2025-05-13 11:02] LABS: Lymphocytes Absolute Auto 1.00 K/uL (0.90-2.90); Slide Review Reflex No
[2025-05-13] MEDS: ONDANSETRON 2 MG/ML inj 4 MG IVP ×2 (11:03→13:40)
[2025-05-13 11:10] LABS: Albumin* 3.6 g/dL (3.3-5.0); Chloride* 102 mmol/L (96-114); Potassium* 3.6 mmol/L (3.6-5.1); Sodium* 136 mmol/L (135-149)
[2025-05-13 11:13] LABS: Alanine Aminotransferase* 54 U/L (4-50); Alkaline Phosphatase* 145 U/L (40-150); Anion Gap 6 mEq/L (7-15); Aspartate Amino Transferase* 78 U/L (12-35); Bilirubin Total* 3.4 mg/dL (0.1-1.5); Blood Urea Nitrogen* 18 mg/dL (7-30); Carbon Dioxide* 28 mmol/L (20-32); Creatinine* 0.9 mg/dL (0.5-1.5); Est. Creatinine Clearance* 70.36; Estimated Glomerular Filt Rate 94 ml/min; Total Protein* 7.4 g/dL (6.0-8.3)
[2025-05-13 11:14] LABS: Glucose* 145 mg/dL (60-115)
[2025-05-13 11:26] LABS: Calcium* 13.3 mg/dL (8.4-10.6)
[2025-05-13 11:33] LABS: INR 1.38 (0.91-1.10); Prothrombin Time 17.9 Seconds
[2025-05-13 11:36] LABS: PCR FLU A Negative PCR FLU A (Negative); PCR FLU B Negative PCR FLU B (Negative); PCR RSV Negative PCR RSV (Negative); SARS PCR* Negative SARS-CoV-2 (Negative)
[2025-05-13 11:43] LABS: Lab Add On Test New Spec Needed
[2025-05-13 12:04] LABS: Ionized Calcium* 1.65 mmol/L (1.11-1.30)
[2025-05-13 12:11] LABS: Vitamin D 25 Hydroxy* 33 ng/mL (30-80)
[2025-05-13 12:17] LABS: PTH Intact* 10.2 pg/mL (14.2-75.2)
--- NOTE | 2025-05-13 12:48 | CRLHL7_ITS ---
For Patients: As a result of the 21st Century Cures Act, medical imaging exams and procedure reports are released immediately into your electronic medical record. You may view this report before your referring provider. If you have questions, please contact your health care provider. INDICATION: Chest pain, not otherwise specified. COMPARISON: None available. TECHNIQUE: CT pulmonary angiography with 95 cc of Isovue 370 intravenous contrast. Reconstructed multiplanar MIP series were done. Please note that all CT scans at this facility use dose modulation, iterative reconstruction, and/or weight-based dosing when appropriate to reduce radiation dose to as low as reasonably achievable. FINDINGS: THORAX Pulmonary Arterial Vasculature: Opacification of the pulmonary arterial tree is adequate for assessment of pulmonary embolism. No pulmonary embolism. Visualized Lower Neck: No lower cervical adenopathy. Lungs: No significant pulmonary findings. Mild bilateral upper lobe paraseptal emphysema. Bilateral lower lobe posterior/dependent subpleural hypoventilatory changes. Pleura: No pleural effusion. No pneumothorax. Mediastinum: Thoracic aorta and pulmonary trunk are normal in caliber. Mild right coronary atherosclerotic calcification. Trachea and esophagus are normal in appearance. No mediastinal lymphadenopathy. ABDOMEN Visualized Upper Abdomen: Cirrhotic liver. Gastric fundal varices consistent with portal hypertension. Please refer to the separate report of the same day abdominopelvic CT. S[employer] No acute or significant incidental findings. Bilateral symmetrical gynecomastia is noted incidentally. IMPRESSION: 1. No pulmonary embolism. No other findings to explain the history of chest pain, not otherwise specified in the indication for the examination. 2. Cirrhotic liver and gastric fundal varices demonstrated to better advantage on the contrast-enhanced abdominopelvic CT of the same day. Please refer to the separate report of the same day abdominopelvic CT. Please note that all CT scans at this facility use dose modulation, iterative reconstruction, and/or weight-based dosing when appropriate to reduce radiation dose to as low as reasonably achievable. Dictated by Jacob Snyder MD @ 05/13/2025 2:35:19 PM (Electronically Signed)
--- NOTE | 2025-05-13 12:48 | CRLHL7_ITS ---
For Patients: As a result of the Century Cures Act, medical imaging exams and procedure reports are released immediately into your electronic medical record. You may view this report before your referring provider. If you have questions, please contact your health care provider. INDICATION: Abdominal pain TECHNIQUE: Volumetric helical scanning of the abdomen and pelvis was performed with 95 cc of Isovue 370 contrast material IV. Coronal and sagittal reconstructions were obtained. COMPARISON: Today`s chest CT, Cash`s abdomen MRI of 04/18/2025 and abdomen/pelvis CT of 03/26/2025 FINDINGS: No bowel inflammation or obstruction is demonstrated. A cirrhotic liver is again demonstrated. No liver neoplasm is apparent. A large splenorenal shunt is again demonstrated with gastric along varices and distal esophageal varices. The portal vein is small but patent. The spleen is normal. No ascites evident. Stones are again demonstrated in the gallbladder. The bile ducts are within normal limits. The spleen, adrenal glands and pancreas are negative. The kidneys are unremarkable. No lymphadenopathy is evident. No free fluid is demonstrated. The prostate is negative. The lung bases are essentially clear, and heart size is normal. IMPRESSION: 1. Etiology of abdominal pain not evident. 2. Cirrhotic liver without obvious neoplasm. 3. Portal venous hypertension manifested as a large splenorenal shunt as well as gastric and distal esophageal varices. 4. Cholelithiasis. Please note that all CT scans at this facility use dose modulation, iterative reconstruction, and/or weight-based dosing when appropriate to reduce radiation dose to as low as reasonably achievable. Dictated by Matthieu Medel MD @ 05/13/2025 3:08:45 PM (Electronically Signed)
[2025-05-13] MEDS: MORPHINE 4 MG/ML INJ IVP ×3 (12:58→20:51)
[2025-05-13] MEDS: MAGNESIUM IV 2 GM/50 ML PIGGYBACK IVPB (13:05)
--- NOTE | 2025-05-13 13:13 | PM.IMHP1 ---
Assessment and Plan Assessment and plan (1) Chest pain: Problem comment: Uncertain cause. Seems correlated with abdominal pain. Possibly related to esophageal disease? Continue evaluation for cardiac, pulmonary, GI causes. Patient has partially responded to antacids Status: Acute (2) Abdominal pain: Problem comment: Present with chest pain. Patient has partially responded to antacids. Continue empiric treatment and ongoing evaluation for abdominal pain Status: Acute (3) Hypercalcemia: Problem comment: Normal vitamin-D level and suppressed PTH level. May be due to abuse of Tums. Hydrate and follow. Status: Acute (4) Hypomagnesemia: Problem comment: Replace with IV and oral Status: Acute (5) Cirrhosis of liver: Problem comment: Due to alcohol abuse and possibly chronic hepatitis-C Status: Inactive (6) Hepatitis C: Problem comment: Never got treated due to the expense of medications Status: Chronic (7) Peripheral neuropathy: Problem comment: From electrocution ~1999 as well as chronic alcohol abuse and or hepatitis C Status: Chronic (8) Liver mass: Problem comment: MRI from 04/18/2025: MRI of the abdomen without and with intravenous contrast; precontrast T1 and T2 weighted imaging; T2 haste imaging; diffusion-weighted imaging; in and out of phase imaging; postcontrast imaging including subtraction; 20 cc of clariscan contrast was injected IV. Findings: Cirrhotic liver morphology with evidence of portal hypertension, splenomegaly and extensive portosystemic communications and splenorenal shunt. Esophageal varices. Markedly attenuated portal venous flow into the liver. Several nonspecific arterially enhancing lesions in the right hepatic lobe without any washout on the venous phase imaging. No washout on the delayed imaging. Gallstones. No adrenal pathology. Kidneys are unremarkable. No evidence of abdominal ascites. Impression : 1. Cirrhotic liver morphology with evidence of portal hypertension and extensive portosystemic communications. 2. Several small arterially enhancing lesions identified in the liver without washout on the venous phase imaging; LR 3 lesions; follow-up suggested. 3. Cholelithiasis. Status: Acute (9) Does not have health insurance: Problem comment: Reluctant to receive government assistance and cannot afford private insurance. Status: Acute (10) History of alcohol abuse: Problem comment: Reports abstinence for the last month. Abnormal bilirubin and transaminases. 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 Curiel . MRI showed moderate to severe cerebellar atrophy. Status: Chronic (13) Nausea: Problem comment: Likely related to chest pain and abdominal pain continue to evaluate and treat. Status: Acute (14) COPD (chronic obstructive pulmonary disease): Problem comment: Continue home treatments. Appears to not have severe exacerbation at this time. Status: Acute (15) Portal hypertension: Problem comment: With esophageal varices and splenorenal shunt. Borderline low platelets. Continue to monitor. Status: Acute (16) Cholelithiasis: Status: Acute (17) Peripheral vascular disease: Problem comment: Abdominal CT scan on 03/26/2025 shows Severe atherosclerosis with suspected multifocal high-grade stenosis in the iliac and proximal lower extremity arteries. Status: Acute (18) Cigarette nicotine dependence: Problem comment: Encourage abstinence. Smoking minimally now Status: Chronic (19) Heart murmur, systolic: Problem comment: No previous history of heart murmur. No heart failure symptoms. Outpatient follow-up unless he becomes symptomatic Status: Acute Plan 69-year-old male with cirrhosis of the liver, COPD now presenting with chest and abdominal pain of uncertain etiology. Obtain chest abdomen pelvis CT. Further evaluation and treatment ongoing. Additionally will admit for evaluation management hypercalcemia and hypomagnesemia. Total Time Spent Total Time Spent: Total time spent today is 100 minutes in reviewing outside records, coordination of care, discussion with patient and other providers ongoing management of these multiple problems. Hospitalist- H&P: HPI History of Present Illness Date Seen: 05/13/25 Chief complaint: Chest pain Narrative: Myke Aggarwal is a 69 year old male with cirrhosis of the liver due to alcohol and hepatitis C, COPD, spinocerebellar ataxia, hypertension, peripheral neuropathy admitted to the hospital with a 3 day history of severe chest and abdominal pain. He reports that the pain is from his upper mid chest all the way down to his lower mid abdomen. Pain is constant. Nothing obviously makes it worse. It is associated with fairly severe nausea. He had 1 nonbloody emesis today but otherwise has not been vomiting. He has been taking Maalox and taking Tums 2 tablets every hour for the last day to treat his chest and abdominal pain. He reports he gets some partial relief and then the pain comes right back. He has had some subjective fever and chills. He has not been eating or drinking much and he reports some constipation in the last couple days. He has not had black or bloody stools. He reports not previously having problems like this before. He has COPD and reports that his breathing is about baseline for him. He has almost quit smoking taking 1/2-1 cigarette per day but even skipping some days. He quit drinking about a month ago. At that time he did have some mild withdrawal shakiness but otherwise tolerated it well. Review of Systems Narrative: In addition to his abdominal pain he reports he has had longstanding burning in his feet. This has previously been diagnosed as a peripheral neuropathy. Medical Decision Making Medical Decision Making Has patient completed a Health Care Directive: No PFSH PFSH Medical History Peripheral vascular disease ?I73.9 - Peripheral vascular disease, unspecified (ICD-10) Portal hypertension ?K76.6 - Portal hypertension (ICD-10) History of alcohol abuse ?F10.11 - Alcohol abuse, in remission (ICD-10) Hepatitis C ?B19.20 - Unspecified viral hepatitis C without hepatic coma (ICD-10) Cholelithiasis ?K80.20 - Calculus of gallbladder without cholecystitis without obstruction (ICD-10) Peripheral neuropathy ?G62.9 - Polyneuropathy, unspecified (ICD-10) COPD (chronic obstructive pulmonary disease) ?J44.9 - Chronic obstructive pulmonary disease, unspecified (ICD-10) Cirrhosis of liver ?K74.60 - Unspecified cirrhosis of liver (ICD-10) History of intravenous drug use ?Z87.898 - Personal history of other specified conditions (ICD-10) Surgical History History of tonsillectomy ?Z90.89 - Acquired absence of other organs (ICD-10) History of appendectomy ?Z90.49 - Acquired absence of other specified parts of digestive tract (ICD-10) History of open reduction and internal fixation (ORIF) procedure ?Z98.890 - Other specified postprocedural states (ICD-10) Social History (Updated 05/13/25 @ 13:25 by Matthieu Raymond MD) Narrative: He lives alone in [place]. Closest family is his son Jake who lives in [place]. Jake would be healthcare power of deputy commonwealth's attorney. Code status is full. Previous history of chronic alcohol abuse but reports sobriety for the last month. Longstanding history of smoking but now cut down to 1/2-1 cigarette per day. What is your current living situation?: I presently have a place to live Problems where you live: pests, such as bugs, ants, or mice In the past 12 months, utilities in danger of being shut off: declined to answer In past 12 months, lack of transportation kept you from medical appts, meetings, work, or getting things needed for daily living: declined to answer In the past 12 mos, have been you worried that your food would run out before you had money to buy more?: declined to answer In the past 12 mos, the food you bought just didn't last and you didn't have money to buy more?: declined to answer Smoking Status: Current every day smoker What tobacco products do you use: cigarettes Smoking packs per day: 0.25 Smoking cigarettes per day: 5.0 Years smoked: 55 Smoking pack-years: 13.75 Second hand tobacco smoke exposure: Yes Non-prescribed substance use: denies use How often does anyone, including family, friends and others, physically hurt you: never How often does anyone, including family, friends and others, insult or talk down to you: never How often does anyone, including family, friends and others, threaten you with harm: never How often does anyone, including family, friends and others, scream or curse at you: never service: No Health Related Social Needs: Inadequate housing (Z59.1) Meds Home Medications and Allergies Home Medications ?Medication ?Instructions ?Recorded ?Confirmed ?Type albuterol sulfate 90 mcg/actuation 1 inh inhalation Q6H PRN shortness 03/26/25 05/13/25 Rx aerosol inhaler of breath or wheezing #8.5 grams ipratropium 0.5 mg-albuterol 3 mg 3 ml inhalation Q6H PRN #90 mL 03/26/25 05/13/25 Rx (2.5 mg base)/3 mL nebulization soln furosemide 20 mg tablet 20 mg PO DAILY #30 tabs 04/02/25 05/13/25 Rx Allergies Allergy/AdvReac Type Severity Reaction Status Date / Time carbidopa (From Sinemet) Allergy Unknown Palpitation Verified 05/13/25 10:13 s levodopa (From Sinemet) Allergy Unknown Palpitation Verified 05/13/25 10:13 s Exam Narrative: Exam Narrative: He is alert and oriented to his circumstances. He appears in [id number] distress with his pain. Eyes: Normal without scleral icterus. Head is atraumatic. Oropharynx with dry mucous membranes. Neck is supple without mass or adenopathy. He does have prominent right external jugular distension without other jugular venous distension. Respirations with diffusely diminished breath sounds but no wheezing. Cardiovascular: S1, S2, regular rate and rhythm. 2/6 systolic murmur heard best at the right and left upper sternal borders. Abdomen: Bowel sounds are present. Abdomen is without tenderness. Chest wall anteriorly is also without tenderness he has no back tenderness or flank tenderness. External genitalia normal. Extremities are somewhat cool to touch. Diminished pedal pulses. Intact sensation. No significant ulcerations. No jaundice. No rash. Const: Vital Signs, click to edit/add: Vital Signs - 24 hr 05/13/25 10:05 05/13/25 10:38 05/13/25 10:47 Temperature 37.1 C Pulse Rate 87 Pulse Rate [Pulse Oximeter] 74 Respiratory Rate 18 17 Blood Pressure 169/94 H Blood Pressure [Le ft Upper Arm] 187/79 H Pulse Oximetry 95 94 Oxygen Delivery Me thod Room Air 05/13/25 10:48 05/13/25 11:00 05/13/25 11:03 Temperature Pulse Rate 89 86 92 Pulse Rate [Pulse Oximeter] Respiratory Rate 15 21 Blood Pressure 143/86 H Blood Pressure [Le ft Upper Arm] Pulse Oximetry 94 94 94 Oxygen Delivery Me thod 05/13/25 11:04 05/13/25 11:15 05/13/25 11:23 Temperature Pulse Rate 74 81 89 Pulse Rate [Pulse Oximeter] Respiratory Rate 14 18 Blood Pressure 145/82 H Blood Pressure [Le ft Upper Arm] Pulse Oximetry 95 91 92 Oxygen Delivery Me thod 05/13/25 11:24 05/13/25 11:30 05/13/25 11:42 Temperature Pulse Rate 80 80 76 Pulse Rate [Pulse Oximeter] Respiratory Rate 18 17 Blood Pressure 147/85 H Blood Pressure [Le ft Upper Arm] Pulse Oximetry 93 92 93 Oxygen Delivery Me thod 05/13/25 11:45 05/13/25 12:00 05/13/25 12:02 Temperature Pulse Rate 74 84 84 Pulse Rate [Pulse Oximeter] Respiratory Rate 18 18 18 Blood Pressure 156/87 H Blood Pressure [Le ft Upper Arm] Pulse Oximetry 92 92 93 [facility] 05/13/25 12:15 05/13/25 12:22 05/13/25 12:30 Temperature Pulse Rate 86 88 92 Pulse Rate [Pulse Oximeter] Respiratory Rate 17 17 12 Blood Pressure 149/95 H Blood Pressure [Le ft Upper Arm] Pulse Oximetry 95 92 95 [facility] 05/13/25 12:42 05/13/25 12:45 Temperature Pulse Rate 96 84 Pulse Rate [Pulse Oximeter] Respiratory Rate 16 17 Blood Pressure 159/93 H Blood Pressure [Le ft Upper Arm] Pulse Oximetry 91 94 Oxygen Delivery [facility] Hospitalist - H&P: Result Labs Labs: Short CBC 05/13/25 Range/Units 10:40 WBC 7.31 (4.50-11.00) K/uL Hgb 15.4 (13.5-17.5) gm/dL Hct 44.8 (37.0-53.0) % Plt Count 141 (140-440) K/uL [facility] 05/13/25 10:40 Sodium 136 Potassium 3.6 Chloride 102 Carbon Dioxide 28 BUN 18 Creatinine 0.9 Glucose 145 H Calcium 13.3 H* Liver Function 05/13/25 Range/Units 10:40 Total Bilirubin 3.4 H (0.1-1.5) mg/dL AST 78 H (12-35) U/L ALT 54 H (4-50) U/L Alkaline Phosphatase 145 (40-150) U/L Albumin 3.6 (3.3-5.0) g/dL
[2025-05-13] MEDS: MORPHINE 4 MG/ML INJ 2 MG IVP (13:40)
[2025-05-13] MEDS: PANTOPRAZOLE SODIUM 40 MG INJ IVP (13:40)
[2025-05-13 14:08] LABS: Procalcitonin* 0.10 ng/mL (<0.50)
[2025-05-13 14:24] LABS: Lactate* 2.4 mmol/L (0.5-1.9)
[2025-05-13] MEDS: GI COCKTAIL (VISC LIDO/ANTACID) 30 ML PO (14:25)
[2025-05-13 14:58] LABS: NT Pro B Type NatriureticPept* 763 pg/mL (See Note)
--- NOTE | 2025-05-13 18:48 | PC.NURSE ---
End of shift [id number]: Pt AxOx3, pleasant, and cooperative with cares. Indep in room. Continent of bladder. Tolerating regular diet well. Denies chest pain during shift. Denies nausea. Pt reports I am finally able to sleep, I had not been able to for awhile because of the pain. Pt in bed with call light in reach.
[2025-05-13] MEDS: IPRAT-ALBUT 0.5-2.5 MG/3 ML NEB 1 NEB IH (20:01)
--- NOTE | 2025-05-13 20:31 | W.PM.CROSSCO ---
Subjective Subjective Interval history: Patient's abdominal pain is consistent with acute pancreatitis that is why I added lipase test this afternoon and it came back 10 times the normal (2890). Acute pancreatitis diagnosis is met by 2/3 criteria ( characteristic abdominal pain and elevated lipase). Acute pancreatitis likely secondary to alcohol use disorder, versus hypercalcemia, versus gallbladder stones (as his abdomen CT shows stones in the gallbladder), versus other infrequent causes like hypertriglyceridemia. Objective Objective Data Details: Lipase ~ 3000 Calcium 13.3 Elevated AST/ALT Assessment and Plan Assessment and plan (1) Acute pancreatitis: Problem comment: Acute pancreatitis diagnosis is met by 2/3 criteria ( characteristic abdominal pain and elevated lipase). lipase test this afternoon and it came back 10 times the normal (2890). Acute pancreatitis likely secondary to alcohol use disorder, versus hypercalcemia (though it is a rare cause of acute pancreatitis), versus gallbladder stones (as his abdomen CT shows stones in the gallbladder), versus other infrequent causes like hypertriglyceridemia. Status: Acute Plan - repeat calcium level and give another 500 mL bolus of normal saline. - I increased IV fluid maintenance to 150 mL/hour. - Added one more lab, triglycerides. - if patient does not improve with IV fluids, might consider more imaging in the morning to rule out gallbladder stones as the cause of his pancreatitis.
[2025-05-13 20:43] LABS: Triglycerides* 57 mg/dL (40-149)
[2025-05-13] MEDS: OMEPRAZOLE 20 MG CAPSULE DR PO (20:50)
[2025-05-13] MEDS: ENOXAPARIN 40 MG/0.4 ML INJ SUBCUT (20:51)
[2025-05-13] MEDS: 0.9 % SODIUM CHLORIDE 500 ML 500 ML IV (21:02)
--- NOTE | 2025-05-13 21:31 | PC.NURSE ---
Chart accessed to update lab of new order along with hanging IV fluids for patient's primary nurse while this nurse was in another patient room. Pt's primary RN aware.
[2025-05-13] MEDS: MELATONIN 3 MG TABLET PO (22:13)
[2025-05-13 22:16] LABS: Lactate* 1.8 mmol/L (0.5-1.9)
[2025-05-13 22:36] LABS: Calcium* 10.1 mg/dL (8.4-10.6)
[2025-05-14] VITALS (7 sets, daily range): BP systolic 92–109; BP diastolic 56–69; PULSE 77–91; RESP 18–20; TEMP 36.3–36.8; O2SAT 88–92; BMI 21.2
[2025-05-14] MEDS: IPRAT-ALBUT 0.5-2.5 MG/3 ML NEB 1 NEB IH ×2 (02:58→23:02)
[2025-05-14 06:23] LABS: Lactate* 1.6 mmol/L (0.5-1.9)
[2025-05-14 06:37] LABS: Hematocrit* 39.7 % (37.0-53.0); Hemoglobin* 13.1 gm/dL (13.5-17.5); Immature Granulocytes Abs Auto 0.02 K/uL (0.00-0.30); Immature Granulocytes Pct Auto 0.2 %; Lymphocytes Absolute Auto 2.36 K/uL (0.90-2.90); Mean Corpuscular HGB Conc 33 gm/dL (32-36); Mean Corpuscular Hemoglobin 34 pg (26-34); Mean Corpuscular Volume 102 fL (80-100); RDW Coefficient of Variation % 13.7 % (11.5-15.5); Red Blood Count* 3.90 m/uL (4.30-5.90); White Blood Count* 9.47 K/uL (4.50-11.00)
--- NOTE | 2025-05-14 06:38 | CRLHL7_ITS ---
For Patients: As a result of the Century Cures Act, medical imaging exams and procedure reports are released immediately into your electronic medical record. You may view this report before your referring provider. If you have questions, please contact your health care provider. Indication: Cholelithiasis. Pancreatitis. Technique: Ultrasound of abdomen was performed limited to the structures discussed below Comparison: Portions of a CT dated May 13, 2025 Findings: The gallbladder is abnormal. There is wall thickening up to 9 millimeters. This was not present on the prior study. No definite pericholecystic fluid. Greater than 3 millimeters is generally considered abnormal. The common duct measures 7 millimeters which is minimally prominent. No reported sonographic Lombardi sign Impression: There is cholelithiasis. There is wall thickening which was not evident on the CT of May 13, 2025. The common duct measures 7 millimeters which is minimally prominent. The new thickening of the gallbladder wall suggest developing acute cholecystitis in the appropriate clinical setting. Dictated by Justin He MD @ 05/14/2025 7:44:30 AM (Electronically Signed)
[2025-05-14 06:40] LABS: Slide Review Reflex No
[2025-05-14 06:43] LABS: Albumin* 2.6 g/dL (3.3-5.0); Chloride* 108 mmol/L (96-114); Sodium* 135 mmol/L (135-149)
[2025-05-14 06:44] LABS: Potassium* 3.4 mmol/L (3.6-5.1)
[2025-05-14 06:46] LABS: Alanine Aminotransferase* 38 U/L (4-50); Alkaline Phosphatase* 137 U/L (40-150); Anion Gap 2 mEq/L (7-15); Aspartate Amino Transferase* 60 U/L (12-35); Bilirubin Direct* 0.6 mg/dL (0.0-0.5); Bilirubin Total* 1.9 mg/dL (0.1-1.5); Blood Urea Nitrogen* 20 mg/dL (7-30); Calcium* 9.6 mg/dL (8.4-10.6); Carbon Dioxide* 25 mmol/L (20-32); Creatinine* 1.1 mg/dL (0.5-1.5); Est. Creatinine Clearance* 61.67; Estimated Glomerular Filt Rate 74 ml/min; Glucose* 88 mg/dL (60-115); Total Protein* 5.7 g/dL (6.0-8.3)
[2025-05-14] MEDS: ALBUTEROL SULFATE 2.5 MG/3 ML VIAL.NEB NEB ×2 (06:49→19:39)
--- NOTE | 2025-05-14 07:32 | PC.NURSE ---
End of shift Note 251 Patient was pleasant and cooperative throughout shift. Afebrile. VSS. Patient complains of increased all over itchiness. aware. A&Ox3. Uses call light appropriately. Call light within reach.
--- NOTE | 2025-05-14 09:23 | PM.GSCN ---
History of Present Illness Consult details Date Seen: 05/14/25 Consult date: 05/14/25 Narrative: Myke is a 69-year-old male who presented to the hospital yesterday with several days of chest and abdominal pain. He states that on Tuesday he had a smoothie and then was drinking his coffee when around 4:00 p.m. he developed severe nausea and then chest pain which radiated down to his abdomen. He was taking baking soda and Tums for what he thought was heartburn. This only temporarily relieved his symptoms but because they persisted he was worried that it could be cardiac in nature so he eventually came in yesterday. He states that he had been constipated in the days preceding this. He has never had any other symptoms like this in the past. He is no longer having pain and states that he feels weak but otherwise feels back to normal. He has no history of a GI bleed and does not remember having an endoscopy. He does know that he has cirrhosis. He states that he has seen a liver specialist in the past but is not sure of their name. He recently established care with Dr. Rea and states that he has not had any alcohol since he saw him which was back in the beginning of March. He does smoke 1 cigarette per day. [facility] Medical History Peripheral vascular disease ?I73.9 - Peripheral vascular disease, unspecified (ICD-10) Portal hypertension ?K76.6 - Portal hypertension (ICD-10) History of alcohol abuse ?F10.11 - Alcohol abuse, in remission (ICD-10) Hepatitis C ?B19.20 - Unspecified viral hepatitis C without hepatic coma (ICD-10) Cholelithiasis ?K80.20 - Calculus of gallbladder without cholecystitis without obstruction (ICD-10) Peripheral neuropathy ?G62.9 - Polyneuropathy, unspecified (ICD-10) COPD (chronic obstructive pulmonary disease) ?J44.9 - Chronic obstructive pulmonary disease, unspecified (ICD-10) Cirrhosis of liver ?K74.60 - Unspecified cirrhosis of liver (ICD-10) History of intravenous drug use ?Z87.898 - Personal history of other specified conditions (ICD-10) Surgical History History of tonsillectomy ?Z90.89 - Acquired absence of other organs (ICD-10) History of appendectomy ?Z90.49 - Acquired absence of other specified parts of digestive tract (ICD-10) History of open reduction and internal fixation (ORIF) procedure ?Z98.890 - Other specified postprocedural states (ICD-10) Social History (Updated 05/13/25 @ 13:25 by Matthieu Raymond MD) Narrative: He lives alone in [place]. Closest family is his son Jake who lives in [place]. Jake would be healthcare power of workers compensation defense attorney. Code status is full. Previous history of chronic alcohol abuse but reports sobriety for the last month. Longstanding history of smoking but now cut down to 1/2-1 cigarette per day. What is your current living situation?: I presently have a place to live Problems where you live: pests, such as bugs, ants, or mice Problems where you live details: NA In the past 12 months, utilities in danger of being shut off: declined to answer In past 12 months, lack of transportation kept you from medical appts, meetings, work, or getting things needed for daily living: declined to answer In the past 12 mos, have been you worried that your food would run out before you had money to buy more?: declined to answer In the past 12 mos, the food you bought just didn't last and you didn't have money to buy more?: declined to answer Highest level of school completed/degree received: 9th grade Smoking Status: Current every day smoker What tobacco products do you use: cigarettes Smoking packs per day: 0.25 Smoking cigarettes per day: 5.0 Years smoked: 55 Smoking pack-years: 13.75 Second hand tobacco smoke exposure: Yes How often do you have a drink containing alcohol: never AUDIT-C Alcohol total score: 0 Non-prescribed substance use: denies use Caffeine: Yes How often does anyone, including family, friends and others, physically hurt you: never How often does anyone, including family, friends and others, insult or talk down to you: never How often does anyone, including family, friends and others, threaten you with harm: never How often does anyone, including family, friends and others, scream or curse at you: never service: No Health Related Social Needs: Inadequate housing (Z59.1) Meds Home Medications and Allergies Home Medications ?Medication ?Instructions ?Recorded ?Confirmed ?Type albuterol sulfate 90 mcg/actuation 1 inh inhalation Q6H PRN shortness 03/26/25 05/13/25 Rx aerosol inhaler of breath or wheezing #8.5 grams ipratropium 0.5 mg-albuterol 3 mg 3 ml inhalation Q6H PRN #90 mL 03/26/25 05/13/25 Rx (2.5 mg base)/3 mL nebulization soln furosemide 20 mg tablet 20 mg PO DAILY #30 tabs 04/02/25 05/13/25 Rx Allergies Allergy/AdvReac Type Severity Reaction Status Date / Time carbidopa (From Sinemet) Allergy Unknown Palpitation Verified 05/13/25 10:13 s levodopa (From Sinemet) Allergy Unknown Palpitation Verified 05/13/25 10:13 s Exam Narrative: Exam Narrative: General appearance: Alert, cooperative, and in no distress Eyes: PERRLA, eye lids clear, and sclera white HENT Head: Normocephalic Ears: External ears normal Pulmonary: Breathing nonlabored on room air Cardiovascular Heart: Regular rate Extremities: warm and well perfused Gastrointestinal Abdominal: Appendectomy scar in the right lower quadrant. No hernias. Patient is nontender. Abdomen is nondistended. Musculoskeletal: Extremities: Upper: Both upper extremities have normal joint range of motion and intact strength. Lower: Both lower extremities have normal joint range of motion and intact strength. Skin: Normal skin color, texture, and turgor. Neurologic: No focal deficits Psychiatric: Alert, oriented, cooperative, normal affect. Const: Vital Signs, click to edit/add: Vital Signs - 24 hr 05/13/25 10:05 05/13/25 10:38 05/13/25 10:47 Temperature 98.8 F Pulse Rate 87 Pulse Rate [Pulse Oximeter] 74 Respiratory Rate 18 17 Blood Pressure 169/94 H Blood Pressure [Le ft Upper Arm] 187/79 H Blood Pressure [Ri ght Arm] Pulse Oximetry 95 94 Oxygen Delivery Me thod Room Air Oxygen Flow Rate 05/13/25 10:48 05/13/25 11:00 05/13/25 11:03 Temperature Pulse Rate 89 86 92 Pulse Rate [Pulse Oximeter] Respiratory Rate 15 21 Blood Pressure 143/86 H Blood Pressure [Le ft Upper Arm] Blood Pressure [Ri ght Arm] Pulse Oximetry 94 94 94 Oxygen Delivery Me thod Oxygen Flow Rate 05/13/25 11:04 05/13/25 11:15 05/13/25 11:23 Temperature Pulse Rate 74 81 89 Pulse Rate [Pulse Oximeter] Respiratory Rate 14 18 Blood Pressure 145/82 H Blood Pressure [Le ft Upper Arm] Blood Pressure [Ri ght Arm] Pulse Oximetry 95 91 92 Oxygen Delivery Me thod Oxygen Flow Rate 05/13/25 11:24 05/13/25 11:30 05/13/25 11:42 Temperature Pulse Rate 80 80 76 Pulse Rate [Pulse Oximeter] Respiratory Rate 18 17 Blood Pressure 147/85 H Blood Pressure [Le ft Upper Arm] Blood Pressure [Ri ght Arm] Pulse Oximetry 93 92 93 Oxygen Delivery Me thod Oxygen Flow Rate 05/13/25 11:45 05/13/25 12:00 05/13/25 12:02 Temperature Pulse Rate 74 84 84 Pulse Rate [Pulse Oximeter] Respiratory Rate 18 18 18 Blood Pressure 156/87 H Blood Pressure [Le ft Upper Arm] Blood Pressure [Ri ght Arm] Pulse Oximetry 92 92 93 Oxygen Delivery Me thod Oxygen Flow Rate 05/13/25 12:15 05/13/25 12:22 05/13/25 12:30 Temperature Pulse Rate 86 88 92 Pulse Rate [Pulse Oximeter] Respiratory Rate 17 17 12 Blood Pressure 149/95 H Blood Pressure [Le ft Upper Arm] Blood Pressure [Ri ght Arm] Pulse Oximetry 95 92 95 Oxygen Delivery Me thod Oxygen Flow Rate 05/13/25 12:42 05/13/25 12:45 05/13/25 13:00 Temperature Pulse Rate 96 84 Pulse Rate [Pulse Oximeter] Respiratory Rate 16 17 16 Blood Pressure 159/93 H Blood Pressure [Le ft Upper Arm] Blood Pressure [Ri ght Arm] Pulse Oximetry 91 94 Oxygen Delivery Me thod Oxygen Flow Rate 05/13/25 13:06 05/13/25 13:15 05/13/25 13:15 Temperature 98.8 F Pulse Rate Pulse Rate [Pulse Oximeter] 88 Respiratory Rate 17 20 20 Blood Pressure Blood Pressure [Le ft Upper Arm] Blood Pressure [Ri ght Arm] 161/87 H Pulse Oximetry 92 92 Oxygen Delivery Me thod Room Air Room Air Oxygen Flow Rate 05/13/25 15:40 05/13/25 16:01 05/13/25 19:00 Temperature 97.8 F 98.1 F Pulse Rate 89 Pulse Rate [Pulse Oximeter] 90 98 Respiratory Rate 18 18 Blood Pressure Blood Pressure [Le ft Upper Arm] Blood Pressure [Ri ght Arm] 114/62 108/69 Pulse Oximetry 94 88 Oxygen Delivery Me thod Room Air Room Air Oxygen Flow Rate 05/13/25 22:30 05/13/25 22:34 05/14/25 03:00 Temperature 97.8 F 97.7 F Pulse Rate 90 Pulse Rate [Pulse Oximeter] 94 83 Respiratory Rate 18 18 Blood Pressure Blood Pressure [Le ft Upper Arm] Blood Pressure [Ri ght Arm] 106/67 100/61 Pulse Oximetry 90 92 Oxygen Delivery Me thod Room Air Nasal Cannula Oxygen Flow Rate 0.5 05/14/25 07:36 Temperature 97.6 F Pulse Rate Pulse Rate [Pulse Oximeter] 80 Respiratory Rate 18 Blood Pressure Blood Pressure [Le ft Upper Arm] Blood Pressure [Ri ght Arm] 106/69 Pulse Oximetry 89 Oxygen Delivery Me thod Room Air Oxygen Flow Rate Results Labs Labs: WBC 9.4 from 7.3 hgb 13.1 from 15.4 platelets 119 INR 1.38 Lactate today is 1.6 from 2.4 yesterday Calcium was 9.6 today from 13.3 yesterday Total bilirubin 1.9 from 3.4 yesterday, previously has been elevated Direct bilirubin today 0.6 AST 60 from 78 ALT is 38 from 54 Alkaline phosphatase is 137 Troponin is negative Lipase 2800 yesterday PTH 10.2 Imaging Additional studies: US abdomen 05/14/25 Indication: Cholelithiasis. Pancreatitis. Technique: Ultrasound of abdomen was performed limited to the structures discussed below Comparison: Portions of a CT dated May 13, 2025 Findings: The gallbladder is abnormal. There is wall thickening up to 9 millimeters. This was not present on the prior study. No definite pericholecystic fluid. Greater than 3 millimeters is generally considered abnormal. The common duct measures 7 millimeters which is minimally prominent. No reported sonographic Lombardi sign Impression: There is cholelithiasis. There is wall thickening which was not evident on the CT of May 13, 2025. The common duct measures 7 millimeters which is minimally prominent. The new thickening of the gallbladder wall suggest developing acute cholecystitis in the appropriate clinical setting. Dictated by Justin He MD @ 05/14/2025 7:44:[address] abdomen/pelvis 05/13/25 INDICATION: Abdominal pain TECHNIQUE: Volumetric helical scanning of the abdomen and pelvis was performed with 95 cc of Isovue 370 contrast material IV. Coronal and sagittal reconstructions were obtained. COMPARISON: Today`s chest CT, Cash`s abdomen MRI of 04/18/2025 and abdomen/pelvis CT of 03/26/2025 FINDINGS: No bowel inflammation or obstruction is demonstrated. A cirrhotic liver is again demonstrated. No liver neoplasm is apparent. A large splenorenal shunt is again demonstrated with gastric along varices and distal esophageal varices. The portal vein is small but patent. The spleen is normal. No ascites evident. Stones are again demonstrated in the gallbladder. The bile ducts are within normal limits. The spleen, adrenal glands and pancreas are negative. The kidneys are unremarkable. No lymphadenopathy is evident. No free fluid is demonstrated. The prostate is negative. The lung bases are essentially clear, and heart size is normal. IMPRESSION: 1. Etiology of abdominal pain not evident. 2. Cirrhotic liver without obvious neoplasm. 3. Portal venous hypertension manifested as a large splenorenal shunt as well as gastric and distal esophageal varices. 4. Cholelithiasis. Dictated by Matthieu Medel MD @ 05/13/2025 3:08:[address] 05/13/25 INDICATION: Chest pain, not otherwise specified. COMPARISON: None available. TECHNIQUE: CT pulmonary angiography with 95 cc of Isovue 370 intravenous contrast. Reconstructed multiplanar MIP series were done. Please note that all CT scans at this facility use dose modulation, iterative reconstruction, and/or weight-based dosing when appropriate to reduce radiation dose to as low as reasonably achievable. FINDINGS: THORAX Pulmonary Arterial Vasculature: Opacification of the pulmonary arterial tree is adequate for assessment of pulmonary embolism. No pulmonary embolism. Visualized Lower Neck: No lower cervical adenopathy. Lungs: No significant pulmonary findings. Mild bilateral upper lobe paraseptal emphysema. Bilateral lower lobe posterior/dependent subpleural hypoventilatory changes. Pleura: No pleural effusion. No pneumothorax. Mediastinum: Thoracic aorta and pulmonary trunk are normal in caliber. Mild right coronary atherosclerotic calcification. Trachea and esophagus are normal in appearance. No mediastinal lymphadenopathy. ABDOMEN Visualized Upper Abdomen: Cirrhotic liver. Gastric fundal varices consistent with portal hypertension. Please refer to the separate report of the same day abdominopelvic CT. [employer] No acute or significant incidental findings. Bilateral symmetrical gynecomastia is noted incidentally. IMPRESSION: 1. No pulmonary embolism. No other findings to explain the history of chest pain, not otherwise specified in the indication for the examination. 2. Cirrhotic liver and gastric fundal varices demonstrated to better advantage on the contrast-enhanced abdominopelvic CT of the same day. Please refer to the separate report of the same day abdominopelvic CT. Dictated by Jacob Snyder MD @ 05/13/2025 2:35:19 PM Progress Note:A&P Assessment and plan (1) Acute pancreatitis: Status: Acute (2) Hypercalcemia: Status: Acute (3) Portal hypertension: Status: Acute (4) Cholelithiasis: Status: Acute (5) COPD (chronic obstructive pulmonary disease): Status: Acute (6) Abdominal pain: Status: Acute Plan The patient is a 69-year-old male with cirrhosis from alcohol use, currently abstaining, with portal hypertension and esophageal and intra-abdominal varices, low platelets, gallstones, and pancreatitis. I reviewed his imaging studies, prior laboratory values from past admissions and outside hospital records. 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 Could represent reflux type symptoms based on patient's description. Also could potentially represent gallstone pancreatitis versus cholecystitis. -patient currently has no abdominal pain and labs are improving - LFTs at baseline are elevated, and pancreatitis is certainly explained by hypercalcemia, therefore I think an expectant approach is acceptable. If patient's labs worsen or if he develops worsening pain then I would recommend MRCP to look for choledocholithiasis. -regarding finding of possible gallbladder wall thickening on ultrasound, patient is not having any abdominal pain, he did receive fluid resuscitation and also has cirrhosis, all which can cause gallbladder wall thickening. He is a very poor candidate for cholecystectomy. He would not be a candidate for cholecystectomy our facility. Rather if he did have cholecystitis cholecystostomy tube or referral to hepatobiliary surgery would be warranted. -discussed possibility of endoscopy to evaluate for esophagitis or gastritis. Patient does have both gastric and esophageal varices. I think because he is high risk from the standpoint it is reasonable to start an antacid medication and treat empirically. If he has ongoing symptoms then endoscopy could be considered with GI specialist. -the patient is agreeable with this plan.
[2025-05-14] MEDS: OMEPRAZOLE 20 MG CAPSULE DR PO ×2 (09:35→21:12)
--- NOTE | 2025-05-14 12:15 | P.IMPN_ITS ---
Assessment and Plan Assessment and plan (1) Abdominal pain: Problem comment: Present with chest pain. Patient has partially responded to antacids. Continue empiric treatment and ongoing evaluation for abdominal pain Improved. Considerations include GERD, esophagitis, gastritis, peptic ulcer, pancreatitis, cholecystitis. Advance diet, ppi and follow. Status: Acute (2) Chest pain: Problem comment: Mostly resolved. Uncertain cause. Seems correlated with abdominal pain. Possibly related to esophageal disease, pancreatitis, cholecystitis? Continue evaluation for cardiac, pulmonary, GI causes. Patient has partially responded to antacids. Continue PPI. Monitor for complicating cardia respiratory conditions. Status: Acute (3) Nausea: Problem comment: Better, Likely related to chest pain and abdominal pain continue to evaluate and treat. Status: Acute (4) COPD (chronic obstructive pulmonary disease): Problem comment: Continue home treatments. Appears to not have severe exacerbation at this time. Status: Acute (5) Cholelithiasis: Problem comment: Uncertain if gallstones are contributing to current symptoms. Continue to assess for cholecystitis and gallstone pancreatitis. Patient is a poor candidate for surgical intervention which would need to be done at a tertiary care facility Status: Acute (6) Acute pancreatitis: Problem comment: Elevated lipase with normal CT and exam on admission. Differential diagnosis includes gallstone pancreatitis, alcohol related pancreatitis and hypercalcemia. Continue to monitor. Status: Acute (7) Hypercalcemia: Problem comment: Normal vitamin-D level and suppressed PTH level. Suspected due to heavy ingestion of Tums plus milk and bicarbonate to treat his chest and abdominal pain, milk alkali syndrome. Status: Acute (8) Hypomagnesemia: Problem comment: Replace with IV and oral. Status: Acute (9) Heart murmur, systolic: Problem comment: No previous history of heart murmur. No heart failure symptoms. Outpatient follow-up unless he becomes symptomatic Status: Acute (10) Peripheral vascular disease: Problem comment: Abdominal CT scan on 03/26/2025 shows Severe atherosclerosis with suspected multifocal high-grade stenosis in the iliac and proximal lower extremity arteries. Status: Acute (11) Portal hypertension: Problem comment: With esophageal varices and splenorenal shunt. Borderline low platelets. Continue to monitor. Status: Acute (12) Does not have health insurance: Problem comment: Reluctant to receive Medicare/government assistance and cannot afford private insurance. Status: Acute (13) Peripheral neuropathy: Problem comment: From electrocution ~1999 as well as chronic alcohol abuse and or hepatitis C Status: Chronic (14) Hepatitis C: Problem comment: Never got treated due to the expense of medications Status: Chronic (15) History of alcohol abuse: Problem comment: Reports abstinence for the last month. Abnormal bilirubin and transaminases. Status: Acute (16) Shortness of breath: Problem comment: Chronic with acute exacerbations. 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 Curiel . MRI showed moderate to severe cerebellar atrophy. Has impaired gait and balance Status: Chronic (18) Cigarette nicotine dependence: Problem comment: Encourage abstinence. Smoking minimally now Status: Chronic (19) Depression with anxiety: Status: Chronic (20) Liver mass: Problem comment: MRI from 04/18/2025: MRI of the abdomen without and with intravenous contrast; precontrast T1 and T2 weighted imaging; T2 haste imaging; diffusion-weighted imaging; in and out of phase imaging; postcontrast imaging including subtraction; 20 cc of clariscan contrast was injected IV. Findings: Cirrhotic liver morphology with evidence of portal hypertension, splenomegaly and extensive portosystemic communications and splenorenal shunt. Esophageal varices. Markedly attenuated portal venous flow into the liver. Several nonspecific arterially enhancing lesions in the right hepatic lobe without any washout on the venous phase imaging. No washout on the delayed imaging. Gallstones. No adrenal pathology. Kidneys are unremarkable. No evidence of abdominal ascites. Impression : 1. Cirrhotic liver morphology with evidence of portal hypertension and extensive portosystemic communications. 2. Several small arterially enhancing lesions identified in the liver without washout on the venous phase imaging; LR 3 lesions; follow-up suggested. 3. Cholelithiasis. Status: Acute Plan 69-year-old male admitted to the hospital with severe chest and abdominal pain now largely resolved. Diagnostic considerations are multiple potential conditions including esophagitis, gastritis, cholecystitis, pancreatitis. Associated with this he has hypercalcemia which has resolved and hypo magnesemia. Continue in-hospital to monitor for recurrent symptoms as we advanced his diet. 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 He reports that the pain is from his upper mid chest all the way down to his lower mid abdomen. Pain is constant. Nothing obviously makes it worse. It is associated with fairly severe nausea. He had 1 nonbloody emesis today but otherwise has not been vomiting. He has been taking Maalox and taking Tums 2 tablets every hour for the last day to treat his chest and abdominal pain. He reports he gets some partial relief and then the pain comes right back. He has had some subjective fever and chills. He has not been eating or drinking much and he reports some constipation in the last couple days. He has not had black or bloody stools. He reports not previously having problems like this before. He has COPD and reports that his breathing is about baseline for him. He has almost quit smoking taking 1/2-1 cigarette per day but even skipping some days. He quit drinking about a month ago. At that time he did have some mild withdrawal shakiness but otherwise tolerated it well. 05/14/2025: Patient had elevated lipase yesterday with normal CT scan and examination. Patient reports feeling much better today. Exam Narrative: Exam Narrative: He is alert and appears in no distress. Dry mucous membranes. Breathing room air. Respirations with diminished breath sounds. No wheezing rales or rhonchi. Cardiovascular: S1, S2, regular rate and rhythm. Abdomen: Bowel sounds active. Abdomen is soft without tenderness or mass. Extremities without edema. Const: Vital Signs, click to edit/add: Vital Signs - 24 hr 05/13/25 12:22 05/13/25 12:30 05/13/25 12:42 Temperature Pulse Rate 88 92 96 Pulse Rate [Pulse Oximeter] Respiratory Rate 17 12 16 Blood Pressure 149/95 H 159/93 H Blood Pressure [Ri ght Arm] Pulse Oximetry 92 95 91 Oxygen Delivery Me thod Oxygen Flow Rate 05/13/25 12:45 05/13/25 13:00 05/13/25 13:06 Temperature Pulse Rate 84 Pulse Rate [Pulse Oximeter] Respiratory Rate 17 16 17 Blood Pressure Blood Pressure [Ri ght Arm] Pulse Oximetry 94 Oxygen Delivery Me thod Oxygen Flow Rate 05/13/25 13:15 05/13/25 13:15 05/13/25 15:40 Temperature 37.1 C 36.6 C Pulse Rate Pulse Rate [Pulse Oximeter] 88 90 Respiratory Rate 20 20 18 Blood Pressure [facility] 161/87 H 114/62 Pulse Oximetry 92 92 94 Oxygen Delivery Me thod Room Air Room Air Room Air Oxygen Flow Rate 05/13/25 16:01 05/13/25 19:00 05/13/25 22:30 Temperature 36.7 C 36.6 C Pulse Rate 89 Pulse Rate [Pulse Oximeter] 98 94 Respiratory Rate 18 18 Blood Pressure Blood Pressure [Nh ght Arm] 108/69 106/67 Pulse Oximetry 88 90 Oxygen Delivery Me thod Room Air Room Air Oxygen Flow Rate 05/13/25 22:34 05/14/25 03:00 05/14/25 07:36 Temperature 36.5 C 36.4 C Pulse Rate 90 Pulse Rate [Pulse Oximeter] 83 80 Respiratory Rate 18 18 Blood Pressure [facility] 100/61 106/69 Pulse Oximetry 92 89 Oxygen Delivery Me thod Nasal Cannula Room Air Oxygen Flow Rate 0.5 05/14/25 08:02 05/14/25 10:52 Temperature 36.6 C Pulse Rate 91 Pulse Rate [Pulse Oximeter] 77 Respiratory Rate 18 Blood Pressure Blood [facility] 104/64 Pulse Oximetry 88 Oxygen Delivery Me thod Room Air Oxygen Flow Rate Labs Labs: Laboratory Results - last 24 hr 05/13/25 05/13/25 05/13/25 10:40 13:32 14:02 WBC RBC Hgb Hct MCV MCH MCHC RDW Coeff of Elizabeth Plt Count Neut % (Auto) Lymph % (Auto) Wilcox % (Auto) Eos % (Auto) Baso % (Auto) Neut # (Auto) Lymph # (Auto) Wilcox # (Auto) Eos # (Auto) Baso # (Auto) Abs Immat Gran (auto) Imm/Tot Granulo (auto) Sodium Potassium Chloride Carbon Dioxide Anion Gap BUN Creatinine Estimated Creat Clear Estimated GFR Glucose Lactate 2.4 H Calcium Magnesium Total Bilirubin Direct Bilirubin AST ALT Alkaline Phosphatase Troponin I 0.02 NT-Pro-B Natriuret Pep 763 H Total Protein Albumin Triglycerides 57 Lipase 2899 H 25-OH Vitamin D Total 33 Procalcitonin 0.10 TSH 1.860 PTH Intact 10.2 L Lab Acknowledgement Test Added 05/13/25 05/13/25 05/13/25 14:23 14:50 20:27 WBC RBC Hgb Hct MCV MCH MCHC RDW Coeff of Elizabeth Plt Count Neut % (Auto) Lymph % (Auto) Wilcox % (Auto) Eos % (Auto) Baso % (Auto) Neut # (Auto) Lymph # (Auto) Wilcox # (Auto) Eos # (Auto) Baso # (Auto) Abs Immat Gran (auto) Imm/Tot Granulo (auto) Sodium Potassium Chloride Carbon Dioxide Anion Gap BUN Creatinine Estimated Creat Clear Estimated GFR Glucose Lactate Calcium Magnesium Total Bilirubin Direct Bilirubin AST ALT Alkaline Phosphatase Troponin I NT-Pro-B Natriuret Pep Total Protein Albumin Triglycerides Lipase 25-OH Vitamin D Total Procalcitonin TSH PTH Intact Lab Acknowledgement Test Added Test Added Test Added 05/13/25 05/14/25 22:12 06:07 WBC 9.47 RBC 3.90 L Hgb 13.1 L Hct 39.7 MCV 102 H MCH 34 MCHC 33 RDW Coeff of Elizabeth 13.7 Plt Count 119 L Neut % (Auto) 62.0 Lymph % (Auto) 24.9 Wilcox % (Auto) 10.8 Eos % (Auto) 1.4 Baso % (Auto) 0.7 Neut # (Auto) 5.87 Lymph # (Auto) 2.36 Wilcox # (Auto) 1.00 H Eos # (Auto) 0.13 Baso # (Auto) 0.07 Abs Immat Gran (auto) 0.02 Imm/Tot Granulo (auto) 0.2 Sodium 135 Potassium 3.4 L Chloride 108 Carbon Dioxide 25 Anion Gap 2 L BUN 20 Creatinine 1.1 Estimated Creat Clear 61.67 Estimated GFR 74 Glucose 88 Lactate 1.8 1.6 Calcium 10.1 9.6 Magnesium 1.6 Total Bilirubin 1.9 H Direct Bilirubin 0.6 H AST 60 H ALT 38 Alkaline Phosphatase 137 Troponin I 0.02 NT-Pro-B Natriuret Pep Total Protein 5.7 L Albumin 2.6 L Triglycerides Lipase 25-OH Vitamin D Total Procalcitonin TSH PTH Intact Lab Acknowledgement
--- NOTE | 2025-05-14 13:05 | PC.SOCIAL ---
Addendum entered by ZA Titus 05/14/25 13:14: Social work consult: [facility] and [facility] both have [employer] Navigators that could assist the pt with applying for MA. Pt states he will think about it. Social work to follow-up as needed. Original Note: Social work consult: forestry conservation worker met with pt to discuss health insurance. Pt has Medicare Part A for insurance and states that he is not interested in getting a supplement due to having issues with his supplement in the past. Pt agreed to take information from this addiction social worker on local agencies that he can go to to get assistance with applying for MA as a supplement to his Medicare Part A. Two local agencies that the pt could go to are [facility] or [facility]. Pt states that his son Jake's knows a lot about insurance and will help him with applying for MA, as well, if he decides to look into it. Social work to follow-up as needed.
--- NOTE | 2025-05-14 13:26 | PC.NURSE ---
Patient has been upset with having a bed alarm in place. Per Dr. Raymond it is ok to leave bed alarm off at patient is at his baseline.
--- NOTE | 2025-05-14 18:50 | PC.NURSE ---
End of shift [id number]: Pt AxOx3. Indep in room due to increased agitation in the afternoon from bed alarm being in place, MD Raymond okayed. TELE order discontinued per MD Raymond due to increased agitation. Continent of bladder. Tolerating regular diet well. Denies chest/abd pain during shift. Denies nausea. Pt reported head to toe itchiness that was updated to MD. PRN medication ordered. Pt denied needing PRN medication during shift due to improvement. IV SL. Pt in bed with call light in reach.
[2025-05-14] MEDS: MAGNESIUM OXIDE 400 MG TABLET PO (21:12)
[2025-05-14] MEDS: ENOXAPARIN 40 MG/0.4 ML INJ SUBCUT (21:12)
[2025-05-14] MEDS: SODIUM CHLORIDE 0.9 % (FLUSH) 10 ML SYRINGE 5 ML IVF (21:12)
[2025-05-15] MEDS: ALBUTEROL SULFATE 2.5 MG/3 ML VIAL.NEB NEB (02:57)
[2025-05-15 03:00] VITALS: BP 114/68; PULSE 89; RESP 20; TEMP 36.5; O2SAT 89
[2025-05-15] MEDS: ACETAMINOPHEN 325 MG TABLET 650 MG PO (06:09)
[2025-05-15 06:19] LABS: Hematocrit* 39.4 % (37.0-53.0); Hemoglobin* 13.1 gm/dL (13.5-17.5); Immature Granulocytes Abs Auto 0.01 K/uL (0.00-0.30); Immature Granulocytes Pct Auto 0.1 %; Lymphocytes Absolute Auto 2.12 K/uL (0.90-2.90); Mean Corpuscular HGB Conc 33 gm/dL (32-36); Mean Corpuscular Hemoglobin 34 pg (26-34); Mean Corpuscular Volume 102 fL (80-100); RDW Coefficient of Variation % 13.5 % (11.5-15.5); Red Blood Count* 3.88 m/uL (4.30-5.90); White Blood Count* 6.92 K/uL (4.50-11.00)
[2025-05-15 06:25] LABS: Slide Review Reflex No
--- NOTE | 2025-05-15 06:30 | PC.NURSE ---
End of shift Note 251 Patient was pleasant and cooperative throughout shift. VSS. Afebrile. SBA. A&Ox3. Uses call light appropriately. Call light within reach.
[2025-05-15 06:34] LABS: Albumin* 2.4 g/dL (3.3-5.0); Chloride* 109 mmol/L (96-114); Potassium* 3.4 mmol/L (3.6-5.1); Sodium* 137 mmol/L (135-149)
[2025-05-15 06:37] LABS: Alanine Aminotransferase* 35 U/L (4-50); Alkaline Phosphatase* 162 U/L (40-150); Anion Gap 3 mEq/L (7-15); Aspartate Amino Transferase* 54 U/L (12-35); Bilirubin Direct* 0.5 mg/dL (0.0-0.5); Bilirubin Total* 1.8 mg/dL (0.1-1.5); Blood Urea Nitrogen* 20 mg/dL (7-30); Calcium* 9.0 mg/dL (8.4-10.6); Carbon Dioxide* 25 mmol/L (20-32); Creatinine* 0.9 mg/dL (0.5-1.5); Est. Creatinine Clearance* 71.37; Estimated Glomerular Filt Rate 94 ml/min; Glucose* 91 mg/dL (60-115); Total Protein* 5.5 g/dL (6.0-8.3)
[2025-05-15 07:35] LABS: Cannabinoid Screen Urine Negative (Negative); Methamphetamines Screen Urine Negative (Negative); Tricyclic Antidepressant Urine Negative (Negative)
[2025-05-15 07:55] LABS: Appearance Urine Clear (Clear)
[2025-05-15 08:30] VITALS: BP 127/77; PULSE 84; RESP 16; O2SAT 92
[2025-05-15] MEDS: SENNOSIDES/DOCUSATE TABLET 2 TAB PO (09:52)
[2025-05-15] MEDS: POTASSIUM BICARB 25 MEQ EFFERVESCENT TAB PO (09:53)
[2025-05-15] MEDS: MAGNESIUM OXIDE 400 MG TABLET PO (09:53)
[2025-05-15] MEDS: OMEPRAZOLE 20 MG CAPSULE DR PO (09:53)
--- NOTE | 2025-05-15 11:14 | PM.DS1 ---
DS: Providers Provider Date Seen: 05/15/25 Date of admission: 05/13/25 12:41 Primary care physician: Nish Rea MD Admitting Clinician: Matthieu Raymond MD Attending Physician on discharge: Matthieu Raymond MD Date of Discharge: 05/15/25 DS: Diagnosis Discharge Diagnosis (1) Abdominal pain: Status: Acute Problem details: Present with chest and abdominal pain together. Patient has partially responded to antacids. Continue empiric treatment for dyspepsia and ongoing evaluation for abdominal pain. Improved. Considerations include GERD, esophagitis, gastritis, peptic ulcer, pancreatitis, cholecystitis. Advance diet, ppi and follow. (2) Chest pain: Status: Acute Problem details: Resolved during hospital stay. Uncertain cause. Seems correlated with abdominal pain. No apparent cardiopulmonary disease identified. Possibly related to esophageal disease, pancreatitis, cholecystitis? Continue evaluation for cardiac, pulmonary, GI causes. Patient has partially responded to antacids. Continue PPI. Monitor for complicating cardia respiratory conditions. If recurrent problems consider referral to [facility] specialists for EGD and/or evaluation for cholecystectomy. Patient is a poor candidate for surgical intervention due to portal hypertension (3) Nausea: Status: Acute Problem details: Resolved, Likely related to chest pain and abdominal pain continue to evaluate and treat. (4) COPD (chronic obstructive pulmonary disease): Status: Acute Problem details: Continue home treatments. Appears to not have severe exacerbation at this time. (5) Cholelithiasis: Status: Acute Problem details: Uncertain if gallstones are contributing to current symptoms. Continue to assess for cholecystitis and gallstone pancreatitis. Patient is a poor candidate for surgical intervention which would need to be done at a tertiary care facility (6) Acute pancreatitis: Status: Acute Problem details: Elevated lipase with normal CT and exam on admission. Differential diagnosis includes gallstone pancreatitis, alcohol related pancreatitis and hypercalcemia. (7) Hypercalcemia: Status: Acute Problem details: Normal vitamin-D level and suppressed PTH level. Suspected due to heavy ingestion of Tums plus milk and bicarbonate to treat his chest and abdominal pain, milk alkali syndrome. Moderate use of Tums and baking soda for management of dyspepsia (8) Hypomagnesemia: Status: Acute Problem details: Replace with IV and oral. (9) Heart murmur, systolic: Status: Acute Problem details: No previous history of heart murmur. No heart failure symptoms. Outpatient follow-up unless he becomes symptomatic (10) Peripheral vascular disease: Status: Acute Problem details: Abdominal CT scan on 03/26/2025 shows Severe atherosclerosis with suspected multifocal high-grade stenosis in the iliac and proximal lower extremity arteries. (11) Portal hypertension: Status: Acute Problem details: With esophageal varices and splenorenal shunt. Borderline low platelets. Continue to monitor. (12) Does not have health insurance: Status: Acute Problem details: Reluctant to receive Medicare/government assistance and cannot afford private insurance. (13) Peripheral neuropathy: Status: Chronic Problem details: From electrocution ~1999 as well as chronic alcohol abuse and or hepatitis C (14) Hepatitis C: Status: Chronic Problem details: Never got treated due to the expense of medications (15) History of alcohol abuse: Status: Acute Problem details: Reports abstinence for the last month. Abnormal bilirubin and transaminases. (16) Shortness of breath: Status: Chronic Problem details: Chronic with acute exacerbations. 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 Curiel . MRI showed moderate to severe cerebellar atrophy. Has chronically impaired gait and balance (18) Cigarette nicotine dependence: Status: Chronic Problem details: Encourage abstinence. Smoking minimally now (19) Depression with anxiety: Status: Chronic (20) Liver mass: Status: Acute Problem details: MRI from 04/18/2025: MRI of the abdomen without and with intravenous contrast; precontrast T1 and T2 weighted imaging; T2 haste imaging; diffusion-weighted imaging; in and out of phase imaging; postcontrast imaging including subtraction; 20 cc of clariscan contrast was injected IV. Findings: Cirrhotic liver morphology with evidence of portal hypertension, splenomegaly and extensive portosystemic communications and splenorenal shunt. Esophageal varices. Markedly attenuated portal venous flow into the liver. Several nonspecific arterially enhancing lesions in the right hepatic lobe without any washout on the venous phase imaging. No washout on the delayed imaging. Gallstones. No adrenal pathology. Kidneys are unremarkable. No evidence of abdominal ascites. Impression : 1. Cirrhotic liver morphology with evidence of portal hypertension and extensive portosystemic communications. 2. Several small arterially enhancing lesions identified in the liver without washout on the venous phase imaging; LR 3 lesions; follow-up suggested. 3. Cholelithiasis. DS: Summary Hospital Course Hospital Course: Myke Aggarwal is a 69 year old male with cirrhosis of the liver due to alcohol and hepatitis C, COPD, spinocerebellar ataxia, hypertension, peripheral neuropathy admitted to the hospital with a 3 day history of severe chest and abdominal pain. He reports that the pain is from his upper mid chest all the way down to his lower mid abdomen. Pain is constant. Nothing obviously makes it worse. It is associated with fairly severe nausea. He had 1 nonbloody emesis today but otherwise has not been vomiting. He has been taking Maalox and taking Tums 2 tablets every hour for the last day to treat his chest and abdominal pain. He reports he gets some partial relief and then the pain comes right back. He has had some subjective fever and chills. He has not been eating or drinking much and he reports some constipation in the last couple days. He has not had black or bloody stools. He reports not previously having problems like this before. He has COPD and reports that his breathing is about baseline for him. He has almost quit smoking taking 1/2-1 cigarette per day but even skipping some days. He quit drinking about a month ago. At that time he did have some mild withdrawal shakiness but otherwise tolerated it well. Patient was found to have elevated lipase as well. Unclear if the pancreatitis was the primary problem or secondary to hypercalcemia. Symptoms resolved quite quickly any tolerated diet quite well. His hypercalcemia and hypo magnesemia resolved quickly as well. Chest pain and abdominal pain resolved. He was able to eat a normal diet. Is respiratory status remains stable. Multiple problems identified during this hospital stay though uncertain as to what was the primary cause of his abdominal and chest pain that began 3 days prior to admission. Among the considerations are pancreatitis, cholecystitis, gastritis/peptic ulcer disease/esophagitis. If having recurrent problems as an outpatient consider referral to tertiary care provider for EGD or evaluation for cholecystectomy. Status at Discharge Functional status at discharge: uses cane/walker Overall status at discharge: patient is progressing back to baseline Time Spent with Patient Time attestation: Total time spent providing and/or coordinating discharge services: 45 minutes Exam Narrative: Exam Narrative: He is alert and appears in no distress. Respirations with diminished breath sounds but no wheezing rales or rhonchi. Fair air exchange all lung wiggins. Cardiovascular: S1, S2, 1/6 systolic murmur. No gallop no rub. Abdomen: Bowel sounds active. Abdomen is soft without tenderness or mass. Extremities without edema. Const: Vital Signs, click to edit/add: Vital Signs - 24 hr 05/14/25 15:25 05/14/25 19:00 05/14/25 23:00 Temperature 36.8 C 36.7 C 36.3 C L Pulse Rate [Pulse Oximeter] 79 84 87 Respiratory Rate 18 18 20 Blood Pressure [Le ft Arm] 109/56 L 94/62 103/64 Blood Pressure [Ri ght Arm] 92/56 L Pulse Oximetry 91 90 91 Oxygen Delivery Me thod Room Air Room Air Room Air 05/15/25 03:00 05/15/25 08:30 Temperature 36.5 C Pulse Rate [Pulse Oximeter] 89 84 Respiratory Rate 20 16 Blood Pressure [Le ft Arm] Blood Pressure [Ri ght Arm] 114/68 127/77 Pulse Oximetry 89 92 Oxygen Delivery Me thod Room Air Room Air DS: Data Data Completed and Pending Labs on day of discharge: Labs from last 24 hours 05/15/25 05/13/25 06:07 07:20 WBC 6.92 RBC 3.88 L Hgb 13.1 L Hct 39.4 MCV 102 H MCH 34 MCHC 33 RDW Coeff of Elizabeth 13.5 Plt Count 120 L Neut % (Auto) 47.0 Lymph % (Auto) 30.6 Cherry % (Auto) 12.4 H Eos % (Auto) 9.0 H Baso % (Auto) 0.9 Neut # (Auto) 3.25 Lymph # (Auto) 2.12 Cherry # (Auto) 0.90 Eos # (Auto) 0.60 H Baso # (Auto) 0.06 Abs Immat Gran (auto) 0.01 Imm/Tot Granulo (auto) 0.1 Sodium 137 Potassium 3.4 L Chloride 109 Carbon Dioxide 25 Anion Gap 3 L BUN 20 Creatinine 0.9 Estimated Creat Clear 71.37 Estimated GFR 94 Glucose 91 Calcium 9.0 Magnesium 1.6 Total Bilirubin 1.8 H Direct Bilirubin 0.5 AST 54 H ALT 35 Alkaline Phosphatase 162 H Total Protein 5.5 L Albumin 2.4 L Urine Color Yellow Urine Appearance Clear Urine pH 6.5 Ur Specific Clinton 1.020 Urine Protein Negative Urine Glucose (UA) Negative Urine Ketones Negative Urine Blood Trace-intact A Urine Nitrite Negative Urine Bilirubin Negative Urine Urobilinogen 0.2 Ur Leukocyte Esterase Negative Urine RBC 0-2 Urine WBC 0-2 Urine WBC Clumps Few A Ur Squamous Epith Cells Few Urine Bacteria Few A Urine Opiates Screen POSITIVE A Ur Oxycodone Screen Negative Urine Methadone Screen Negative Ur Barbiturates Screen Negative U Tricyclic Antidepress Negative Ur Phencyclidine Scrn Negative Ur Amphetamines Screen Negative U Methamphetamines Scrn Negative U Benzodiazepines Scrn Negative Urine Cocaine Screen Negative U Marijuana (THC) Screen Negative Ur Drug Screen Comment See Note Preliminary micro results at discharge 05/13/25 07:20 Urine Culture - Preliminary Urine,Clean Catch Culture in Progress 05/13/25 14:02 Blood Culture - Preliminary Blood NO GROWTH AFTER 24 HOURS 05/13/25 14:10 Blood Culture - Preliminary Blood NO GROWTH AFTER 24 HOURS Imaging US - abdomen: Radiologist's impression: Indication: Cholelithiasis. Pancreatitis. Technique: Ultrasound of abdomen was performed limited to the structures discussed below Comparison: Portions of a CT dated May 13, 2025 Findings: The gallbladder is abnormal. There is wall thickening up to 9 millimeters. This was not present on the prior study. No definite pericholecystic fluid. Greater than 3 millimeters is generally considered abnormal. The common duct measures 7 millimeters which is minimally prominent. No reported sonographic Lombardi sign Impression: There is cholelithiasis. There is wall thickening which was not evident on the CT of May 13, 2025. The common duct measures 7 millimeters which is minimally prominent. The new thickening of the gallbladder wall suggest developing acute cholecystitis in the appropriate clinical setting. CT scan - chest: Radiologist's impression: INDICATION: Chest pain, not otherwise specified. COMPARISON: None available. TECHNIQUE: CT pulmonary angiography with 95 cc of Isovue 370 intravenous contrast. Reconstructed multiplanar MIP series were done. Please note that all CT scans at this facility use dose modulation, iterative reconstruction, and/or weight-based dosing when appropriate to reduce radiation dose to as low as reasonably achievable. FINDINGS: THORAX Pulmonary Arterial Vasculature: Opacification of the pulmonary arterial tree is adequate for assessment of pulmonary embolism. No pulmonary embolism. Visualized Lower Neck: No lower cervical adenopathy. Lungs: No significant pulmonary findings. Mild bilateral upper lobe paraseptal emphysema. Bilateral lower lobe posterior/dependent subpleural hypoventilatory changes. Pleura: No pleural effusion. No pneumothorax. Mediastinum: Thoracic aorta and pulmonary trunk are normal in caliber. Mild right coronary atherosclerotic calcification. Trachea and esophagus are normal in appearance. No mediastinal lymphadenopathy. ABDOMEN Visualized Upper Abdomen: Cirrhotic liver. Gastric fundal varices consistent with portal hypertension. Please refer to the separate report of the same day abdominopelvic CT. SKELETON AND BODY WALL No acute or significant incidental findings. Bilateral symmetrical gynecomastia is noted incidentally. IMPRESSION: 1. No pulmonary embolism. No other findings to explain the history of chest pain, not otherwise specified in the indication for the examination. 2. Cirrhotic liver and gastric fundal varices demonstrated to better advantage on the contrast-enhanced abdominopelvic CT of the same day. Please refer to the separate report of the same day abdominopelvic CT. CT scan - abdomen: Radiologist's impression: NDICATION: Abdominal pain TECHNIQUE: Volumetric helical scanning of the abdomen and pelvis was performed with 95 cc of Isovue 370 contrast material IV. Coronal and sagittal reconstructions were obtained. COMPARISON: Today`s chest CT, Cash`s abdomen MRI of 04/18/2025 and abdomen/pelvis CT of 03/26/2025 FINDINGS: No bowel inflammation or obstruction is demonstrated. A cirrhotic liver is again demonstrated. No liver neoplasm is apparent. A large splenorenal shunt is again demonstrated with gastric along varices and distal esophageal varices. The portal vein is small but patent. The spleen is normal. No ascites evident. Stones are again demonstrated in the gallbladder. The bile ducts are within normal limits. The spleen, adrenal glands and pancreas are negative. The kidneys are unremarkable. No lymphadenopathy is evident. No free fluid is demonstrated. The prostate is negative. The lung bases are essentially clear, and heart size is normal. IMPRESSION: 1. Etiology of abdominal pain not evident. 2. Cirrhotic liver without obvious neoplasm. 3. Portal venous hypertension manifested as a large splenorenal shunt as well as gastric and distal esophageal varices. 4. Cholelithiasis. Discharge Plan Discharge Disposition: Home, Self-Care Date of Admission: 05/13/25 12:41 Attending Provider on Discharge: Matthieu Raymond Consulting Providers: Caridad Hair Primary Care Provider: Nish Rea Condition: Improved Anticipated Discharge Date/Time: 05/15/25 09:00 Discharge Medications: New omeprazole 40 mg capsule,delayed release(DR/EC) 40 mg PO DAILY Qty: 90 0RF Continued furosemide 20 mg tablet 20 mg PO DAILY Qty: 30 5RF albuterol sulfate 90 mcg/actuation HFA aerosol inhaler 1 inh inhalation Q6H PRN (Reason: shortness of breath or wheezing) Qty: 8.5 8RF ipratropium-albuterol 0.5 mg-3 mg(2.5 mg base)/3 mL solution for nebulization 3 ml inhalation Q6H PRNQty: 90 8RF Discharge Orders: Discharge Order (Routine); Ordered 05/15/25 Ordered By: Matthieu Raymond Patient Education: Omeprazole (By mouth) Additional Instructions: There is some uncertainty about the cause of your abdominal pain and chest pain that brought you to the hospital. Fortunately you got better. We found that you do have pancreatitis and gallstones and probably gastroesophageal reflux causing esophagitis. You also had very elevated calcium. The elevated calcium is likely due to taking excessive antacids, calcium carbonate or Tums. Limit your use of calcium carbonate or Tums to 2 pills up to 4 times a day. You may also use Maalox or Mylanta as needed. Take omeprazole every day to treat your reflux esophagitis. See your doctor in 1-2 weeks for recheck. If you continue to have problems you may need to go to a specialist in the [facility] for upper endoscopy or evaluation of gallbladder problems. Activity Level: Activity as Tolerated Discharge Diet: Regular Follow Up Appointments: Nish Rea MD [Primary Care Provider, Family Practice] - 05/29/25 12:45 pm Referral Note: [facility] for hospital follow[facility]. Forms: [employer] Info Instructions
[2025-05-15] MEDS: IPRAT-ALBUT 0.5-2.5 MG/3 ML NEB 1 NEB IH (11:53)
--- NOTE | 2025-05-15 12:22 | PC.NURSE ---
The patient discharged home with discharge instructions regarding follow up and if his pain were to resume. All questions were answered. All belongings sent with the patient. Vanessa MARTIN BSN
--- NOTE | 2025-05-29 14:05 | PC.NURSE ---
Clinic called to see if patient received a flu shot while in the hospital.
== END 2025-05-15 11:55 | disposition home or self-care (01) | DRG 391 ==
LOC: ED 10:45 → MEDSURG 12:43
PROVIDERS: Student in an Organized Health Care Education/Training Program; Admitting Provider Family Medicine; Emergency Provider Family Medicine; PCP Family Medicine; Visit Provider Family Medicine
DX: K21.00 Gastro-esophageal reflux disease with esophagitis, without bleeding (principal); K85.90 Acute pancreatitis without necrosis or infection, unspecified; G11.9 Hereditary ataxia, unspecified; K76.6 Portal hypertension; I85.00 Esophageal varices without bleeding; Z59.10 Inadequate housing, unspecified; K80.20 Calculus of gallbladder without cholecystitis without obstruction; R07.9 Chest pain, unspecified; R10.9 Unspecified abdominal pain; E83.42 Hypomagnesemia; E83.52 Hypercalcemia; B19.20 Unspecified viral hepatitis C without hepatic coma; I10 Essential (primary) hypertension; F17.210 Nicotine dependence, cigarettes, uncomplicated; J44.9 Chronic obstructive pulmonary disease, unspecified; K70.30 Alcoholic cirrhosis of liver without ascites; G62.9 Polyneuropathy, unspecified; F10.10 Alcohol abuse, uncomplicated; R16.0 Hepatomegaly, not elsewhere classified; F41.9 Anxiety disorder, unspecified; F32.A Depression, unspecified; R01.1 Cardiac murmur, unspecified; K21.9 Gastro-esophageal reflux disease without esophagitis; Z59.71 Insufficient health insurance coverage
CPT/HCPCS: 36415; 71045; 71275; 74177; 76705; 80048; 80053; 80076; 80306; 81001; 81003; 82306; 82310; 82330; 83605; 83690; 83735; 83880; 83970; 84145; 84443; 84478; 84484; 85025; 85610; 87040; 87086; 87186; 87631; 93005; 94640; 97116; 97161; 97165; 97535; 99285; 99291; A9270; J1200; J1650; J2270; J2405; J2470; J3475; J7030; Q9967

== ENCOUNTER 2025-05-29 13:34 | Outpatient (CLI) | payer OTHER, SELFPAY | END 2025-05-29 13:35 | disposition home or self-care (01) | LOC: NFLDREF 13:36 | PROVIDERS: PCP Family Medicine; Visit Provider Family Medicine | DX: K74.60 Unspecified cirrhosis of liver | CPT/HCPCS: 80053 ==